=== PATIENT | female | born 1935 | race Caucasian/White ===

== ENCOUNTER 2017-01-14 18:00 | Inpatient (IN) | payer MEDICARE, OTHER ==
[2017-01-14] MEDS ORDERED: Ondansetron 4 MG/2 ML SDV IVPUSH ONE (18:26)
[2017-01-14] MEDS ORDERED: Sodium Chloride 0.9% 500 ML IV SCH (18:30)
--- NOTE | 2017-01-14 18:34 | EDM.PDOC ---
ED HPI GENERAL MEDICAL PROBLEM - General Chief Complaint: General Stated Complaint: SENT BY DR. BAUTISTA Time Seen by Provider: 01/14/17 18:05 Source of Information: Reports: Patient, Provider History Limitations: Reports: No Limitations - History of Present Illness INITIAL COMMENTS - FREE TEXT/NARRATIVE: The patient was sent by Dr Bautista for renal insufficiency and hyperkalemia. The patient said on January 02 she had a physical and she was doing fine. The next days she developed nausea and dizziness. She said it is like the room is spinning. She says it is not there all the time. She denies any headache. She has no chest pain or shortness of breath. She has no vision changes or hearing changes. She has no abdominal pain. She has decreased appetite. She went to Dr Bautista's office today and he checked an EKG and labs. Her EKG shows a sinus bradycardia and LBBB which is all old for her. Her creatinine was 2.09 and BUN was elevated to 50. She is in renal insufficiency. Her K was elevated to 6.1. Dr Bautista sent her over for possible admission. Onset: Gradual Duration: Day(s): (10) Severity: Moderate Improves with: Reports: None Worsens with: Reports: Movement Associated Symptoms: Reports: Nausea/Vomiting. Denies: Confusion, Chest Pain, Cough, Fever/Chills, Shortness of Breath - Related Data Allergies Allergy/AdvReac Type Severity Reaction Status Date / Time No Known Allergies Allergy Verified 10/17/15 09:10 Home Meds: Home Meds Calcium Carbonate [Calcium] 600 mg PO DAILY 01/14/17 [History] Cyanocobalamin (Vitamin B-12) [Vitamin B-12] 2,500 mg PO DAILY 01/14/17 [History ] Diltiazem [Cardizem CD] 180 mg PO DAILY 01/14/17 [History] Hydrochlorothiazide 25 mg PO DAILY 01/14/17 [History] Multivitamin [Multivitamins] 1 tab PO DAILY 01/14/17 [History] [place]-3/DHA/Epa/Fish Oil [[place]-3 Fish Oil 1,000 MG Sfgl] 1,000 mg PO DAILY [History] Pantoprazole Sodium [Protonix] 40 mg PO BID 01/14/17 [History] Simvastatin [Zocor] 10 mg PO BEDTIME 01/14/17 [History] Valsartan 320 mg PO DAILY 01/14/17 [History] traMADol [Ultram] 50 mg PO Q6H PRN 01/14/17 [History] ED ROS GENERAL - Review of Systems Review Of Systems: See Below Constitutional: Reports: No Symptoms HEENT: Reports: No Symptoms Respiratory: Reports: No Symptoms Cardiovascular: Reports: No Symptoms Endocrine: Reports: No Symptoms GI/Abdominal: Reports: Nausea. Denies: Abdominal Pain, Vomiting : Reports: No Symptoms Musculoskeletal: Reports: No Symptoms Skin: Reports: No Symptoms Neurological: Reports: Dizziness. Denies: Headache ED EXAM, GENERAL - Physical Exam Exam: See Below Exam Limited By: No Limitations General Appearance: Alert, No Apparent Distress Eye Exam: Right Eye: Nystagmus Ears: Normal External Exam Nose: Normal Inspection Throat/Mouth: Normal Inspection Head: Atraumatic, Normocephalic Neck: Normal Inspection Respiratory/Chest: No Respiratory Distress, Lungs Clear, Normal Breath Sounds Cardiovascular: Regular Rate, Rhythm, No Edema, No Murmur GI/Abdominal: Soft, Non-Tender, No Organomegaly, No Mass Back Exam: Normal Inspection Extremities: Normal Inspection Neurological: Alert, Oriented, No Motor/Sensory Deficits Course - Vital Signs Last Recorded V/S: Last Vital Signs Temp 97.0 F 01/14/17 18:09 Pulse 63 01/14/17 18:09 Resp 20 01/14/17 18:09 BP 151/61 H 01/14/17 18:09 Pulse Ox 97 01/14/17 18:09 - Orders/Labs/Meds Orders: Active Orders 24 hr Category Date Time Status Cardiac Monitoring [RC] . DIRECTED Care 01/14/17 18:24 Active Peripheral IV Care [RC] . DIRECTED Care 01/14/17 18:24 Active Head wo Cont [CT] Stat Exams 01/14/17 18:25 Taken UA W/MICROSCOPIC [URIN] Stat Lab 01/14/17 18:24 Uncollected Sodium Chloride 0.9% [Normal Saline] 500 ml Med 01/14/17 18:30 Active IV .BOLUS Sodium Chloride 0.9% [Saline Flush] Med 01/14/17 18:24 Active 10 ml FLUSH ASDIRECTED PRN Peripheral IV Insertion Adult [OM.PC] Stat Oth 01/14/17 18:24 Ordered Medication Orders Sodium Chloride (Normal Saline) 500 mls @ 1,000 mls/hr IV .BOLUS SUELLEN Last Admin: 01/14/17 18:37 Dose: 1,000 mls/hr Sodium Chloride (Saline Flush) 10 ml FLUSH ASDIRECTED PRN PRN Reason: Keep Vein Open Last Admin: 01/14/17 18:40 Dose: 10 ml Labs: Laboratory Tests 01/14/17 Range/Units 18:20 Sodium 137 (136-145) mEq/L Potassium 5.4 H (3.5-5.1) mEq/L Chloride 102 (98-107) mEq/L Carbon Dioxide 25 (21-32) mEq/L Anion Gap 15.4 H (5-15) BUN 50 H (7-18) mg/dL Creatinine 2.2 H (0.55-1.02) mg/dL Est Cr Clr Drug Dosing 14.40 mL/min Estimated GFR (MDRD) 21 (>60) mL/min BUN/Creatinine Ratio 22.7 H (14-18) Glucose 98 (83-115) mg/dL Calcium 9.5 (8.5-10.1) mg/dL Total Bilirubin 0.3 (0.2-1.0) mg/dL AST 20 (15-37) U/L ALT 30 (14-59) U/L Alkaline Phosphatase 74 (46-116) U/L Troponin I < 0.017 (0.00-0.056) ng/mL Total Protein 7.7 (6.4-8.2) g/dl Albumin 4.2 (3.4-5.0) g/dl Globulin 3.5 gm/dL Albumin/Globulin Ratio 1.2 (1-2) Meds: Medications Generic Name Dose Route Start Last Admin Trade Name Freq PRN Reason Stop Dose Admin Sodium Chloride 500 mls @ 1,000 mls/hr 01/14/17 18:30 01/14/17 18:37 Normal Saline IV 1,000 mls/hr .BOLUS SUELLEN Administration Sodium Chloride 10 ml 01/14/17 18:24 01/14/17 18:40 Saline Flush FLUSH 10 ml ASDIRECTED PRN Administration Keep Vein Open Discontinued Medications Generic Name Dose Route Start Last Admin Trade Name Freq PRN Reason Stop Dose Admin Meclizine HCl 25 mg 01/14/17 18:26 01/14/17 18:40 Antivert PO 01/14/17 18:27 25 mg ONETIME ONE Administration Ondansetron HCl 4 mg 01/14/17 18:26 01/14/17 18:38 Zofran IVPUSH 01/14/17 18:27 4 mg ONETIME ONE Administration - Re-Assessments/Exams Free Text/Narrative Re-Assessment/Exam: 01/14/17 18:[address] of her head, labs, IV NS 500mL bolus, zofran 4mg IV and antivert 25mg by mouth. 01/14/17 19:32 Her CBC looks good from the clinic. He creatinine is elevated at 2.2 and her K was 5.4. Her BUN was 50. Her troponin is negative. Her EKG shows a LBBB and bradycardia. I feels she needs to be admitted. I called Dr Meza and she agreed to the admission. 01/14/17 19:[address] of her head looks good. Departure - Departure Time of Disposition: 19:35 Disposition: Refer to Observation Condition: Good Clinical Impression: Renal insufficiency, Hyperkalemia, Vertigo - Discharge Information Forms: ED Department Discharge - My Orders Last 24 Hours: My Active Orders 01/14/17 18:24 Cardiac Monitoring [RC] . DIRECTED Peripheral IV Care [RC] . DIRECTED UA W/MICROSCOPIC [URIN] Stat Sodium Chloride 0.9% [Saline Flush] 10 ml FLUSH ASDIRECTED PRN Peripheral IV Insertion Adult [OM.PC] Stat 01/14/17 18:25 Head wo Cont [CT] Stat 01/14/17 18:30 Sodium Chloride 0.9% [Normal Saline] 500 ml IV .BOLUS - Assessment/Plan Last 24 Hours: My Active Orders 01/14/17 18:24 Cardiac Monitoring [RC] . DIRECTED Peripheral IV Care [RC] . DIRECTED UA W/MICROSCOPIC [URIN] Stat Sodium Chloride 0.9% [Saline Flush] 10 ml FLUSH ASDIRECTED PRN Peripheral IV Insertion Adult [OM.PC] Stat 01/14/17 18:25 Head wo Cont [CT] Stat 01/14/17 18:30 Sodium Chloride 0.9% [Normal Saline] 500 ml IV .BOLUS
[2017-01-14] MEDS: Sodium Chloride 0.9% 10 ML Syringe FLUSH PRN (18:40)
[2017-01-14] MEDS ORDERED: Sodium Chloride 0.9% 500 ML IV ONE (19:38)
--- NOTE | 2017-01-14 19:42 | CT ---
Head CT Technique: Multiple axial sections through the brain were obtained. Intravenous contrast was not utilized. Comparison: Previous MRI brain of 07/12/12, no other intracranial imaging is available. Findings: Ventricles along with basal cisterns and sulci over the convexities appear within normal limits for the patient's age. Minimal areas of diminished density are seen within the periventricular and subcortical white matter compatible with minimal small vessel ischemic demyelination change. 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 No other abnormal parenchymal densities are seen. No evidence of intracranial hemorrhage. No midline shift or mass effect is seen. Minimal mucosal thickening is seen within the ethmoid sinuses which is felt to be incidental. No acute calvarial abnormality is appreciated. Impression: 1. Mild senescent change. Incidental sinus findings. 2. No acute intracranial abnormality is identified on noncontrast head CT exam. Diagnostic code #2
[2017-01-14] MEDS ORDERED: Acetaminophen Soln 650 MG/20.3 ML UD Cup PO PRN (20:43)
[2017-01-14] MEDS ORDERED: Lactated Ringers 1,000 ML IV SCH (20:45)
[2017-01-14] MEDS: Simvastatin 10 MG Tab PO SCH (20:55)
[2017-01-14] MEDS: Pantoprazole 40 MG Tab.CR PO SCH (20:55)
--- NOTE | 2017-01-14 20:58 | PCM.HP ---
H&P History of Present Illness - General Date of Service: 01/14/17 Admit Problem/Dx: Admission Diagnosis/Problem Admission Diagnosis/Problem Vertigo Source of Information: Provider History Limitations: Reports: No Limitations - History of Present Illness Initial Comments - Free Text/Narative: 81 year old female who had been recently treated for UTI with Bactrim; also recently took Ultram for back pain. She presents in ARF with hyperkalemia. Describes dizziness, no recent fall. Unable to clarify vertigo as a symptom, it appears doubtful. There has been a loss of appetite and a complaint of chills. Denies CP, cough or change to SOB. She had been seen in her PCP's office on the day of her admission and had been sent to the ED for further evaluation. 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 Onset of Symptoms: Reports: Unknown/Unsure Duration of Symptoms: Reports: Week(s):, Getting Worse Location: Reports: Abdomen Quality: Reports: Same as Previous Episode Severity: Moderate Improves with: Reports: Medication Worsens with: Reports: None Associated Symptoms: Reports: Fever/Chills, Loss of Appetite, Malaise, Weakness - Related Data Allergies/Adverse Reactions: Allergies Allergy/AdvReac Type Severity Reaction Status Date / Time No Known Allergies Allergy Verified 01/14/17 20:32 Home Medications: Home Meds Calcium Carbonate [Calcium] 600 mg PO DAILY 01/14/17 [History] Cyanocobalamin (Vitamin B-12) [Vitamin B-12] 2,500 mg PO DAILY 01/14/17 [History ] Diltiazem [Cardizem CD] 180 mg PO DAILY 01/14/17 [History] Hydrochlorothiazide 25 mg PO DAILY 01/14/17 [History] Multivitamin [Multivitamins] 1 tab PO DAILY 01/14/17 [History] [place]-3/DHA/Epa/Fish Oil [[place]-3 Fish Oil 1,000 MG Sfgl] 1,000 mg PO DAILY [History] Pantoprazole Sodium [Protonix] 40 mg PO BID 01/14/17 [History] Simvastatin [Zocor] 10 mg PO BEDTIME 01/14/17 [History] Valsartan 320 mg PO DAILY 01/14/17 [History] traMADol [Ultram] 50 mg PO Q6H PRN 01/14/17 [History] Past Medical History Cardiovascular History: Reports: Hypertension, Other (See Below) Other Cardiovascular History: hperlipidema Respiratory History: Reports: Other (See Below) Other Respiratory History: 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 Gastrointestinal History: Reports: GERD Musculoskeletal History: Reports: Other (See Below) Other Musculoskeletal History: pins and rods in low back Psychiatric History: Reports: Anxiety, Depression Oncologic (Cancer) History: Reports: Lung - Past Surgical History GI Surgical History: Reports: Cholecystectomy Musculoskeletal Surgical History: Reports: Knee Replacement Social & Family History - Tobacco Use Smoking Status *Q: Never Smoker Second Hand Smoke Exposure: Yes - Caffeine Use Caffeine Use: Reports: Coffee, Soda, Tea - Recreational Drug Use Recreational Drug Use: No H&P Review of Systems - Review of Systems: Review Of Systems: See Below General: Reports: Chills, Malaise, Weakness, Decreased Appetite HEENT: Reports: No Symptoms Pulmonary: Reports: No Symptoms Cardiovascular: Reports: Lightheadedness Gastrointestinal: Reports: Abdominal Pain, Decreased Appetite Genitourinary: Reports: No Symptoms Musculoskeletal: Reports: No Symptoms Skin: Reports: No Symptoms Psychiatric: Reports: No Symptoms Neurological: Reports: No Symptoms Hematologic/Lymphatic: Reports: No Symptoms Immunologic: Reports: No Symptoms Exam - Exam Exam: See Below - Vital Signs Vital Signs: Last Vital Signs Temp 36.1 C 01/14/17 18:09 Pulse 56 L 01/14/17 20:41 Resp 16 01/14/17 20:41 BP 134/82 01/14/17 20:41 Pulse Ox 97 01/14/17 20:41 Weight: 71.668 kg - Exam Quality Assessment: Urinary Catheter, DVT Prophylaxis General: Alert, Oriented, Cooperative HEENT: EOMI, Nares Patent, Normal Nasal Septum, Posterior Pharynx Clear, Pupils Equal, Pupils Reactive Neck: Supple, Trachea Midline Lungs: Normal Respiratory Effort Cardiovascular: Regular Rate, Regular Rhythm Abdomen: Normal Bowel Sounds, Soft (Female) Exam: Deferred Rectal (Female) Exam: Deferred Back Exam: Normal Inspection Extremities: Normal Inspection Skin: Warm Neurological: Cranial Nerves Intact Neuro Extensive - Mental Status: Alert, Oriented x3, Normal Mood/Affect, Normal Cognition Neuro Extensive - Motor, Sensory, Reflexes: CN II-XII Intact Psychiatric: Alert, Normal Affect, Normal Mood - Patient Data Result Diagrams: 01/14/17 18:20 *Q Meaningful Use (ADM) - VTE *Q VTE Criteria *Q: - Stroke *Q Stroke Criteria *Q: - AMI *Q AMI Criteria *Q: - Problem List (1) Dizziness SNOMED Code(s): 553818670, 852680356 ICD Code: R42 - DIZZINESS AND GIDDINESS Status: Acute Current Visit: Yes (2) Hyperkalemia SNOMED Code(s): 37519992 ICD Code: E87.5 - HYPERKALEMIA Status: Acute Current Visit: Yes (3) Renal insufficiency SNOMED Code(s): 015565261, 837730141 ICD Code: N28.9 - DISORDER OF KIDNEY AND URETER, UNSPECIFIED Status: Acute Current Visit: Yes (4) UTI (urinary tract infection) SNOMED Code(s): 14856862 ICD Code: N39.0 - URINARY TRACT INFECTION, SITE NOT SPECIFIED Status: Acute Current Visit: Yes (5) Back pain SNOMED Code(s): 464992778 ICD Code: M54.9 - DORSALGIA, UNSPECIFIED Status: Acute Current Visit: Yes (6) Hypertension SNOMED Code(s): 60060149 ICD Code: I10 - ESSENTIAL (PRIMARY) HYPERTENSION Status: Acute Current Visit: Yes (7) Hyperlipidemia SNOMED Code(s): 47257307 ICD Code: E78.5 - HYPERLIPIDEMIA, UNSPECIFIED Status: Acute Current Visit : Yes Problem List Initiated/Reviewed/Updated: Yes Orders Last 24hrs: Active Orders 24 hr Category Date Time Status Admission Status [Patient Status] [ADT] Routine ADT 01/14/17 20:18 Active Antiembolic Devices [RC] PER UNIT ROUTINE Care 01/14/17 20:28 Active Insert Costello Catheter [Insert Urinary Catheter] [OM.PC] Care 01/14/17 20:30 Ordered Q24H Urinary Catheter Assessment [RC] ASDIRECTED Care 01/14/17 20:28 Active Vital Signs [RC] PER UNIT ROUTINE Care 01/14/17 20:27 Active Consult to Occupational Therapy [OT Evaluation and Cons 01/15/17 09:00 Active Treatment] [CONS] Routine Consult to Physical Therapy [PT Evaluation and Cons 01/15/17 09:00 Active Treatment] [CONS] Routine Consult to Enroller [CONS] Routine Cons 01/14/17 20:33 Active BASIC METABOLIC PANEL,BMP [CHEM] DAILY Lab 01/15/17 05:00 Ordered BASIC METABOLIC PANEL,BMP [CHEM] DAILY Lab 01/16/17 05:00 Ordered BASIC METABOLIC PANEL,BMP [CHEM] DAILY Lab 01/17/17 05:00 Ordered BASIC METABOLIC PANEL,BMP [CHEM] DAILY Lab 01/18/17 05:00 Ordered CBC WITH AUTO DIFF [HEME] DAILY Lab 01/15/17 05:00 Ordered CBC WITH AUTO DIFF [HEME] DAILY Lab 01/16/17 05:00 Ordered CBC WITH AUTO DIFF [HEME] DAILY Lab 01/17/17 05:00 Ordered CBC WITH AUTO DIFF [HEME] DAILY Lab 01/18/17 05:00 Ordered CRP [C-REACTIVE PROTEIN] [CHEM] DAILY Lab 01/15/17 05:00 Ordered CRP [C-REACTIVE PROTEIN] [CHEM] DAILY Lab 01/16/17 05:00 Ordered CRP [C-REACTIVE PROTEIN] [CHEM] DAILY Lab 01/17/17 05:00 Ordered CRP [C-REACTIVE PROTEIN] [CHEM] DAILY Lab 01/18/17 05:00 Ordered CULTURE URINE [RM] Routine Lab 01/14/17 20:46 Uncollected MAGNESIUM [CHEM] DAILY Lab 01/15/17 05:00 Ordered MAGNESIUM [CHEM] DAILY Lab 01/16/17 05:00 Ordered MAGNESIUM [CHEM] DAILY Lab 01/17/17 05:00 Ordered MAGNESIUM [CHEM] DAILY Lab 01/18/17 05:00 Ordered Acetaminophen [Tylenol] Med 01/14/17 20:43 Active 650 mg PO Q6H PRN Calcium Carbonate Med 01/15/17 09:00 Active 600 mg PO DAILY Diltiazem [Cardizem] Med 01/15/17 09:00 Pending 90 mg PO Q12HR Heparin Sodium Med 01/14/17 21:00 Ordered 5,000 units SUBCUT Q8H Lactated Ringers [Ringers, Lactated] 1,000 ml Med 01/14/17 20:45 Active IV ASDIRECTED Lactated Ringers [Ringers, Lactated] 1,000 ml Med 01/14/17 23:45 Active IV ASDIRECTED Multivitamins,Therapeutic [Thera] Med 01/15/17 09:00 Active 1 each PO DAILY Pantoprazole [ProTONIX] Med 01/14/17 21:00 Active 40 mg PO BID@0700,2100 Simvastatin [Zocor] Med 01/14/17 21:00 Active 10 mg PO BEDTIME MAYI Hose [Antiembolic Hose] [OM.PC] Routine Oth 01/14/17 20:28 Ordered Code Status [Resuscitation Status] Routine Resus Stat 01/14/17 20:51 Ordered Medication Orders Acetaminophen (Tylenol) 650 mg PO Q6H PRN PRN Reason: Pain (moderate 4-6) Calcium Carbonate/Glycine (Calcium Carbonate) 600 mg PO DAILY SUELLEN Diltiazem HCl (Cardizem) 90 mg PO Q12HR SUELLEN Heparin Sodium (Porcine) (Heparin Sodium) 5,000 units SUBCUT Q8H SUELLEN Sodium Chloride (Normal Saline) 500 mls @ 1,000 mls/hr IV .BOLUS SUELLEN Stop: 01/14/17 23:30 Last Admin: 01/14/17 18:37 Dose: 1,000 mls/hr Lactated Ringer's (Ringers, Lactated) 1,000 mls @ 100 mls/hr IV ASDIRECTED SUELLEN Stop: 01/14/17 23:45 Lactated Ringer's (Ringers, Lactated) 1,000 mls @ 70 mls/hr IV ASDIRECTED SUELLEN Stop: 01/15/17 11:45 Multivitamins (Thera) 1 each PO DAILY SUELLEN Pantoprazole Sodium (Protonix) 40 mg PO BID@0700,2100 SUELLEN Simvastatin (Zocor) 10 mg PO BEDTIME SUELLEN Sodium Chloride (Saline Flush) 10 ml FLUSH ASDIRECTED PRN PRN Reason: Keep Vein Open Last Admin: 01/14/17 18:40 Dose: 10 ml Assessment/Plan Comment:: Impression: Hyperkalemia in ARF; dehydration Baseline CKD, stage? Dizziness cf vertigo, new onset? Hypertension, orthostatics are pending UTI, recent treatment with Bactrim DS Back pain, recent use of ultram Chronic Hyperlipidemia GERD Plan: IVF 24 Costello Cath for I/Os with ARF/hyperkalemia Check infectious source Kayexelate Daily Labs Hold ARB and renal toxic meds UFH for DVT prophylaxis GI prophylaxis SW/PT/OT
[2017-01-14] MEDS ORDERED: Sodium Polystyrene Sulfonate 15 GM/60 ML Susp 60 ML Bot PO ONE (21:05)
[2017-01-14] MEDS ORDERED: hydrALAZINE 20 MG/ML SDV IVPUSH PRN (21:18)
[2017-01-14] MEDS: Heparin Sodium 5,000 Units/ML Vial SUBCUT SCH (22:49)
[2017-01-14] MEDS: Lactated Ringers 1,000 ML IV SCH (23:57)
[2017-01-15] MEDS ORDERED: traZODone 50 MG Tab PO PRN (00:39)
[2017-01-15] MEDS: Heparin Sodium 5,000 Units/ML Vial SUBCUT SCH ×3 (06:07→21:44)
[2017-01-15] MEDS: Pantoprazole 40 MG Tab.CR PO SCH ×2 (06:07→21:43)
[2017-01-15] MEDS ORDERED: Diphtheria,Pertussis(Acell),Tetanus Vaccine 0.5 ML SDV IM ONE (07:43)
[2017-01-15] MEDS: Calcium Carbonate 600 MG Tab PO SCH (08:23)
[2017-01-15] MEDS: Multivitamins,Therapeutic Tab PO SCH (08:23)
--- NOTE | 2017-01-15 09:03 | PCM.PN ---
- General Info Date of Service: 01/15/17 Admission Dx/Problem (Free Text): Admission Diagnosis/Problem Admission Diagnosis/Problem Vertigo Subjective Update: Follow Up Functional Status: Reports: pain controlled, tolerating diet, ambulating, urinating. Denies: new symptoms - Review of Systems General: Denies: Fever, Weakness, Fatigue, Malaise, Chills HEENT: Reports: no symptoms Pulmonary: Denies: shortness of breath Cardiovascular: Reports: No Symptoms Gastrointestinal: Reports: No symptoms Genitourinary: Reports: no symptoms Musculoskeletal: Reports: no symptoms Skin: Reports: cyanosis, jaundice Neurological: Reports: Difficulty Walking, Gait Disturbance. Denies: Confusion , Weakness Psychiatric: Denies: depression, anxiety, agitation, hallucinations Systems Review Comment:: No overnight or acute issues. She is doing pretty good. She denies having vertigo. She has no new complaints. - Patient Data Vitals - most recent: Last Vital Signs Temp 36.4 C 01/15/17 08:23 Pulse 63 01/15/17 08:23 Resp 18 01/15/17 07:31 BP 122/43 L 01/15/17 08:23 Pulse Ox 98 01/15/17 08:23 Weight - most recent: 72.62 kg I&O - last 24 hours: Intake & Output 01/14/17 01/15/17 01/15/17 22:59 06:59 14:59 Intake Total 951 Output Total 475 350 Balance 476 -350 Lab Results last 24 hrs: Laboratory Results - last 24 hr 01/15/17 01/15/17 Range/Units 05:55 05:55 WBC 2.94 L (3.98-10.04) K/mm3 RBC 3.74 L (3.98-5.22) M/mm3 Hgb 11.1 L (11.2-15.7) gm/L Hct 34.2 (34.1-44.9) % MCV 91.4 (79.4-94.8) fl MCH 29.7 (25.6-32.2) pg MCHC 32.5 (32.2-35.5) g/dl RDW Std Deviation 42.3 (36.4-46.3) fL Plt Count 205 (182-369) K/mm3 MPV 10.4 (9.4-12.3) fl Neut % (Auto) 46.9 (34.0-71.1) % Lymph % (Auto) 41.2 (19.3-51.7) % [place] % (Auto) 8.2 (4.7-12.5) % Eos % (Auto) 3.4 (0.7-5.8) Baso % (Auto) 0.3 (0.1-1.2) % Neut # (Auto) 1.38 L (1.56-6.13) K/mm3 Lymph # (Auto) 1.21 (1.18-3.74) K/mm3 [place] # (Auto) 0.24 (0.24-0.36) K/mm3 Eos # (Auto) 0.10 (0.04-0.36) K/mm3 Baso # (Auto) 0.01 (0.01-0.08) K/mm3 Manual Slide Review Normal smear Sodium 139 (136-145) mEq/L Potassium 5.2 H (3.5-5.1) mEq/L Chloride 106 (98-107) mEq/L Carbon Dioxide 25 (21-32) mEq/L Anion Gap 13.2 (5-15) BUN 41 H (7-18) mg/dL Creatinine 1.7 H (0.55-1.02) mg/dL Est Cr Clr Drug Dosing 18.64 mL/min Estimated GFR (MDRD) 29 (>60) mL/min BUN/Creatinine Ratio 24.1 H (14-18) Glucose 99 (83-115) mg/dL Calcium 8.4 L (8.5-10.1) mg/dL Magnesium 1.9 (1.8-2.4) mg/dl C-Reactive Protein < 0.2 (<1.0) mg/dL Med Orders - Current: Current Medications Acetaminophen (Tylenol) 650 mg PO Q6H PRN PRN Reason: Pain (moderate 4-6) Calcium Carbonate/Glycine (Calcium Carbonate) 600 mg PO DAILY [facility] Last Admin: 01/15/17 08:23 Dose: 600 mg Diltiazem HCl (Cardizem) 90 mg PO Q12HR [facility] Heparin Sodium (Porcine) (Heparin Sodium) 5,000 units SUBCUT Q8HR [facility] Last Admin: 01/15/17 06:07 Dose: 5,000 units Hydralazine HCl (Apresoline) 20 mg IVPUSH Q8H PRN PRN Reason: Hypertension Lactated Ringer's (Ringers, Lactated) 1,000 mls @ 70 mls/hr IV ASDIRECTED [facility] Stop: 01/15/17 11:45 Last Admin: 01/14/17 23:57 Dose: 70 mls/hr Multivitamins (Thera) 1 each PO DAILY [facility] Last Admin: 01/15/17 08:23 Dose: 1 each Pantoprazole Sodium (Protonix) 40 mg PO BID@0700,2100 [facility] Last Admin: 01/15/17 06:07 Dose: 40 mg Simvastatin (Zocor) 10 mg PO BEDTIME [facility] Last Admin: 01/14/17 20:55 Dose: 10 mg Sodium Chloride (Saline Flush) 10 ml FLUSH ASDIRECTED PRN PRN Reason: Keep Vein Open Last Admin: 01/14/17 18:40 Dose: 10 ml Trazodone HCl (Trazodone) 50 mg PO ONETIME PRN PRN Reason: Sleep Last Admin: 01/15/17 00:57 Dose: 50 mg Discontinued Medications Diphtheria/Tetanus/Acell Pertussis (Adacel) 0.5 ml IM .ONCE ONE Stop: 01/15/17 07:44 Sodium Chloride (Normal Saline) 500 mls @ 1,000 mls/hr IV .BOLUS [facility] Stop: 01/14/17 23:30 Last Admin: 01/14/17 18:37 Dose: 1,000 mls/hr Sodium Chloride (Normal Saline) 500 mls @ 1,000 mls/hr IV .BOLUS ONE Stop: 01/14/17 20:07 Last Admin: 01/14/17 19:50 Dose: 1,000 mls/hr Lactated Ringer's (Ringers, Lactated) 1,000 mls @ 100 mls/hr IV ASDIRECTED [facility] Stop: 01/14/17 23:45 Last Admin: 01/14/17 20:56 Dose: 100 mls/hr Meclizine HCl (Antivert) 25 mg PO ONETIME ONE Stop: 01/14/17 18:27 Last Admin: 01/14/17 18:40 Dose: 25 mg Ondansetron HCl (Zofran) 4 mg IVPUSH ONETIME ONE Stop: 01/14/17 18:27 Last Admin: 01/14/17 18:38 Dose: 4 mg Sodium Polystyrene Sulfonate (Kayexalate) 45 gm PO NOW ONE Stop: 01/14/17 21:06 Last Admin: 01/14/17 21:56 Dose: 45 gm - Exam General: alert, oriented, cooperative, no acute distress HEENT: Pupils equal, Pupils reactive, EOMI, Mucous membr. moist/pink Neck: supple, trachea midline, no JVD Lungs: Clear to auscultation, Normal respiratory effort Cardiovascular: Regular Rate, Regular Rhythm Abdomen: bowel sounds present, no tenderness, no distension (Female) Exam: Deferred Back Exam: Normal Inspection, Decreased Range of Motion Extremities: no edema, normal pulses, no tenderness/swelling, no clubbing, no cyanosis, no calf tenderness Peripheral Pulses: 2+: Posterior Tibial (L), Posterior Tibial (R), Dorsalis Pedis (L), Dorsalis Pedis (R) Skin: warm, dry, intact Neurological: no new focal deficit Psy/Mental Status: alert, normal affect, normal mood - Problem List Review Problem List Initiated/Reviewed/Updated: Yes - Plan Plan:: Impression: Acute Renal Failure - Baseline Stage 3, GFR 39 (10/16/160 - 2/2 Volume Depletion from poor oral intake and continued intake of BP meds (ARB and Thiazide) - She is currently hydrating - Cr is improving, from 2.2 to 1.7 - Continue hydration and hold ARB/Thiazide Hyperkalemia, Improving - 2/2 ARF - Received initial treatment in ED - K 5.4 now 5.2 - Continue to monitor Dizziness cf vertigo, new onset? - Patient denies having vertigo and any hearing related issues - She admits having dizziness and lightheadedness - Her dizziness/lightheadedness was due to poor intake Borderline Hypotension - Improving - Continue to monitor UTI, recent treatment with Bactrim DS - She received 5 day course treatment - We have no urine culture - Will obtain additional report form her PCP's office Back Pain - On ultram for medical management - Also sees chiropractor for manual manipulation Resolved: Dehydration Chronic Hyperlipidemia GERD Plan: Patient is clinically stable Continue current treatment Discontinue bustamante catheter Will obtain additional records from her PCP's office [facility] for DVT prophylaxis GI prophylaxis SW/PT/OT Code status: 1 Took over care from Dr. Meza. Spoke to patient and confirmed with patient, she did not have vertigo (no spinning or wavy room/objects). She denies any hearing related issues. She admits to having dizziness and lightheadedness. She has been ill for a while and for the past 2 weeks as her symptoms get worse her oral intake significantly diminished. I felt this was the reason why she developed acute renal failure. She was also taking Bactrim that could have worsen her creatinine level but not necessarily her GFR. However this morning she feels pretty good and clinically stable. I expect discharge in the next couple of days.
[2017-01-15] MEDS: Lactated Ringers 1,000 ML IV SCH (10:00)
[2017-01-15] MEDS: Diltiazem IR 30 MG Tab PO SCH ×2 (10:26→21:43)
--- NOTE | 2017-01-15 13:10 | CR ---
Chest: 2 views of the chest were obtained. Comparison: Previous chest x-ray of 04/20/10. Heart size at the upper limits of normal. Mild tortuosity of the thoracic aorta is. Slight scarring is noted within the left upper chest which is stable. No acute appearing infiltrates are seen. Surgical clips are noted within the right abdomen. Mild scoliosis is present within the spine with scattered degenerative change. Impression: 1. Nothing acute is appreciated on 2 view chest x-ray. Incidental findings as noted above. Diagnostic code #2
[2017-01-15] MEDS: Simvastatin 10 MG Tab PO SCH (21:43)
[2017-01-16] MEDS: Pantoprazole 40 MG Tab.CR PO SCH ×2 (06:17→20:45)
[2017-01-16] MEDS: Heparin Sodium 5,000 Units/ML Vial SUBCUT SCH ×4 (06:17→23:42)
[2017-01-16] MEDS: Multivitamins,Therapeutic Tab PO SCH (08:33)
[2017-01-16] MEDS: Calcium Carbonate 600 MG Tab PO SCH (08:33)
[2017-01-16] MEDS: Diltiazem IR 30 MG Tab PO SCH ×2 (08:34→20:44)
[2017-01-16] MEDS: Sodium Chloride 0.9% 10 ML Syringe FLUSH PRN (08:37)
[2017-01-16] MEDS: Levofloxacin 250 MG Tab PO SCH (12:26)
--- NOTE | 2017-01-16 15:52 | PCM.PN ---
- General Info Date of Service: 01/16/17 Admission Dx/Problem (Free Text): Admission Diagnosis/Problem Admission Diagnosis/Problem Vertigo Subjective Update: Follow Up Functional Status: Reports: pain controlled, tolerating diet, ambulating, urinating, new symptoms (feels weak and tired this morning) - Review of Systems General: Reports: Weakness, Fatigue. Denies: Fever, Malaise, Chills HEENT: Reports: no symptoms Pulmonary: Denies: shortness of breath Cardiovascular: Denies: Chest Pain Gastrointestinal: Denies: Abdominal pain, Difficulty swallowing, Nausea, Vomiting Genitourinary: Reports: no symptoms Musculoskeletal: Reports: no symptoms Skin: Reports: no symptoms Neurological: Reports: Weakness. Denies: Confusion, Dizziness, Headache, Seizure, Tremors, Trouble Speaking, Difficulty Walking, Gait Disturbance Psychiatric: Denies: depression, anxiety, agitation, hallucinations Systems Review Comment:: No overnight issues. She feels weak and tired this morning. She thinks she is getting better. Her labs are fairly unremarkable with improving Cr level but slightly low Mg level at 1.7. - Patient Data Vitals - most recent: Last Vital Signs Temp 37.0 C 01/16/17 15:10 Pulse 73 01/16/17 15:10 Resp 14 01/16/17 15:10 BP 115/77 01/16/17 15:10 Pulse Ox 97 01/16/17 15:10 Weight - most recent: 73.119 kg I&O - last 24 hours: Intake & Output 01/16/17 01/16/17 01/16/17 06:59 14:59 22:59 Intake Total 400 400 918 Output Total 900 1500 Balance -500 400 -582 Lab Results last 24 hrs: Laboratory Results - last 24 hr 01/15/17 01/15/17 01/15/17 Range/Units 05:55 21:50 21:50 WBC (3.98-10.04) K/mm3 RBC (3.98-5.22) M/mm3 Hgb (11.2-15.7) gm/L Hct (34.1-44.9) % MCV (79.4-94.8) fl MCH (25.6-32.2) pg MCHC (32.2-35.5) g/dl RDW Std Deviation (36.4-46.3) fL Plt Count (182-369) K/mm3 MPV (9.4-12.3) fl Neut % (Auto) (34.0-71.1) % Lymph % (Auto) (19.3-51.7) % [place] % (Auto) (4.7-12.5) % Eos % (Auto) (0.7-5.8) Baso % (Auto) (0.1-1.2) % Neut # (Auto) (1.56-6.13) K/mm3 Lymph # (Auto) (1.18-3.74) K/mm3 [place] # (Auto) (0.24-0.36) K/mm3 Eos # (Auto) (0.04-0.36) K/mm3 Baso # (Auto) (0.01-0.08) K/mm3 Sodium 139 (136-145) mEq/L Potassium 5.2 H (3.5-5.1) mEq/L Chloride 106 (98-107) mEq/L Carbon Dioxide 25 (21-32) mEq/L Anion Gap 13.2 (5-15) BUN 41 H (7-18) mg/dL Creatinine 1.7 H (0.55-1.02) mg/dL Est Cr Clr Drug Dosing 18.64 mL/min Estimated GFR (MDRD) 29 (>60) mL/min BUN/Creatinine Ratio 24.1 H (14-18) Glucose 99 (83-115) mg/dL Calcium 8.4 L (8.5-10.1) mg/dL Magnesium 1.9 (1.8-2.4) mg/dl C-Reactive Protein < 0.2 (<1.0) mg/dL Urine Osmolality 369 L (400-1100) mosm/kg Ur Random Creatinine (30.0-125.0) mg/dL Ur Random Microalbumin 3.4 (1.3-20.0) mg/L Mycoplasma pneumon IgM Negative (NEGATIVE) 01/15/17 01/16/17 01/16/17 Range/Units 21:50 06:32 06:32 WBC 3.06 L (3.98-10.04) K/mm3 RBC 4.02 (3.98-5.22) M/mm3 Hgb 11.9 (11.2-15.7) gm/L Hct 36.5 (34.1-44.9) % MCV 90.8 (79.4-94.8) fl MCH 29.6 (25.6-32.2) pg MCHC 32.6 (32.2-35.5) g/dl RDW Std Deviation 41.7 (36.4-46.3) fL Plt Count 227 (182-369) K/mm3 MPV 10.5 (9.4-12.3) fl Neut % (Auto) 44.2 (34.0-71.1) % Lymph % (Auto) 42.8 (19.3-51.7) % [place] % (Auto) 7.5 (4.7-12.5) % Eos % (Auto) 5.2 (0.7-5.8) Baso % (Auto) 0.3 (0.1-1.2) % Neut # (Auto) 1.35 L (1.56-6.13) K/mm3 Lymph # (Auto) 1.31 (1.18-3.74) K/mm3 [place] # (Auto) 0.23 L (0.24-0.36) K/mm3 Eos # (Auto) 0.16 (0.04-0.36) K/mm3 Baso # (Auto) 0.01 (0.01-0.08) K/mm3 Sodium 141 (136-145) mEq/L Potassium 4.7 (3.5-5.1) mEq/L Chloride 106 (98-107) mEq/L Carbon Dioxide 29 (21-32) mEq/L Anion Gap 10.7 (5-15) BUN 30 H (7-18) mg/dL Creatinine 1.3 H (0.55-1.02) mg/dL Est Cr Clr Drug Dosing 24.38 mL/min Estimated GFR (MDRD) 39 (>60) mL/min BUN/Creatinine Ratio 23.1 H (14-18) Glucose 100 (83-115) mg/dL Calcium 9.2 (8.5-10.1) mg/dL Magnesium 1.7 L (1.8-2.4) mg/dl C-Reactive Protein < 0.2 (<1.0) mg/dL Urine Osmolality (400-1100) mosm/kg Ur Random Creatinine 48.5 (30.0-125.0) mg/dL Ur Random Microalbumin (1.3-20.0) mg/L Mycoplasma pneumon IgM (NEGATIVE) Med Orders - Current: Current Medications Acetaminophen (Tylenol) 650 mg PO Q6H PRN PRN Reason: Pain (moderate 4-6) Calcium Carbonate/Glycine (Calcium Carbonate) 600 mg PO DAILY [facility] Last Admin: 01/16/17 08:33 Dose: 600 mg Diltiazem HCl (Cardizem) 90 mg PO Q12HR [facility] Last Admin: 01/16/17 08:34 Dose: Not Given Heparin Sodium (Porcine) (Heparin Sodium) 5,000 units SUBCUT Q8HR [facility] Last Admin: 01/16/17 14:48 Dose: 5,000 units Hydralazine HCl (Apresoline) 20 mg IVPUSH Q8H PRN PRN Reason: Hypertension Levofloxacin (Levaquin) 250 mg PO Q24H [facility] Last Admin: 01/16/17 12:26 Dose: 250 mg Multivitamins (Thera) 1 each PO DAILY [facility] Last Admin: 01/16/17 08:33 Dose: 1 each Pantoprazole Sodium (Protonix) 40 mg PO BID@0700,2100 [facility] Last Admin: 01/16/17 06:17 Dose: 40 mg Simvastatin (Zocor) 10 mg PO BEDTIME [facility] Last Admin: 01/15/17 21:43 Dose: 10 mg Sodium Chloride (Saline Flush) 10 ml FLUSH ASDIRECTED PRN PRN Reason: Keep Vein Open Last Admin: 01/16/17 08:37 Dose: 10 ml Trazodone HCl (Trazodone) 50 mg PO ONETIME PRN PRN Reason: Sleep Last Admin: 01/15/17 00:57 Dose: 50 mg Discontinued Medications Diphtheria/Tetanus/Acell Pertussis (Adacel) 0.5 ml IM .ONCE ONE Stop: 01/15/17 07:44 Sodium Chloride (Normal Saline) 500 mls @ 1,000 mls/hr IV .BOLUS [facility] Stop: 01/14/17 23:30 Last Admin: 01/14/17 18:37 Dose: 1,000 mls/hr Sodium Chloride (Normal Saline) 500 mls @ 1,000 mls/hr IV .BOLUS ONE Stop: 01/14/17 20:07 Last Admin: 01/14/17 19:50 Dose: 1,000 mls/hr Lactated Ringer's (Ringers, Lactated) 1,000 mls @ 100 mls/hr IV ASDIRECTED [facility] Stop: 01/14/17 23:45 Last Admin: 01/14/17 20:56 Dose: 100 mls/hr Lactated Ringer's (Ringers, Lactated) 1,000 mls @ 70 mls/hr IV ASDIRECTED [facility] Stop: 01/15/17 11:45 Last Admin: 01/15/17 10:00 Dose: 70 mls/hr Meclizine HCl (Antivert) 25 mg PO ONETIME ONE Stop: 01/14/17 18:27 Last Admin: 01/14/17 18:40 Dose: 25 mg Ondansetron HCl (Zofran) 4 mg IVPUSH ONETIME ONE Stop: 01/14/17 18:27 Last Admin: 01/14/17 18:38 Dose: 4 mg Sodium Polystyrene Sulfonate (Kayexalate) 45 gm PO NOW ONE Stop: 01/14/17 21:06 Last Admin: 01/14/17 21:56 Dose: 45 gm - Exam General: alert, oriented, cooperative, no acute distress HEENT: Pupils equal, Pupils reactive, EOMI, Mucous membr. moist/pink Neck: supple, trachea midline Lungs: Normal respiratory effort, Decreased breath sounds Cardiovascular: Regular Rate, Regular Rhythm Abdomen: bowel sounds present, soft, no tenderness, no distension (Female) Exam: Deferred Back Exam: Normal Inspection, Decreased Range of Motion Extremities: no edema, normal pulses, no tenderness/swelling, no clubbing, no cyanosis, no calf tenderness Peripheral Pulses: 2+: Dorsalis Pedis (L), Dorsalis Pedis (R) Skin: warm, dry, intact Neurological: no new focal deficit Psy/Mental Status: alert, normal affect, normal mood - Problem List Review Problem List Initiated/Reviewed/Updated: Yes - My Orders Last 24 Hours: My Active Orders 01/15/17 17:49 Retroperitoneal Comp [US] Routine 01/15/17 17:51 URIC ACID, URINE Routine 01/15/17 17:53 EOSINOPHILS, URINE Routine 01/16/17 11:00 Levofloxacin [Levaquin] 250 mg PO Q24H - Plan Plan:: Impression: Acute Renal Failure, Improving - Baseline Stage 3, GFR 39 (4/14/160 - 2/2 Volume Depletion from poor oral intake and continued intake of BP meds (ARB and Thiazide) - Cr continues to improve, level is now 1.3 from 1.7 - Continue hydration and hold ARB/Thiazide - Renal studies fairly unremarkable - Renal U/S: no acute findings UTI positive for E.coli (UA cx from PCP's office) - Treated with Bactrim DS for 7 days but completed only 5 days - Start Low dose Levaquin 250 mg po daily, first dose now Back Pain - On Ultram for medical management - Also sees chiropractor for manual manipulation Generalized Weakness - Likely from above - PT/OT consult Hypomagnesemia - Mg level is 1.7 - Pharmacy to replete and monitor Resolved: Dehydration S/p Hyperkalemia - 2/2 ARF - Received initial treatment in ED - K 5.4 now 5.2 - Continue to monitor S/p Dizziness cf vertigo, new onset? - Patient denies having vertigo and any hearing related issues - She admits having dizziness and lightheadedness - Her dizziness/lightheadedness was due to poor intake S/p Borderline Hypotension - Continue to monitor Chronic: Hyperlipidemia GERD Plan: Patient remains clinically stable Continue current treatment Change to inpatient status CXR was benign and Mycoplasma Ag was negative UFH for DVT prophylaxis GI prophylaxis Code status: 1 Ambulated TID as tolerated Possible d/c in 1-2 days
[2017-01-16] MEDS: Simvastatin 10 MG Tab PO SCH (20:45)
[2017-01-17] MEDS: Pantoprazole 40 MG Tab.CR PO SCH (06:36)
[2017-01-17] MEDS: Heparin Sodium 5,000 Units/ML Vial SUBCUT SCH ×2 (06:36→16:07)
[2017-01-17] MEDS ORDERED: Magnesium Sulfate/Water 2 GM in Premix Bag 1 BAG IV ONE (08:30)
[2017-01-17] MEDS: Multivitamins,Therapeutic Tab PO SCH (08:30)
[2017-01-17] MEDS: Calcium Carbonate 600 MG Tab PO SCH (08:30)
[2017-01-17] MEDS: Diltiazem IR 30 MG Tab PO SCH (08:30)
--- NOTE | 2017-01-17 10:05 | PCM.DCSUM1 ---
Discharge Summary - Hospital Course Brief History: This is an 81 year old elderly white female who had been recently treated for UTI with Bactrim and was found to have acute renal failure with hyperkalemia. She was admitted for medical management. - Discharge Data Discharge Date: 01/17/17 Discharge Disposition: Home, Self-Care 01 Condition: Good - Discharge Diagnosis/Problem(s) (1) Generalized weakness SNOMED Code(s): 61654419 ICD Code: R53.1 - WEAKNESS Status: Resolved (2) Back pain SNOMED Code(s): 669487007 ICD Code: M54.9 - DORSALGIA, UNSPECIFIED Status: Chronic Qualifiers: Back pain location: low back pain Chronicity: chronic Back pain laterality: bilateral Sciatica presence: unspecified whether sciatica present Qualified Code(s): M54.5 - Low back pain; G89.29 - Other chronic pain (3) Dizziness SNOMED Code(s): 368821839, 117734360 ICD Code: R42 - DIZZINESS AND GIDDINESS Status: Resolved (4) Hyperkalemia SNOMED Code(s): 79640970 ICD Code: E87.5 - HYPERKALEMIA Status: Resolved (5) Renal insufficiency SNOMED Code(s): 747587359, 904194094 ICD Code: N28.9 - DISORDER OF KIDNEY AND URETER, UNSPECIFIED Status: Chronic (6) UTI (urinary tract infection) SNOMED Code(s): 29116479 ICD Code: N39.0 - URINARY TRACT INFECTION, SITE NOT SPECIFIED Status: Resolved Qualifiers: Urinary tract infection type: site unspecified Hematuria presence: without hematuria Qualified Code(s): N39.0 - Urinary tract infection, site not specified - Patient Summary/Data Operative Procedure(s) Performed: None Complications: None Consults: None Labs Pending at D/C: None Hospital Course: Patient was primarily admitted for medical management of acute renal failure secondary to UTI. She initially had a urinary tract infection and was treated outpatient. Unfortunately, she did not complete her treatment as prescribed. Patient progressively decline and so was her oral intake. As a result, her renal perfusion diminished. However, her work up to include renal ultrasound were unremarkable. On this admission, the patient was provided supportive care along with adequate IV hydration. She responded well on this regimen. As for her UTI, she was given additional course of antibiotic to take based on sensitivity of her urine culture obtained from her PCP's office. Her hospital course was uncomplicated. Patient improved significantly and she is now ready for discharge. Patient was advised to drink plenty of fluids. She was further advised to follow-up with her primary care doctor as scheduled. Her PCP was called and updated on her discharge care plan on the day of discharge. - Patient Instructions Diet: Usual Diet as Tolerated Activity: As Tolerated Driving: Do Not Drive Showering/Bathing: May Shower Notify Provider of: Fever, Increased Pain, Nausea and/or Vomiting Other/Special Instructions: - Please resume all home medications as directed. - Call your doctor for any questions or concerns - Discharge Plan Home Medications: Home Meds Calcium Carbonate [Calcium] 600 mg PO DAILY 01/14/17 [History] Cyanocobalamin (Vitamin B-12) [Vitamin B-12] 2,500 mg PO DAILY 01/14/17 [History ] Diltiazem [Cardizem CD] 180 mg PO DAILY 01/14/17 [History] Hydrochlorothiazide 12.5 mg PO DAILY 01/14/17 [History] Multivitamin [Multivitamins] 1 tab PO DAILY 01/14/17 [History] Tamms-3/DHA/Epa/Fish Oil [Tamms-3 Fish Oil 1,000 MG Sfgl] 1,000 mg PO DAILY [History] Pantoprazole Sodium [Protonix] 40 mg PO DAILY 01/14/17 [History] Simvastatin [Zocor] 10 mg PO BEDTIME 01/14/17 [History] Valsartan 320 mg PO DAILY 01/14/17 [History] traMADol [Ultram] 50 mg PO Q6H PRN 01/14/17 [History] Patient Handouts: Urinary Tract Infection, Adult, [id number], Dizziness, Easy -to-Read Referrals: Miles Bautista MD [Primary Care Provider] - (Please make a follow-up appointment to see in 1 week.) - Discharge Summary/Plan Comment DC Time >30 min.: Yes (45 mins) Discharge Summary/Plan Comment: Discharge to Home - General Info Date of Service: 01/17/17 Admission Dx/Problem (Free Text: Admission Diagnosis/Problem Admission Diagnosis/Problem Vertigo Subjective Update: Follow Up Functional Status: Reports: Pain Controlled, Tolerating Diet, Ambulating, Urinating. Denies: New Symptoms - Review of Systems General: Denies: Fever, Weakness, Fatigue, Malaise, Chills HEENT: Reports: No Symptoms Pulmonary: Denies: Shortness of Breath Cardiovascular: Denies: Chest Pain Gastrointestinal: Denies: Difficulty Swallowing, Nausea, Vomiting Genitourinary: Reports: No Symptoms Musculoskeletal: Reports: Back Pain Skin: Denies: Cyanosis, Pruritis, Rash Neurological: Denies: Confusion, Dizziness, Difficulty Walking, Weakness, Gait Disturbance Psychiatric: Denies: Depression, Anxiety, Hallucinations Systems Review Comment: No overnight or acute issues. She is doing relatively well. She has no new complaints. She wants to go home. - Patient Data Vitals - Most Recent: Last Vital Signs Temp 36.7 C 01/17/17 03:33 Pulse 62 01/17/17 03:33 Resp 14 01/17/17 03:33 BP 115/94 H 01/17/17 03:33 Pulse Ox 95 01/17/17 03:33 Weight - Most Recent: 72.938 kg I&O - Last 24 hours: Intake & Output 01/16/17 01/17/17 01/17/17 22:59 06:59 14:59 Intake Total 480 800 Output Total 1350 Balance 480 -550 Lab Results - Last 24 hrs: Laboratory Results - last 24 hr 01/17/17 01/17/17 Range/Units 05:45 05:45 WBC 2.87 L (3.98-10.04) K/mm3 RBC 3.91 L (3.98-5.22) M/mm3 Hgb 11.7 (11.2-15.7) gm/L Hct 35.0 (34.1-44.9) % MCV 89.5 (79.4-94.8) fl MCH 29.9 (25.6-32.2) pg MCHC 33.4 (32.2-35.5) g/dl RDW Std Deviation 40.1 (36.4-46.3) fL Plt Count 211 (182-369) K/mm3 MPV 10.5 (9.4-12.3) fl Neut % (Auto) 44.9 (34.0-71.1) % Lymph % (Auto) 42.5 (19.3-51.7) % [place] % (Auto) 7.0 (4.7-12.5) % Eos % (Auto) 4.9 (0.7-5.8) Baso % (Auto) 0.7 (0.1-1.2) % Neut # (Auto) 1.29 L (1.56-6.13) K/mm3 Lymph # (Auto) 1.22 (1.18-3.74) K/mm3 [place] # (Auto) 0.20 L (0.24-0.36) K/mm3 Eos # (Auto) 0.14 (0.04-0.36) K/mm3 Baso # (Auto) 0.02 (0.01-0.08) K/mm3 Manual Slide Review Abnormal smear Sodium 139 (136-145) mEq/L Potassium 4.5 (3.5-5.1) mEq/L Chloride 105 (98-107) mEq/L Carbon Dioxide 30 (21-32) mEq/L Anion Gap 8.5 (5-15) BUN 24 H (7-18) mg/dL Creatinine 1.4 H (0.55-1.02) mg/dL Est Cr Clr Drug Dosing 22.64 mL/min Estimated GFR (MDRD) 36 (>60) mL/min BUN/Creatinine Ratio 17.1 (14-18) Glucose 93 (83-115) mg/dL Calcium 9.0 (8.5-10.1) mg/dL Magnesium 1.8 (1.8-2.4) mg/dl C-Reactive Protein < 0.2 (<1.0) mg/dL Med Orders - Current: Current Medications Acetaminophen (Tylenol) 650 mg PO Q6H PRN PRN Reason: Pain (moderate 4-6) Calcium Carbonate/Glycine (Calcium Carbonate) 600 mg PO DAILY [facility] Last Admin: 01/17/17 08:30 Dose: 600 mg Diltiazem HCl (Cardizem) 90 mg PO Q12HR [facility] Last Admin: 01/17/17 08:30 Dose: Not Given Heparin Sodium (Porcine) (Heparin Sodium) 5,000 units SUBCUT Q8HR [facility] Last Admin: 01/17/17 06:36 Dose: 5,000 units Hydralazine HCl (Apresoline) 20 mg IVPUSH Q8H PRN PRN Reason: Hypertension Levofloxacin (Levaquin) 250 mg PO Q24H [facility] Last Admin: 01/16/17 12:26 Dose: 250 mg Magnesium Sulfate (Pharmacy To Dose - Magnesium Replacement) 1 dose .XX ASDIRECTED [facility] Multivitamins (Thera) 1 each PO DAILY [facility] Last Admin: 01/17/17 08:30 Dose: 1 each Pantoprazole Sodium (Protonix) 40 mg PO BID@0700,2100 [facility] Last Admin: 01/17/17 06:36 Dose: 40 mg Potassium Chloride (Pharmacy To Dose - Potassium Replacement) 1 dose .XX ASDIRECTED [facility] Simvastatin (Zocor) 10 mg PO BEDTIME [facility] Last Admin: 01/16/17 20:45 Dose: 10 mg Sodium Chloride (Saline Flush) 10 ml FLUSH ASDIRECTED PRN PRN Reason: Keep Vein Open Last Admin: 01/16/17 08:37 Dose: 10 ml Trazodone HCl (Trazodone) 50 mg PO ONETIME PRN PRN Reason: Sleep Last Admin: 01/15/17 00:57 Dose: 50 mg Discontinued Medications Diphtheria/Tetanus/Acell Pertussis (Adacel) 0.5 ml IM .ONCE ONE Stop: 01/15/17 07:44 Sodium Chloride (Normal Saline) 500 mls @ 1,000 mls/hr IV .BOLUS [facility] Stop: 01/14/17 23:30 Last Admin: 01/14/17 18:37 Dose: 1,000 mls/hr Sodium Chloride (Normal Saline) 500 mls @ 1,000 mls/hr IV .BOLUS ONE Stop: 01/14/17 20:07 Last Admin: 01/14/17 19:50 Dose: 1,000 mls/hr Lactated Ringer's (Ringers, Lactated) 1,000 mls @ 100 mls/hr IV ASDIRECTED [facility] Stop: 01/14/17 23:45 Last Admin: 01/14/17 20:56 Dose: 100 mls/hr Lactated Ringer's (Ringers, Lactated) 1,000 mls @ 70 mls/hr IV ASDIRECTED [facility] Stop: 01/15/17 11:45 Last Admin: 01/15/17 10:00 Dose: 70 mls/hr Magnesium Sulfate/Dextrose 1 (gm/ Premix) 100 mls @ 100 mls/hr IV ONETIME ONE Stop: 01/16/17 17:29 Last Admin: 01/16/17 17:14 Dose: 100 mls/hr Magnesium Sulfate 2 gm/ Premix 50 mls @ 50 mls/hr IV ONETIME ONE Stop: 01/17/17 09:29 Last Admin: 01/17/17 08:37 Dose: 50 mls/hr Meclizine HCl (Antivert) 25 mg PO ONETIME ONE Stop: 01/14/17 18:27 Last Admin: 01/14/17 18:40 Dose: 25 mg Ondansetron HCl (Zofran) 4 mg IVPUSH ONETIME ONE Stop: 01/14/17 18:27 Last Admin: 01/14/17 18:38 Dose: 4 mg Sodium Polystyrene Sulfonate (Kayexalate) 45 gm PO NOW ONE Stop: 01/14/17 21:06 Last Admin: 01/14/17 21:56 Dose: 45 gm - Exam General: Reports: alert, oriented, cooperative, no acute distress HEENT: Reports: Pupils equal, Pupils reactive, EOMI, Mucous membr. moist/pink Neck: Reports: supple, trachea midline, no JVD, no thyromegaly Lungs: Reports: Clear to Auscultation, Normal Respiratory Effort Cardiovascular: Reports: Regular Rate, Regular Rhythm Abdomen: Reports: bowel sounds present, soft, no tenderness (Female) Exam: Deferred Rectal (Female) Exam: Deferred Back Exam: Reports: Normal Inspection, Decreased Range of Motion, Vertebral Tenderness Extremities: Reports: no edema, normal pulses, no tenderness/swelling, no clubbing, no cyanosis, no calf tenderness Skin: Reports: warm, dry, intact Neurological: Reports: no new focal deficit Psy/Mental Status: Reports: alert, normal affect, normal mood *Q Meaningful Use (DIS) - VTE *Q VTE Criteria *Q: - Stroke *Q Stroke Criteria *Q: - AMI *Q AMI Criteria *Q:
[2017-01-17 10:29] VITALS: BP 120/71
[2017-01-17] MEDS: Levofloxacin 250 MG Tab PO SCH (10:29)
--- NOTE | 2017-01-17 11:39 | US ---
Renal ultrasound: Multiple real-time images of the kidneys were obtained. Comparison: Previous CT abdomen exam of 03/08/13. Technologist's note: Suboptimal exam due to bowel gas and patient difficulty following breathing instructions. Right and left kidneys show no discrete hydronephrosis or mass. Small cyst is believed to be present within the upper right kidney measuring about 1 cm. Small cyst is seen in this location on prior CT exam. Right kidney measures 10.6 cm in length. Left kidney measures 9.6 cm in length. No abnormality is appreciated within the bladder. Impression: 1. Small upper pole right renal cyst. 2. No additional abnormality is appreciated on renal ultrasound exam. Diagnostic code #2 I agree with preliminary report issued by [facility] ([facility] report finalized on 01/15/17, 10:36 PM Central Time)
== END 2017-01-17 14:37 | disposition home or self-care (01) | DRG 683 ==
LOC: JD.ED 18:00 → JD.MS 20:06 → OBSVTOIN 01-16 15:22
PROVIDERS: ADMIT Internal Medicine Cardiovascular Disease; ATTEND Internal Medicine Cardiovascular Disease
PROC: 0T9B70Z Drainage of Bladder with Drainage Device, Via Natural or Artificial Opening (ICD-10-PCS; principal; 2017-01-14)
DX: N17.9 Acute kidney failure, unspecified (principal); N28.9 Disorder of kidney and ureter, unspecified; N39.0 Urinary tract infection, site not specified; E87.5 Hyperkalemia; E86.0 Dehydration; R42 Dizziness and giddiness; R53.1 Weakness; E78.5 Hyperlipidemia, unspecified; M54.9 Dorsalgia, unspecified; F32.9 Major depressive disorder, single episode, unspecified; K21.9 Gastro-esophageal reflux disease without esophagitis; F41.9 Anxiety disorder, unspecified; Z79.899 Other long term (current) drug therapy; Z85.118 Personal history of other malignant neoplasm of bronchus and lung; Z96.659 Presence of unspecified artificial knee joint
CPT/HCPCS: 36415 ×3; 51702; 70450; 71020; 76770; 80048 ×2; 80053; 81001; 82570; 83735 ×2; 83935; 84484; 85025 ×2; 85049; 86140 ×2; 86738; 87086; 94760; 96361 ×2; 96372 ×3; 96374; 97116 ×4; 97162; 97165; 99285; A9270 ×15; G0378; J1644 ×6; J2405; J7040 ×2; J7050 ×2; J7120 ×3; 82044; 87088; 87184; 87186; 90715; 99284; J3475

== ENCOUNTER 2018-10-01 10:29 | Emergency (ER) | payer MEDICARE, OTHER ==
[2018-10-01] MEDS ORDERED: Sodium Chloride 0.9% 10 ML Syringe FLUSH PRN (10:55)
--- NOTE | 2018-10-01 11:48 | EDM.PDOC ---
ED HPI GENERAL MEDICAL PROBLEM - General Chief Complaint: Cardiovascular Problem Stated Complaint: R EYE VISION PROBLEMS Time Seen by Provider: 10/01/18 10:36 Source of Information: Reports: Patient, RN Notes Reviewed - History of Present Illness INITIAL COMMENTS - FREE TEXT/NARRATIVE: 83-year-old comes in complaint of generalized weakness, dizziness this morning and seeing "black spots in her field of vision for the past month". She states she has been too busy to see her regular medical provider or eye doctor for that. there has been no eye discomfort. She has not been having difficulty with headache, nausea or vomiting. No chest pain or difficulty breathing. The dizziness that she did have this morning has resolved. Did cause enough concern to come into the ED. She is concerned that it may be related to "the dark spots that she has been seeing". Her vision has been okay, able to read and carry-on with other activities of life without difficulty. She also does have a small bruises morning inferior and medial aspect of left thigh. That also is of some concern to them. She did not have that yesterday. She does not recall any particular fall or injury. She is not on blood thinner medication at this time. - Related Data Allergies Allergy/AdvReac Type Severity Reaction Status Date / Time No Known Allergies Allergy Verified 10/01/18 10:37 Home Meds: Home Meds Cyanocobalamin (Vitamin B-12) [Vitamin B-12] 1,000 mcg PO DAILY 01/14/17 [ History] Diltiazem [Cardizem CD] 180 mg PO DAILY 01/14/17 [History] Simvastatin [Zocor] 10 mg PO BEDTIME 01/14/17 [History] Cholecalciferol (Vitamin D3) [Vitamin D3] 5,000 units PO DAILY 10/01/18 [History ] Losartan [Cozaar] 100 mg PO DAILY 10/01/18 [History] Past Medical History HEENT History: Reports: Impaired Vision, Other (See Below) Other HEENT History: wears glasses Cardiovascular History: Reports: Hypertension, Other (See Below) Other Cardiovascular History: hperlipidema Respiratory History: Reports: Other (See Below) Other Respiratory History: 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 Gastrointestinal History: Reports: GERD [employer] History: Reports: Musculoskeletal History: Reports: Other (See Below) Other Musculoskeletal History: pins and rods in low back Psychiatric History: Reports: Anxiety, Depression Endocrine/Metabolic History: Reports: Obesity/BMI 30+ Oncologic (Cancer) History: Reports: Lung - Infectious Disease History Infectious Disease History: Reports: Influenza - Past Surgical History HEENT Surgical History: Reports: None GI Surgical History: Reports: Cholecystectomy Endocrine Surgical History: Reports: None Musculoskeletal Surgical History: Reports: Knee Replacement Social & Family History - Family History Family Medical History: Noncontributory - Tobacco Use Smoking Status *Q: Never Smoker - Caffeine Use Caffeine Use: Reports: Coffee Other Caffeine Use: "not every day" - Recreational Drug Use Recreational Drug Use: No ED ROS GENERAL - Review of Systems Review Of Systems: See Below Constitutional: Denies: Fever, Chills, Diaphoresis HEENT: Denies: Ear Pain, Rhinitis, Sinus Problem, Throat Pain Respiratory: Denies: Shortness of Breath, Pleuritic Chest Pain, Cough Cardiovascular: Denies: Chest Pain GI/Abdominal: Reports: Nausea. Denies: Abdominal Pain, Diarrhea, Vomiting (Gone ) Musculoskeletal: Denies: Shoulder Pain, Arm Pain Skin: Reports: No Symptoms Neurological: Reports: Dizziness (Now better). Denies: Trouble Speaking, Difficulty Walking ED EXAM, GENERAL - Physical Exam Exam: See Below General Appearance: Alert, No Apparent Distress Throat/Mouth: Normal Inspection, Normal Oropharynx Head: Atraumatic. No: Facial Swelling Neck: Supple, Full Range of Motion Respiratory/Chest: No Respiratory Distress, Lungs Clear, Normal Breath Sounds Cardiovascular: Regular Rate, Rhythm GI/Abdominal: Soft, Non-Tender Extremities: Normal Inspection, Normal Range of Motion. No: Pedal Edema, Leg Pain, Increased Warmth, Redness Neurological: Alert, Oriented, No Motor/Sensory Deficits Skin Exam: Warm, Dry, Normal Color EKG INTERPRETATION EKG Date: 10/01/18 Rhythm: NSR [place]: Normal P-Wave: Present QRS: LBBB Course - Vital Signs Last Recorded V/S: Last Vital Signs Temp 97.1 F 10/01/18 10:34 Pulse 64 10/01/18 10:34 Resp 16 10/01/18 10:34 BP 195/66 H 10/01/18 10:34 Pulse Ox 95 10/01/18 10:34 - Orders/Labs/Meds Orders: Active Orders 24 hr Category Date Time Status EKG 12 Lead [EKG Documentation Completion] [RC] STAT Care 10/01/18 10:56 Active Peripheral IV Care [RC] . DIRECTED Care 10/01/18 10:56 Active Sodium Chloride 0.9% [Saline Flush] Med 10/01/18 10:55 Active 10 ml FLUSH ASDIRECTED PRN Peripheral IV Insertion Adult [OM.PC] Stat Oth 10/01/18 10:56 Ordered Medication Orders Sodium Chloride (Saline Flush) 10 ml FLUSH ASDIRECTED PRN PRN Reason: Keep Vein Open Last Admin: 10/01/18 11:33 Dose: 10 ml Labs: Laboratory Tests 10/01/18 10/01/18 Range/Units 11:36 11:36 WBC 3.65 L (3.98-10.04) K/mm3 RBC 4.14 (3.98-5.22) M/mm3 Hgb 12.1 (11.2-15.7) gm/L Hct 37.4 (34.1-44.9) % MCV 90.3 (79.4-94.8) fl MCH 29.2 (25.6-32.2) pg MCHC 32.4 (32.2-35.5) g/dl RDW Std Deviation 43.5 (36.4-46.3) fL Plt Count 258 (182-369) K/mm3 MPV 9.8 (9.4-12.3) fl Neut % (Auto) 57.5 (34.0-71.1) % Lymph % (Auto) 32.6 (19.3-51.7) % [place] % (Auto) 8.5 (4.7-12.5) % Eos % (Auto) 1.1 (0.7-5.8) Baso % (Auto) 0.3 (0.1-1.2) % Neut # (Auto) 2.10 (1.56-6.13) K/mm3 Lymph # (Auto) 1.19 (1.18-3.74) K/mm3 [place] # (Auto) 0.31 (0.24-0.36) K/mm3 Eos # (Auto) 0.04 (0.04-0.36) K/mm3 Baso # (Auto) 0.01 (0.01-0.08) K/mm3 Sodium 141 (136-145) mEq/L Potassium 4.3 (3.5-5.1) mEq/L Chloride 106 (98-107) mEq/L Carbon Dioxide 28 (21-32) mEq/L Anion Gap 11.3 (5-15) BUN 18 (7-18) mg/dL Creatinine 1.0 (0.55-1.02) mg/dL Est Cr Clr Drug Dosing 33.71 mL/min Estimated GFR (MDRD) 53 (>60) mL/min BUN/Creatinine Ratio 18.0 (14-18) Glucose 96 (83-115) mg/dL Calcium 9.4 (8.5-10.1) mg/dL Total Bilirubin 0.7 (0.2-1.0) mg/dL AST 18 (15-37) U/L ALT 20 (14-59) U/L Alkaline Phosphatase 72 (46-116) U/L Troponin I < 0.017 (0.00-0.056) ng/mL Total Protein 6.3 L (6.4-8.2) g/dl Albumin 3.5 (3.4-5.0) g/dl Globulin 2.8 gm/dL Albumin/Globulin Ratio 1.3 (1-2) Meds: Medications Generic Name Dose Route Start Last Admin Trade Name Freq PRN Reason Stop Dose Admin Sodium Chloride 10 ml 10/01/18 10:55 10/01/18 11:33 Saline Flush FLUSH 10 ml ASDIRECTED PRN Administration Keep Vein Open Departure - Departure Time of Disposition: 12:48 Disposition: Home, Self-Care 01 Condition: Fair Clinical Impression: Dizziness Bruise of face Qualifiers: Encounter type: initial encounter Qualified Code(s): S00.83XA - Contusion of other part of head, initial encounter Referrals: Jhoana Verdin MD [Primary Care Provider] - Forms: ED Department Discharge Additional Instructions: Rest, drink plenty of water to maintain hydration, check your blood pressure once or twice daily and keep a log of that for Dr. Verdin, continue current medications as prescribed. See your regular eye doctor as soon as possible, call for appointment. Follow up with Dr. Verdin in about 5-7 days for recheck, call [phone] for appointment. - My Orders Last 24 Hours: My Active Orders 10/01/18 10:55 Sodium Chloride 0.9% [Saline Flush] 10 ml FLUSH ASDIRECTED PRN 10/01/18 10:56 EKG 12 Lead [EKG Documentation Completion] [RC] STAT Peripheral IV Care [RC] . DIRECTED Peripheral IV Insertion Adult [OM.PC] Stat - Assessment/Plan Last 24 Hours: My Active Orders 10/01/18 10:55 Sodium Chloride 0.9% [Saline Flush] 10 ml FLUSH ASDIRECTED PRN 10/01/18 10:56 EKG 12 Lead [EKG Documentation Completion] [RC] STAT Peripheral IV Care [RC] . DIRECTED Peripheral IV Insertion Adult [OM.PC] Stat
[2018-10-01 13:20] VITALS: BP 170/62
== END 2018-10-01 13:20 | disposition home or self-care (01) ==
LOC: JD.ED 10:29
DX: S00.83XA Contusion of other part of head, initial encounter (principal); R42 Dizziness and giddiness; E66.9 Obesity, unspecified; I10 Essential (primary) hypertension; Z79.899 Other long term (current) drug therapy; X58.XXXA Exposure to other specified factors, initial encounter
CPT/HCPCS: 36415; 80053; 84484; 85025; 93005; 93010; 99283; 99284-25

== ENCOUNTER 2018-12-17 18:52 | Emergency (ER) | payer MEDICARE, OTHER ==
[2018-12-17 19:03] VITALS: BP 180/50
--- NOTE | 2018-12-17 20:08 | EDM.PDOC ---
ED HPI GENERAL MEDICAL PROBLEM - General Chief Complaint: Back Pain or Injury Stated Complaint: numbness Time Seen by Provider: 12/17/18 19:19 Source of Information: Reports: Patient, Family (Daughter), RN Notes Reviewed History Limitations: Reports: No Limitations - History of Present Illness INITIAL COMMENTS - FREE TEXT/NARRATIVE: The patient states that she accidentally struck a doorway about 2 weeks ago. She did not fall, but she developed decreased sensation to her left back and lower extremity. There was no weakness. It lasted for a few hours. She states that she was fine up until 16:30 today, when she developed sudden onset of the same lower left back and extremity decreased sensation. Her lower left back hurts if she is getting up from a seated position, although she is able to walk when she is on her feet. No incontinence of bowel or bladder. The patient states that she has a history of a lumbar fusion 20 or 30 years ago. The patient's PCP is Dr. Jhoana Verdin. The patient has an appointment to see Dr. Verdin on 01/09/2019. Lower Back Pain Score (Numeric/FACES): 10 - Related Data Allergies Allergy/AdvReac Type Severity Reaction Status Date / Time No Known Allergies Allergy Verified 12/17/18 19:03 Home Meds: Home Meds Cyanocobalamin (Vitamin B-12) [Vitamin B-12] 1,000 mcg PO DAILY 01/14/17 [ History] Diltiazem [Cardizem CD] 240 mg PO DAILY 01/14/17 [History] Simvastatin [Zocor] 10 mg PO BEDTIME 01/14/17 [History] Cholecalciferol (Vitamin D3) [Vitamin D3] 5,000 units PO DAILY 10/01/18 [History ] Losartan [Cozaar] 100 mg PO DAILY 10/01/18 [History] Multivitamin [Multivitamins] 1 each PO DAILY 12/17/18 [History] Orphenadrine [Norflex] 1 tab PO Q12H PRN #20 tab.er 12/17/18 [Rx] Pantoprazole Sodium [Protonix] 40 mg PO DAILY 12/17/18 [History] Past Medical History HEENT History: Reports: Impaired Vision Other HEENT History: wears glasses Cardiovascular History: Reports: High Cholesterol, Hypertension Gastrointestinal History: Reports: GERD Genitourinary History: Reports: Urinary Incontinence (stress incontinence) [employer] History: Reports: Musculoskeletal History: Reports: Osteoarthritis Psychiatric History: Reports: Anxiety (untreated), Depression (untreated) Endocrine/Metabolic History: Reports: Obesity/BMI 30+ - Infectious Disease History Infectious Disease History: Reports: Influenza - Past Surgical History Respiratory Surgical History: Reports: Lung Resection (Left. The chart indicates it was due to lung cancer, but the patient denies that she had lung cancer. She is not sure why she had lung resection surgery.) GI Surgical History: Reports: Cholecystectomy Neurological Surgical History: Reports: Lumbar Spine (fusion ) Musculoskeletal Surgical History: Reports: Knee Replacement (left), Shoulder Surgery (left, open) Social & Family History - Family History Family Medical History: Noncontributory - Tobacco Use Smoking Status *Q: Never Smoker - Caffeine Use Caffeine Use: Reports: None Other Caffeine Use: "not every day" - Alcohol Use Alcohol Use History: Yes Alcohol Use Frequency: Rarely - Recreational Drug Use Recreational Drug Use: No - Living Situation & Occupation Living situation: Reports: , Alone Occupation: Retired ED ROS GENERAL - Review of Systems Review Of Systems: ROS reveals no pertinent complaints other than HPI. ED EXAM,LOWER BACK PAIN/INJURY - Physical Exam Exam: See Below Exam Limited By: No Limitations General Appearance: Alert, WD/WN, No Apparent Distress Eye Exam: Bilateral Eye: EOMI, Normal Inspection Ears: Normal External Exam, Hearing Grossly Normal Nose: Normal Inspection Throat/Mouth: Normal Lips, Normal Gums, Normal Voice, No Airway Compromise, Other (Upper dentures. Stomatitis right floor of the mouth.) Head: Atraumatic, Normocephalic Neck: Normal Inspection, Full Range of Motion Respiratory/Chest: No Respiratory Distress, Lungs Clear, Normal Breath Sounds, No Accessory Muscle Use Cardiovascular: Normal Peripheral Pulses, Regular Rate, Rhythm, No Edema, No Gallop, No JVD, No Murmur, No Rub GI/Abdominal: Normal Bowel Sounds, Soft, Non-Tender, No Organomegaly, No Distention, No Abnormal Bruit, No Mass (Female) Exam: Deferred Rectal (Female) Exam: Deferred Back Exam: Other (No visible abnormality to the patient's back, such as swelling , erythema, ecchymosis, or abrasion. Pain is reproduced with palpation to the left SI joint and left buttock. No tenderness to the left lower extremity. Straight leg raise on the right is negative to about 80, limited only by anterior left leg discomfort. No radicular pain. Straight leg raise on the left is limited to about 45 by lower left back pain. No lower extremity radicular pain. The patient is able to flex her spine to about 70, limited by lower back and left buttock pain, without radicular symptoms. The patient is able to extend her spine to about 45 without difficulty. Patient is able to tilt her spine to about 45 bilaterally, inducing low back pain only with looking to the left. The patient is able to twist her spine to about 45 bilaterally, without pain. Unilateral knee bend is normal bilaterally, but lower left back pain is induced with left knee bend more than right knee bend.) Extremities: Normal Inspection, Normal Range of Motion, Non-Tender, No Pedal Edema, Normal Capillary Refill Neurological: Alert, Normal Dorsiflexion, Normal Plantar Flexion, No Motor/ Sensory Deficits, Oriented x 3 Psychiatric: Normal Affect Skin Exam: Warm, Dry, Intact, Normal Color, No Rash Course - Vital Signs Last Recorded V/S: Last Vital Signs Temp 36.8 C 12/17/18 19:00 Pulse 66 12/17/18 19:00 Resp 16 12/17/18 19:00 BP 180/50 H 12/17/18 19:00 Pulse Ox 96 12/17/18 19:00 - Re-Assessments/Exams Free Text/Narrative Re-Assessment/Exam: 12/17/18 20:01 Based on my physical examination, I suspect that the patient's lower left back and buttock pain, with occasional radicular symptoms, is due to a muscle spasm, not a herniated intervertebral disc. I am recommending that she take a muscle relaxant, such as Norflex, and an NSAID, such as ibuprofen. I will prescribe Norflex, that the patient can start taking tonight. I explained that it is important that the patient stay active - swimming is best, but walking is good, as well. If her symptoms have not begun to improve by the beginning of this coming week, I would like her to follow-up with her PCP for reevaluation. The patient's daughter also asked me to look in the patient's mouth, because she has been having 2 days of gingival pain, following dental extractions for dentures. The patient appears to have an aphthous ulcer on the right floor of her mouth. Ibuprofen may help, but there is no good treatment for aphthous ulcers. Departure - Departure Time of Disposition: 20:04 Disposition: Home, Self-Care 01 Condition: Good Clinical Impression: Spasm of muscle of lower back, Aphthous ulcer of mouth - Discharge Information *PRESCRIPTION DRUG MONITORING PROGRAM REVIEWED*: Not Applicable *COPY OF PRESCRIPTION DRUG MONITORING REPORT IN PATIENT GE: Not Applicable Prescriptions: Orphenadrine [Norflex] 1 tab PO Q12H PRN #20 tab.er PRN Reason: Muscle Spasm Instructions: Muscle Cramps and Spasms, [id number], Oral Ulcers Referrals: Jhoana Verdin MD [Primary Care Provider] - Forms: ED Department Discharge Additional Instructions: You were seen in the emergency room for lower left back pain with occasional numbness to your left lower extremity. Based on your history and physical examination, your lower back pain is most likely due to a muscle spasm, not a herniated intervertebral disc. A prescription for the muscle relaxant Norflex has been sent to the [facility] , located in the [employer] store. Take one tablet of Norflex every 12 hours, starting this evening, Wednesday, 12/17, as prescribed. In addition to Norflex, we recommend that you take [id number] ibuprofen, 2 tablets (400 mg) every 8 hours, with food. It is very important that you stay active. Swimming is best, but walking is good , as well. Do not just lie in bed. If your back symptoms have not started to improve by the beginning of this coming week, please follow-up with your PCP, Dr. Jhoana Verdin, later this week. If any other problems, please do not hesitate to return to the ER.
== END 2018-12-17 20:17 | disposition home or self-care (01) ==
LOC: JD.ED 18:52
DX: M62.830 Muscle spasm of back (principal); K12.0 Recurrent oral aphthae; E78.00 Pure hypercholesterolemia, unspecified; I10 Essential (primary) hypertension; K21.9 Gastro-esophageal reflux disease without esophagitis; Z79.899 Other long term (current) drug therapy; F41.9 Anxiety disorder, unspecified; Z98.890 Other specified postprocedural states
CPT/HCPCS: 99283

== ENCOUNTER 2020-03-11 17:39 | Emergency (ER) | payer MEDICARE, OTHER ==
[2020-03-11 17:55] VITALS: BP 181/70; PULSE 69
[2020-03-11] MEDS ORDERED: Acetaminophen 325 MG Tab PO ONE (17:58)
--- NOTE | 2020-03-11 18:05 | EDM.PDOC ---
ED HPI GENERAL MEDICAL PROBLEM - General Chief Complaint: Head Injury Stated Complaint: HEAD INJURY Time Seen by Provider: 03/11/20 17:49 Source of Information: Reports: Patient, RN Notes Reviewed - History of Present Illness INITIAL COMMENTS - FREE TEXT/NARRATIVE: 84 yr old female tripped outdoors a short time ago, fell face foreward onto patio type surface. Suffered abrasion injuries to forehead and nose. No known LOC. Mild frontal [place]. No nausea or vomiting. Neck, back or chest discomfort. This was called a trauma alert due to mechanism of injury, possibly on coumadin but that has not been verified. Frontal Headache Pain Score (Numeric/FACES): 9 - Related Data Allergies Allergy/AdvReac Type Severity Reaction Status Date / Time No Known Allergies Allergy Verified 03/11/20 17:55 Home Meds: Home Meds Cyanocobalamin (Vitamin B-12) [Vitamin B-12] 1,000 mcg PO DAILY 01/14/17 [Hist ory] Diltiazem [Cardizem CD] 240 mg PO DAILY 01/14/17 [History] Simvastatin [Zocor] 10 mg PO BEDTIME 01/14/17 [History] Cholecalciferol (Vitamin D3) [Vitamin D3] 5,000 units PO DAILY 10/01/18 [History ] Losartan [Cozaar] 100 mg PO DAILY 10/01/18 [History] Multivitamin [Multivitamins] 1 each PO DAILY 12/17/18 [History] Orphenadrine [Norflex] 1 tab PO Q12H PRN #20 tab.er 12/17/18 [Rx] Pantoprazole Sodium [Protonix] 40 mg PO DAILY 12/17/18 [History] Past Medical History HEENT History: Reports: Impaired Vision Other HEENT History: wears glasses Cardiovascular History: Reports: High Cholesterol, Hypertension Other Cardiovascular History: hperlipidema Respiratory History: Reports: Other (See Below) Other Respiratory History: 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 The chart indicates it was due to lung cancer, but the patient denies that she had lung cancer. She is not sure why she had lung resection surgery.) GI Surgical History: Reports: Cholecystectomy Neurological Surgical History: Reports: Lumbar Spine (fusion ) Musculoskeletal Surgical History: Reports: Knee Replacement (left), Shoulder Surgery (left, open) Social & Family History - Family History Family Medical History: Noncontributory - Caffeine Use Caffeine Use: Reports: None Other Caffeine Use: "not every day" - Living Situation & Occupation Living situation: Reports: , Alone Occupation: Retired ED ROS GENERAL - Review of Systems Review Of Systems: See Below Constitutional: Reports: No Symptoms HEENT: Reports: Other (forehead abrasion) Respiratory: Denies: Shortness of Breath Cardiovascular: Denies: Chest Pain GI/Abdominal: Denies: Abdominal Pain, Nausea, Vomiting Musculoskeletal: Denies: Neck Pain, Back Pain, Joint Pain Skin: Reports: Other (forehead abrasion) Neurological: Reports: Headache (mild, frontal). Denies: Trouble Speaking, Difficulty Walking, Weakness ED EXAM, HEAD INJURY - Physical Exam Exam: See Below General Appearance: Alert, No Apparent Distress Head: Facial Tenderness (small abrasion and mild tenderness of the nose, no deformity, no prior or current bleeding), Other (small abrasion upper mid f orehead, very mild localized swelling). No: Scalp Ecchymosis, Facial Ecchymosis Eyes: Bilateral Eye: PERRL Ears: Normal External Exam Nose: Other (small abrasion, very mild tenderness only) Throat/Mouth: Normal Inspection Neck: Non-Tender Respiratory: No Respiratory Distress, Lungs Clear Cardiovascular: Regular Rate, Rhythm Extremities: Normal Inspection, Other (upper and lower extrem nontender) Neurologic: No Motor/Sensory Deficits Skin: Warm/Dry Course - Vital Signs Last Recorded V/S: Last Vital Signs Temp 97.1 F 03/11/20 17:46 Pulse 69 03/11/20 17:46 Resp 22 H 03/11/20 17:46 BP 181/70 H 03/11/20 17:46 Pulse Ox 94 L 03/11/20 17:46 - Orders/Labs/Meds Meds: Medications Discontinued Medications Generic Name Dose Route Start Last Admin Trade Name Freq PRN Reason Stop Dose Admin Acetaminophen 650 mg 03/11/20 17:58 03/11/20 18:09 Tylenol PO 03/11/20 17:59 650 mg NOW ONE Administration Diphtheria/Tetanus/Acell Pertussis 0.5 ml 03/11/20 18:40 03/11/20 18:55 Adacel IM 03/11/20 18:41 0.5 ml .ONCE ONE Administration - Re-Assessments/Exams Free Text/Narrative Re-Assessment/Exam: 03/11/20 18:[address] looks good, still awaiting Radiology report. Departure - Departure Time of Disposition: 19:20 Disposition: Home, Self-Care 01 Condition: Fair Clinical Impression: Fall Qualifiers: Encounter type: initial encounter Qualified Code(s): W19.XXXA - Unspecified fall, initial encounter Forehead contusion Qualifiers: Encounter type: initial encounter Qualified Code(s): S00.83XA - Contusion of other part of head, initial encounter Forehead abrasion Qualifiers: Encounter type: initial encounter Qualified Code(s): S00.81XA - Abrasion of other part of head, initial encounter Contusion, nose Qualifiers: Encounter type: initial encounter Qualified Code(s): S00.33XA - Contusion of nose, initial encounter - Discharge Information Instructions: Contusion, [id number], Abrasion, [id number] Referrals: Jhoana Verdin MD [Primary Care Provider] - Forms: ED Department Discharge Additional Instructions: rest, try keep head elevated more than usual for the next 2 days. Ice packs a time or 2 tonight and again tomorrow to help keep the swelling down. Tylenol 500 mg 2 or 3 times daily if needed for pain. Protect forehead abrasion and nose abrasion with bandaids as needed. Return to ED as needed if symptoms worsening in any way. Sepsis Event Note (ED) - Evaluation Sepsis Screening Result: No Definite Risk
[2020-03-11] MEDS ORDERED: Diphtheria,Pertussis(Acell),Tetanus Vaccine 0.5 ML Syringe IM ONE (18:40)
--- NOTE | 2020-03-11 18:55 | CT ---
Head CT Technique: Multiple axial sections through the brain were obtained. Intravenous contrast was not utilized. Comparison: Prior head CT study of 01/14/17 is available. Findings: Ventricles along with basal cisterns and sulci over the convexities appear within normal limits for the patient's age. Minimal areas of diminished density are scattered within the periventricular white matter which is felt compatible with small vessel ischemic demyelination change. Similar finding is seen within the inferior left cerebellar hemisphere. No other abnormal parenchymal densities are seen. No evidence of intracranial hemorrhage. No midline shift or mass-effect is seen. Mild soft tissue swelling is seen within the frontal scalp. Bone window settings were reviewed. Visualized mastoid sinuses and paranasal sinuses show nothing acute. No acute calvarial finding is appreciated. Impression: 1. Mild senescent change as noted above. 2. Nothing acute is seen on noncontrast head CT exam. Diagnostic code #2 This report was dictated in MDT
== END 2020-03-11 19:02 | disposition home or self-care (01) ==
LOC: JD.ED 17:39
DX: S00.83XA Contusion of other part of head, initial encounter (principal); S00.33XA Contusion of nose, initial encounter; E78.5 Hyperlipidemia, unspecified; I10 Essential (primary) hypertension; K21.9 Gastro-esophageal reflux disease without esophagitis; M19.90 Unspecified osteoarthritis, unspecified site; E66.9 Obesity, unspecified; Z79.82 Long term (current) use of aspirin; Z79.899 Other long term (current) drug therapy; Z23 Encounter for immunization; W01.0XXA Fall on same level from slipping, tripping and stumbling without subsequent striking against object, initial encounter
CPT/HCPCS: 70450; 90471; 90715; 99283; A9270; 99282

== ENCOUNTER 2020-03-25 10:12 | Emergency (ER) | payer MEDICARE, OTHER ==
[2020-03-25 10:22] VITALS: BP 130/68; PULSE 65
--- NOTE | 2020-03-25 10:45 | EDM.PDOC ---
ED HPI GENERAL MEDICAL PROBLEM - General Chief Complaint: Syncope Stated Complaint: [facility] Time Seen by Provider: 03/25/20 10:28 Source of Information: Reports: Patient History Limitations: Reports: No Limitations - History of Present Illness INITIAL COMMENTS - FREE TEXT/NARRATIVE: 84-year-old female presents to the ED per [facility] after she reportedly suffered a syncopal episode in her own home this morning. She recollects everything that happened. Reports she went out to pick out some garbage that was blowing outside her home and came back into the house and then started to feel lightheaded dizzy and went down to the floor. She does not think she was out for very long or possibly not out completely at all. She was able to crawl to nearby furniture and call the neighbors for help. However they were unable to assist her up and called the ambulance for her. She states is the first time this is ever happened to her. She is unclear why she fell. She does not believe she tripped on anything. She did feel hot flushed and dizzy before she went down to the floor. Her only pain is in both groins. She has no other pain and she does not believe she hit her head but she is not sure. At present she has no nausea there is been no vomiting. She did take her medications this morning. She was in the process of eating some breakfast and had her cereal already and had only 1 bite of banana when she suffered her syncopal event. She is not known to be diabetic. Does not believe there is been any recent changes to her medications. Onset: Today, Sudden Onset Date: 03/25/20 Onset Time: 09:30 Duration: Minutes:, Other (Feels pretty well back to normal at this time.) Location: Reports: Other (Is of some discomfort in both groins.) Quality: Reports: Other (Currently having some discomfort in her groin mostly on the right side. She has not tried to weight-bear since she fell.) Severity: Mild Improves with: Reports: None Worsens with: Reports: None Context: Reports: Other (Syncopal event occurred after walking outside and coming back into her home this morning.). Denies: Activity, Exercise, Lifting, Sick Contact, Trauma Associated Symptoms: Reports: Malaise. 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 below) (None.) - Related Data Allergies Allergy/AdvReac Type Severity Reaction Status Date / Time No Known Allergies Allergy Verified 03/25/20 10:22 Home Meds: Home Meds Cyanocobalamin (Vitamin B-12) [Vitamin B-12] 1,000 mcg PO DAILY 01/14/17 [History] Diltiazem [Cardizem CD] 240 mg PO DAILY 01/14/17 [History] Simvastatin [Zocor] 10 mg PO BEDTIME 01/14/17 [History] Cholecalciferol (Vitamin D3) [Vitamin D3] 5,000 units PO DAILY 10/01/18 [History] Losartan [Cozaar] 100 mg PO DAILY 10/01/18 [History] Multivitamin [Multivitamins] 1 each PO DAILY 12/17/18 [History] Orphenadrine [Norflex] 1 tab PO Q12H PRN #20 tab.er 12/17/18 [Rx] Pantoprazole Sodium [Protonix] 40 mg PO DAILY 12/17/18 [History] Melatonin 10 mg PO BEDTIME 03/25/20 [History] [place]-3/DHA/Epa/Fish Oil [[place] 3 500 Softgel] 1 cap PO DAILY 03/25/20 [History] Past Medical History HEENT History: Reports: Impaired Vision Other HEENT History: wears glasses Cardiovascular History: Reports: High Cholesterol, Hypertension Other Cardiovascular History: hyperlipidema Respiratory History: Reports: Other (See Below) Other Respiratory History: 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 The chart indicates it was due to lung cancer, but the patient denies that she had lung cancer. She is not sure why she had lung resection surgery.) GI Surgical History: Reports: Cholecystectomy Neurological Surgical History: Reports: Lumbar Spine (fusion ) Musculoskeletal Surgical History: Reports: Knee Replacement (left), Shoulder Surgery (left, open) Social & Family History - Family History Family Medical History: Noncontributory - Caffeine Use Caffeine Use: Reports: None Other Caffeine Use: "not every day" - Living Situation & Occupation Living situation: Reports: , Alone Occupation: Retired ED ROS GENERAL - Review of Systems Review Of Systems: See Below Constitutional: Denies: Fever, Chills, Malaise, Weakness, Fatigue, Decreased Appetite, Weight Loss HEENT: Reports: Glasses Respiratory: Reports: Shortness of Breath, Cough. Denies: Wheezing, Pleuritic Chest Pain, Sputum, Hemoptysis Cardiovascular: Reports: Blood Pressure Problem, Dyspnea on Exertion, Lightheadedness (Occasionally.). Denies: Chest Pain (Occasional dry cough.), Claudication (Is on medication for hypertension.), Edema, Orthopnea, Palpitations Endocrine: Reports: Fatigue GI/Abdominal: Reports: Constipation (No problems with constipation). Denies: Decreased Appetite, Nausea, Vomiting : Reports: Frequency, Incontinence (Sho stress induced.) Musculoskeletal: Reports: Back Pain, Joint Pain (Knees hips low back neck and shoulders at times.) Skin: Reports: No Symptoms Neurological: Reports: Dizziness (Dizzy lightheaded hot and flushed this morning), Syncope (Syncopal event putting her down to the floor this morning.), Difficulty Walking (Walks usually on room volition), Weakness. Denies: Confusion Psychiatric: Reports: No Symptoms Hematologic/Lymphatic: Reports: No Symptoms Immunologic: Reports: No Symptoms - Physical Exam Exam: See Below Exam Limited By: No Limitations General Appearance: Alert, WD/WN, Anxious, Mild Distress, Other (Temperature is 36.9 heart rate was 65 and sinus respiratory was 19 sats were 92% on room air BP 130/68.) Eye Exam: Bilateral Eye: Normal Inspection (No scleral icterus or blepharal pallor.), PERRL Throat/Mouth: Normal Inspection, Normal Lips, Normal Oropharynx, Other (Tongue is mildly dry this morning) Head Exam: Other (She has a area of abrasion mid forehead at the hairline. Cannot tell if this is old or new. She is not sure if she hit her head when she fell. No other palpable scalp deformities or hematomas.) Neck: Normal Inspection, Supple, Tender Lateral. No: Carotid Bruit, Lymphadenopathy (L) (Tender bilateral aspect of the neck due to arthritic changes. Range of motion is near full.), Lymphadenopathy (R) Respiratory/Chest: No Respiratory Distress, Lungs Clear, Normal Breath Sounds, No Accessory Muscle Use, Other (Thoracotomy scar well-healed). No: Crackles, Rales, Rhonchi, Wheezing Cardiovascular: Regular Rate, Rhythm, No Edema, No Gallop, No Murmur, No Rub. No: Normal Peripheral Pulses GI/Abdominal: Normal Bowel Sounds, Soft, Non-Tender, No Organomegaly, No Mass, Pelvis Stable, Other (Is a surgical scar lower abdomen which she cannot member what it was for.). No: Guarding, Rigid, Rebound, Tender Neuro Exam (Abbreviated): Alert, Oriented, CN II-XII Intact, Normal Cognition, No Motor/Sensory Deficits, Other (To lift both legs up off the gurney and did not seem to having any increased pain in either groin with internal and external rotation of her hips.) DTR: 0: Achilles (R), Achilles (L), 1+: Bicep (R), Bicep (L), Patella (R), Patella (L) Back Exam: Other (Mild kyphosis thoracic spine. No abrasions or contusions appreciated on her upper or lower back. She has had previous low back surgery with well-healed scars in this area. Apparently she has had some form of fusion..) Extremities: No Pedal Edema, Other (He has evidence of osteoarthritic arthritic change in both knees with limited range of motion both hips suggestive of arthritic change.) Psychiatric: Normal Mood, Anxious Skin Exam: Warm, Dry, Intact, Normal Color, No Rash, Other (No abrasions contusions noted other than to her mid forehead.) EKG INTERPRETATION EKG Date: 03/25/20 Time: 10:18 Rhythm: NSR Rate (Beats/Min): 60 [place]: LAD-Left [place] Deviation (-26 degrees) P-Wave: Present (With borderline first-degree AV block) QRS: Other (Q waves leads III and aVF consider old inferior wall myocardial infarction.) ST-T: Other (T wave inversion V5 and V6 suggesting left ventricular appear to be pattern with strain.) EKG Interpretation Comments: Abnormal ECG Course - Vital Signs Last Recorded V/S: Last Vital Signs Temp 36.9 C 03/25/20 10:19 Pulse 65 03/25/20 10:19 Resp 19 03/25/20 10:19 BP 130/68 03/25/20 10:19 Pulse Ox 92 L 03/25/20 10:19 Orthostatic Blood Pressure [ 125/74 Standing] Orthostatic Blood Pressure [ 131/54 Supine] - Orders/Labs/Meds Orders: Active Orders 24 hr Category Date Time Status Blood Glucose Check, Bedside [RC] ONETIME Care 03/25/20 10:41 Active Orthostatic Vital Signs [RC] ASDIRECTED Care 03/25/20 10:40 Active Dextrose 5%-0.9% NaCl [Dextrose 5%-Normal Saline] 1,000 Med 03/25/20 11:00 Active ml IV ASDIRECTED Sodium Chloride 0.9% [Normal Saline] 500 ml Med 03/25/20 13:22 Active IV .BOLUS Sodium Chloride 0.9% [Saline Flush] Med 03/25/20 12:59 Active 10 ml FLUSH ONETIME PRN Medication Orders Dextrose/Sodium Chloride (Dextrose 5%-Normal Saline) 1,000 mls @ 150 mls/hr IV ASDIRECTED SUELLEN Last Admin: 03/25/20 11:25 Dose: 150 mls/hr Documented by: CATARINO Sodium Chloride (Normal Saline) 500 mls @ 250 mls/hr IV .BOLUS ONE Stop: 03/25/20 15:21 Last Admin: 03/25/20 13:39 Dose: 250 mls/hr Documented by: GUSTAVO Sodium Chloride (Saline Flush) 10 ml FLUSH ONETIME PRN PRN Reason: IV FLUSH Last Admin: 03/25/20 13:25 Dose: 10 ml Documented by: JESSIE Labs: Laboratory Tests 03/25/20 03/25/20 03/25/20 Range/Units 11:50 11:50 11:50 WBC 3.88 L (3.98-10.04) K/mm3 RBC 3.85 L (3.98-5.22) M/mm3 Hgb 11.1 L (11.2-15.7) gm/dl Hct 35.1 (34.1-44.9) % MCV 91.2 (79.4-94.8) fl MCH 28.8 (25.6-32.2) pg MCHC 31.6 L (32.2-35.5) g/dl RDW Std Deviation 45.1 (36.4-46.3) fL Plt Count 238 D (182-369) K/mm3 MPV 10.1 (9.4-12.3) fl Neut % (Auto) 71.6 H (34.0-71.1) % Lymph % (Auto) 16.5 L (19.3-51.7) % [place] % (Auto) 11.3 (4.7-12.5) % Eos % (Auto) 0.3 L (0.7-5.8) Baso % (Auto) 0.3 (0.1-1.2) % Neut # (Auto) 2.78 (1.56-6.13) K/mm3 Lymph # (Auto) 0.64 L (1.18-3.74) K/mm3 [place] # (Auto) 0.44 H (0.24-0.36) K/mm3 Eos # (Auto) 0.01 L (0.04-0.36) K/mm3 Baso # (Auto) 0.01 (0.01-0.08) K/mm3 PT 10.8 (9.7-11.7) SECONDS INR 1.01 APTT 27 (22-31) SECONDS D-Dimer, Quantitative (0.19-0.50) mg/L Sodium 139 (136-145) mEq/L Potassium 4.4 (3.5-5.1) mEq/L Chloride 102 (98-107) mEq/L Carbon Dioxide 28 (21-32) mEq/L Anion Gap 13.4 (5-15) BUN 22 H (7-18) mg/dL Creatinine 1.4 H (0.55-1.02) mg/dL Est Cr Clr Drug Dosing TNP Estimated GFR (MDRD) 36 (>60) mL/min BUN/Creatinine Ratio 15.7 (14-18) Glucose 120 H (83-115) mg/dL POC Glucose (83-110) mg/dL Calcium 8.8 (8.5-10.1) mg/dL Magnesium 1.9 (1.8-2.4) mg/dl Total Bilirubin 0.4 (0.2-1.0) mg/dL AST 21 (15-37) U/L ALT 19 (14-59) U/L Alkaline Phosphatase 67 (46-116) U/L CK-MB (CK-2) < 0.5 (0-3.6) ng/ml Troponin I < 0.017 (0.00-0.056) ng/mL C-Reactive Protein 2.0 H* (<1.0) mg/dL NT-Pro-B Natriuret Pep (0-450) pg/mL Total Protein 6.3 L (6.4-8.2) g/dl Albumin 3.4 (3.4-5.0) g/dl Globulin 2.9 gm/dL Albumin/Globulin Ratio 1.2 (1-2) Urine Color (Yellow) Urine Appearance (Clear) Urine pH (5.0-8.0) Ur Specific [place] (1.005-1.030) Urine Protein (Negative) Urine Glucose (UA) (Negative) Urine Ketones (Negative) Urine Occult Blood (Negative) Urine Nitrite (Negative) Urine Bilirubin (Negative) Urine Urobilinogen (0.2-1.0) Ur Leukocyte Esterase (Negative) Urine RBC (0-5) /hpf Urine WBC (0-5) /hpf Ur Epithelial Cells (0-5) /hpf Urine Bacteria (FEW) /hpf Urine Mucus (FEW) /hpf 03/25/20 03/25/20 03/25/20 Range/Units 11:50 11:50 11:51 WBC (3.98-10.04) K/mm3 RBC (3.98-5.22) M/mm3 Hgb (11.2-15.7) gm/dl Hct (34.1-44.9) % MCV (79.4-94.8) fl MCH (25.6-32.2) pg MCHC (32.2-35.5) g/dl RDW Std Deviation (36.4-46.3) fL Plt Count (182-369) K/mm3 MPV (9.4-12.3) fl Neut % (Auto) (34.0-71.1) % Lymph % (Auto) (19.3-51.7) % [place] % (Auto) (4.7-12.5) % Eos % (Auto) (0.7-5.8) Baso % (Auto) (0.1-1.2) % Neut # (Auto) (1.56-6.13) K/mm3 Lymph # (Auto) (1.18-3.74) K/mm3 [place] # (Auto) (0.24-0.36) K/mm3 Eos # (Auto) (0.04-0.36) K/mm3 Baso # (Auto) (0.01-0.08) K/mm3 PT (9.7-11.7) SECONDS INR APTT (22-31) SECONDS D-Dimer, Quantitative 1.52 H (0.19-0.50) mg/L Sodium (136-145) mEq/L Potassium (3.5-5.1) mEq/L Chloride (98-107) mEq/L Carbon Dioxide (21-32) mEq/L Anion Gap (5-15) BUN (7-18) mg/dL Creatinine (0.55-1.02) mg/dL Est Cr Clr Drug Dosing Estimated GFR (MDRD) (>60) mL/min BUN/Creatinine Ratio (14-18) Glucose (83-115) mg/dL POC Glucose 109 (83-110) mg/dL Calcium (8.5-10.1) mg/dL Magnesium (1.8-2.4) mg/dl Total Bilirubin (0.2-1.0) mg/dL AST (15-37) U/L ALT (14-59) U/L Alkaline Phosphatase (46-116) U/L CK-MB (CK-2) (0-3.6) ng/ml Troponin I (0.00-0.056) ng/mL C-Reactive Protein (<1.0) mg/dL NT-Pro-B Natriuret Pep 551 H (0-450) pg/mL Total Protein (6.4-8.2) g/dl Albumin (3.4-5.0) g/dl Globulin gm/dL Albumin/Globulin Ratio (1-2) Urine Color (Yellow) Urine Appearance (Clear) Urine pH (5.0-8.0) Ur Specific [place] (1.005-1.030) Urine Protein (Negative) Urine Glucose (UA) (Negative) Urine Ketones (Negative) Urine Occult Blood (Negative) Urine Nitrite (Negative) Urine Bilirubin (Negative) Urine Urobilinogen (0.2-1.0) Ur Leukocyte Esterase (Negative) Urine RBC (0-5) /hpf Urine WBC (0-5) /hpf Ur Epithelial Cells (0-5) /hpf Urine Bacteria (FEW) /hpf Urine Mucus (FEW) /hpf 03/25/20 Range/Units 13:10 WBC (3.98-10.04) K/mm3 RBC (3.98-5.22) M/mm3 Hgb (11.2-15.7) gm/dl Hct (34.1-44.9) % MCV (79.4-94.8) fl MCH (25.6-32.2) pg MCHC (32.2-35.5) g/dl RDW Std Deviation (36.4-46.3) fL Plt Count (182-369) K/mm3 MPV (9.4-12.3) fl Neut % (Auto) (34.0-71.1) % Lymph % (Auto) (19.3-51.7) % [place] % (Auto) (4.7-12.5) % Eos % (Auto) (0.7-5.8) Baso % (Auto) (0.1-1.2) % Neut # (Auto) (1.56-6.13) K/mm3 Lymph # (Auto) (1.18-3.74) K/mm3 [place] # (Auto) (0.24-0.36) K/mm3 Eos # (Auto) (0.04-0.36) K/mm3 Baso # (Auto) (0.01-0.08) K/mm3 PT (9.7-11.7) SECONDS INR APTT (22-31) SECONDS D-Dimer, Quantitative (0.19-0.50) mg/L Sodium (136-145) mEq/L Potassium (3.5-5.1) mEq/L Chloride (98-107) mEq/L Carbon Dioxide (21-32) mEq/L Anion Gap (5-15) BUN (7-18) mg/dL Creatinine (0.55-1.02) mg/dL Est Cr Clr Drug Dosing Estimated GFR (MDRD) (>60) mL/min BUN/Creatinine Ratio (14-18) Glucose (83-115) mg/dL POC Glucose (83-110) mg/dL Calcium (8.5-10.1) mg/dL Magnesium (1.8-2.4) mg/dl Total Bilirubin (0.2-1.0) mg/dL AST (15-37) U/L ALT (14-59) U/L Alkaline Phosphatase (46-116) U/L CK-MB (CK-2) (0-3.6) ng/ml Troponin I (0.00-0.056) ng/mL C-Reactive Protein (<1.0) mg/dL NT-Pro-B Natriuret Pep (0-450) pg/mL Total Protein (6.4-8.2) g/dl Albumin (3.4-5.0) g/dl Globulin gm/dL Albumin/Globulin Ratio (1-2) Urine Color Yellow (Yellow) Urine Appearance Clear (Clear) Urine pH 7.0 (5.0-8.0) Ur Specific [place] 1.020 (1.005-1.030) Urine Protein Negative (Negative) Urine Glucose (UA) Negative (Negative) Urine Ketones Negative (Negative) Urine Occult Blood Negative (Negative) Urine Nitrite Negative (Negative) Urine Bilirubin Negative (Negative) Urine Urobilinogen 0.2 (0.2-1.0) Ur Leukocyte Esterase Negative (Negative) Urine RBC 0-5 (0-5) /hpf Urine WBC 0-5 (0-5) /hpf Ur Epithelial Cells 0-5 (0-5) /hpf Urine Bacteria Few (FEW) /hpf Urine Mucus Not seen (FEW) /hpf Meds: Medications Generic Name Dose Route Start Last Admin Trade Name Freq PRN Reason Stop Dose Admin Dextrose/Sodium Chloride 1,000 mls @ 150 mls/hr 03/25/20 11:00 03/25/20 11:25 Dextrose 5%-Normal Saline IV 150 mls/hr ASDIRECTED SUELLEN Administration Sodium Chloride 500 mls @ 250 mls/hr 03/25/20 13:22 03/25/20 13:39 Normal Saline IV 03/25/20 15:21 250 mls/hr .BOLUS ONE Administration Sodium Chloride 10 ml 03/25/20 12:59 03/25/20 13:25 Saline Flush FLUSH 10 ml ONETIME PRN Administration IV FLUSH Discontinued Medications Generic Name Dose Route Start Last Admin Trade Name Jack PRN Reason Stop Dose Admin Furosemide 40 mg 03/25/20 13:23 03/25/20 13:40 Lasix IVPUSH 03/25/20 13:24 40 mg NOW ONE Administration Sodium Chloride 100 mls @ 75 mls/hr 03/25/20 13:15 03/25/20 13:25 Normal Saline IV 75 mls/hr ASDIRECTED SUELLEN Administration Iopamidol 100 ml 03/25/20 12:59 03/25/20 13:25 [id number] (76%) IVPUSH 03/25/20 13:00 100 ml ONETIME ONE Administration - Radiology Interpretation Free Text/Narrative:: 84-year-old female presents to the ED after suffering a syncopal event at home this morning. She has full recollection of everything that happened and I therefore I do not think she lost consciousness completely more near syncope event. She reports going outside to diamond picker some garbage at the wind was blowing around and then came back into her home. She started to feel lightheaded dizzy and flushed and then went down to the floor suddenly. She had to crawl to the nearby furniture to call the neighbors for help. She has not yet eaten her breakfast this morning. She had taken her medication about an hour and a half prior to her syncopal event. 1 of the medications is cardiazem which could lower her blood pressure precipitously. She is complaining of some pain in the groin but clinically does not appear to have any fractured hip. An x-ray will be obtained of the pelvis to make sure there is no pelvic fractures. She has a abrasion to the mid upper forehead that appears to be somewhat chronic but I cannot she is not sure if she hit her head when she fell. No apparent injuries to the hands wrists or elbows. No injuries to the chest wall ribs or back. Plan IV will be D5 normal saline at [address] head will be obtained chest x-ray to be obtained that she is missing 1 lung from cancer of the lung in the past. Noncontinuous ECG monitoring while in the department. - Re-Assessments/Exams Free Text/Narrative Re-Assessment/Exam: 03/25/20 11:27 CT of the head has been completed. It reveals age-appropriate degenerative changes with prominence of the sulci throughout. There is diffuse small vessel ischemic change in both basal ganglia. No infarcts are identified. No skull fractures are identified and no intracranial bleeding is identified. X-ray of the pelvis 1 view i.e. AP review shows hips and pelvis to be intact. She has some mer in the left lower pelvis suggestive of previous gynecological surgery. She has bolts fusing lumbar 1 and S1 vertebra in her lower back. No fractures in the pelvis or hips are identified. 03/25/20 12:12 White count is low at 3.88. Differential is 71.6% neutrophils on the auto differential. Hemoglobin is low at 11.1 with hematocrit of 35.1. MCV is 91.2. Platelet count is 238,000. Bedside blood glucose was 119. 03/25/20 12:51 D-dimer is elevated at 1.52. Chemistry shows a sodium of 139 a potassium of 4.4 chloride 102 with a bicarb of 28. Anion gap is 13.4. BUN is 22 with a creatinine of 1.4G . GFR is 36 ie. stage III renal insufficiency glucose 120 calcium 8.8 magnesium 1.9 total bilirubin and liver function is normal. Troponin I is less than 0.017. C-reactive protein is 2.0 BNP is elevated at 551. Total protein is 6.3 with an albumin fraction of 3.4. She will have CT pulmonary angiogram in spite of her poor renal function to rule out PE. 03/25/20 13:24 Patient will be given a 250 mil normal saline fluid bolus and Lasix 40 mg IV when she returns from CT pulmonary angiogram. 03/25/20 14:44 Urinalysis returned and is negative for infection. CT pulmonary angiogram reveals an equivocal small pulmonary embolism within a right subsegmental lower lobe branch. It is the suggestion of the radiologist to consider bilateral lower extremity venous Doppler exam and if no acute clot is seen on studies my personal opinion would be that pulmonary most of is too small to warrant and quit anticoagulation. I am in agreement with this approach as the reason that the CT was done because she has an elevated d-dimer and she suffered a syncopal episode this morning. There is no way this clot was large enough to cause a syncopal event. Will be discharged home at this point time with no positive findings. Possibility of her medications kicking in at the right time to cause orthostatic hypotension with a syncopal event. However she has been monitored for 4 hours on the auto body painter and has not shown any forms of arrhythmia. She will be discharged to home with no changes made to her medications at this point time. I think that she developed orthostatic hypotension Departure - Departure Time of Disposition: 15:09 Disposition: Home, Self-Care 01 Condition: Fair Clinical Impression: Syncope and collapse - Discharge Information *PRESCRIPTION DRUG MONITORING PROGRAM REVIEWED*: Not Applicable *COPY OF PRESCRIPTION DRUG MONITORING REPORT IN PATIENT GE: Not Applicable Referrals: Jhoana Verdin MD [Primary Care Provider] - Forms: ED Department Discharge Additional Instructions: Evaluation in the emergency room today in regards to a syncopal event which is a fainting spell that occurred in your home this morning. As you indicated you remember getting hot flushed and dizzy and lightheaded and then going down to the floor. No specific injuries were identified but you could not remember if you did hit your head and you were complaining of some pain in the right groin on exam. No other injuries were identified on exam. CT of the brain was done and reveals age-appropriate degenerative changes with no signs of any intracranial bleeding or stroke to cause her to loss consciousness. X-rays of the pelvis were done and they do not reveal any broken bones or problems with her hips they do reveal large bolts due to spinal fusion of lumbar 5 and S1 vertebra in your back. Lab tests revealed no problems related to your heart. You were monitored on the auto body painter for over 4 hours while in the ED and no arrhythmias occurred. I suspect the cause of the syncopal event was due to a sudden drop in your blood pressure as you have not been able to eat yet this morning but had taken your blood pressure pills an hour before this event occurred which would have given him time to kick in. Particularly the Cardizem or diltiazem tablet you take does work quickly to lower blood pressure. Therefore at this time no changes are to be made with your medications although I would make sure you take your blood pressure medications closer to a meal to prevent any similar occurrences. If any similar symptoms is like this occur again return to the ED. Sepsis Event Note (ED) - Evaluation Sepsis Screening Result: No Definite Risk - Focused Exam Vital Signs: Vital Signs Temp Pulse Resp BP Pulse Ox 03/25/20 10:19 36.9 C 65 19 130/68 92 L - My Orders Last 24 Hours: My Active Orders 03/25/20 10:40 Orthostatic Vital Signs [RC] ASDIRECTED 03/25/20 10:41 Blood Glucose Check, Bedside [RC] ONETIME 03/25/20 11:00 Dextrose 5%-0.9% NaCl [Dextrose 5%-Normal Saline] 1,000 ml IV ASDIRECTED 03/25/20 12:59 Sodium Chloride 0.9% [Saline Flush] 10 ml FLUSH ONETIME PRN 03/25/20 13:22 Sodium Chloride 0.9% [Normal Saline] 500 ml IV .BOLUS - Assessment/Plan Last 24 Hours: My Active Orders 03/25/20 10:40 Orthostatic Vital Signs [RC] ASDIRECTED 03/25/20 10:41 Blood Glucose Check, Bedside [RC] ONETIME 03/25/20 11:00 Dextrose 5%-0.9% NaCl [Dextrose 5%-Normal Saline] 1,000 ml IV ASDIRECTED 03/25/20 12:59 Sodium Chloride 0.9% [Saline Flush] 10 ml FLUSH ONETIME PRN 03/25/20 13:22 Sodium Chloride 0.9% [Normal Saline] 500 ml IV .BOLUS
[2020-03-25] MEDS ORDERED: Dextrose 5%-0.9% NaCl 1,000 ML IV SCH (11:00)
--- NOTE | 2020-03-25 11:51 | CT ---
Head CT Technique: Multiple axial sections through the brain were obtained. Intravenous contrast not utilized. Comparison: Prior head CT study of 03/11/20. Findings: Ventricles along with basal cisterns and sulci over the convexities appear within normal limits for the patient's age. Mild areas of diminished density are noted within the periventricular and subcortical white matter which is compatible with small vessel ischemic demyelination change. No evidence of intracranial hemorrhage. No midline shift or mass effect is appreciated. Mild atherosclerotic calcification is seen within the carotid siphon. Bone window settings were reviewed which show the visualized mastoid sinuses to appear clear. Mild areas of mucosal thickening which are most likely chronic seen within the ethmoid sinuses. No acute calvarial finding is seen. Impression: 1. Probable mild chronic sinusitis within the ethmoid sinuses. 2. Senescent change as noted above. 3. No acute intracranial abnormality is appreciated. Diagnostic code #2 This report was dictated in MDT
[2020-03-25] MEDS ORDERED: Iopamidol 755 Mg/ML 100 ML Bottle IVPUSH ONE (12:59)
[2020-03-25] MEDS ORDERED: Iohexol 350 MG/ML 75 ML Bottle IVPUSH ONE (12:59)
[2020-03-25] MEDS ORDERED: Sodium Chloride 0.9% 10 ML Syringe FLUSH PRN (12:59)
[2020-03-25] MEDS ORDERED: Sodium Chloride 0.9% 100 ML IV SCH (13:15)
[2020-03-25] MEDS ORDERED: Sodium Chloride 0.9% 500 ML IV ONE (13:22)
[2020-03-25] MEDS ORDERED: Furosemide 40 MG/4 ML VIAL IVPUSH ONE (13:23)
--- NOTE | 2020-03-25 14:32 | CR ---
Pelvis: AP view of the pelvis was obtained. Pelvis: AP view of the pelvis was obtained. Comparison: Prior pelvis and left hip study of 12/30/18. Orthopedic hardware is noted within the sacrum. Surgical clips are seen within the left groin and overlying the sacrum. Bony structures are osteopenic. Vascular calcification is noted. Joint spaces are fairly well-preserved within both hips. Mild degenerative change within the pubic symphysis is noted. No acute finding is appreciated. Impression: 1. Findings as noted above. 2. Nothing acute is appreciated. Diagnostic code #2 Study was dictated in MDT
--- NOTE | 2020-03-25 14:36 | CT ---
CT chest Technique: Multiple axial sections through the chest were obtained. Intravenous contrast was utilized. Equivocal filling defect within a subsegmental right lower lobe pulmonary artery is noted. Very minimal pulmonary embolism is possible. No additional pulmonary emboli are appreciated. Aorta shows no aneurysm. Mild coronary artery calcification is seen. Heart size is slightly enlarged. Visualized upper abdominal structures shows nothing acute. Previous cholecystectomy is noted. Visualized lungs are clear. No acute parenchymal change is appreciated. Impression: 1. Equivocal small pulmonary embolism within a right subsegmental lower lobe branch. Consider bilateral lower extremity venous exam and if no acute clot is seen on this study, my personal opinion is that this pulmonary embolism is too small to warrant anticoagulation. 2. No other acute abnormality is appreciated on CT study of the chest. Diagnostic code #3 Study was dictated in MDT
== END 2020-03-25 15:47 | disposition home or self-care (01) ==
LOC: JD.ED 10:12
DX: R55 Syncope and collapse (principal); E78.5 Hyperlipidemia, unspecified; I10 Essential (primary) hypertension; K21.9 Gastro-esophageal reflux disease without esophagitis; E66.9 Obesity, unspecified; Z79.899 Other long term (current) drug therapy
CPT/HCPCS: 36415; 70450; 71275; 72170; 80053; 81001; 82553; 82962; 83735; 83880; 84484; 85025; 85379; 85610; 85730; 86140; 96361; 96374; 99285; J1940; J7030; J7042; J7050; Q9967; 93010; 99284

== ENCOUNTER 2020-10-02 10:18 | Emergency (ER) | payer MEDICARE, OTHER ==
[2020-10-02 10:34] VITALS: PULSE 62
--- NOTE | 2020-10-02 12:07 | EDM.PDOC ---
ED HPI GENERAL MEDICAL PROBLEM - General Chief Complaint: Upper Extremity Injury/Pain Stated Complaint: LEFT ARM INJURY Time Seen by Provider: 10/02/20 10:38 Source of Information: Reports: Patient History Limitations: Reports: No Limitations - History of Present Illness INITIAL COMMENTS - FREE TEXT/NARRATIVE: The patient presents with left shoulder pain. She fell a couple days ago. She did not hit her head and has no neck pain. She does have pain to the front of her left shoulder. Initially the pain was not that bad but it has gotten worse. She has limited range of motion due to pain. She has no headache, neck pain, chest pain or abdominal pain. She has no pain in her hips or legs. Onset: Sudden Duration: Day(s): (2) Quality: Reports: Sharp Severity: Moderate Improves with: Reports: Immobilization Worsens with: Reports: Movement Context: Reports: Trauma (fall) Associated Symptoms: Reports: No Other Symptoms Left Shoulder Pain Score (Numeric/FACES): 8 - Related Data Allergies Allergy/AdvReac Type Severity Reaction Status Date / Time No Known Allergies Allergy Verified 10/02/20 10:34 Home Meds: Home Meds Cyanocobalamin (Vitamin B-12) [Vitamin B-12] 1,000 mcg PO DAILY 01/14/17 [History] Diltiazem [Cardizem CD] 240 mg PO DAILY 01/14/17 [History] Simvastatin [Zocor] 10 mg PO BEDTIME 01/14/17 [History] Cholecalciferol (Vitamin D3) [Vitamin D3] 5,000 units PO DAILY 10/01/18 [History] Losartan [Cozaar] 100 mg PO DAILY 10/01/18 [History] Multivitamin [Multivitamins] 1 each PO DAILY 12/17/18 [History] Orphenadrine [Norflex] 1 tab PO Q12H PRN #20 tab.er 12/17/18 [Rx] Pantoprazole Sodium [Protonix] 40 mg PO DAILY 12/17/18 [History] Melatonin 10 mg PO BEDTIME 03/25/20 [History] Rodman-3/DHA/Epa/Fish Oil [Rodman 3 500 Softgel] 1 cap PO DAILY 03/25/20 [History] Past Medical History HEENT History: Reports: Impaired Vision Other HEENT History: wears glasses Cardiovascular History: Reports: High Cholesterol, Hypertension Other Cardiovascular History: hyperlipidema Respiratory History: Reports: Other (See Below) Other Respiratory History: 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: Musculoskeletal History: Reports: Back Pain, Chronic, Osteoarthritis, Osteoporosis Other Musculoskeletal History: pins and rods in low back Psychiatric History: Reports: Anxiety, Depression Endocrine/Metabolic History: Reports: Obesity/BMI 30+, Other (See Below) (Vitamin B12 deficiency.) Oncologic (Cancer) History: Reports: Lung - Infectious Disease History Infectious Disease History: Reports: Influenza - Past Surgical History Respiratory Surgical History: Reports: Lung Resection GI Surgical History: Reports: Cholecystectomy Neurological Surgical History: Reports: Lumbar Spine Musculoskeletal Surgical History: Reports: Knee Replacement Social & Family History - Family History Family Medical History: No Pertinent Family History - Tobacco Use Tobacco Use Status *Q: Never Tobacco User Second Hand Smoke Exposure: No - Caffeine Use Caffeine Use: Reports: Coffee Other Caffeine Use: "not every day" - Recreational Drug Use Recreational Drug Use: No - Living Situation & Occupation Living situation: Reports: , Alone Occupation: Retired Review of Systems - Review of Systems Review Of Systems: See Below Constitutional: Reports: No Symptoms Eyes: Reports: No Symptoms Ears: Reports: No Symptoms Nose: Reports: No Symptoms Mouth/Throat: Reports: No Symptoms Respiratory: Reports: No Symptoms Cardiovascular: Reports: No Symptoms GI/Abdominal: Reports: No Symptoms Musculoskeletal: Reports: Other (Left shoulde pain) ED EXAM, GENERAL - Physical Exam Exam: See Below Exam Limited By: No Limitations General Appearance: Alert, No Apparent Distress Ears: Normal External Exam Nose: Normal Inspection Head: Atraumatic, Normocephalic Neck: Normal Inspection Respiratory/Chest: No Respiratory Distress, Lungs Clear, Normal Breath Sounds Cardiovascular: Regular Rate, Rhythm, No Edema, No Murmur GI/Abdominal: Soft, Non-Tender, No Organomegaly, No Mass Extremities: Other (Pain upon palpation to the left anterior shoulder. Good sensation and pulses distally.) Course - Vital Signs Last Recorded V/S: Last Vital Signs Temp 97.7 F 10/02/20 10:31 Pulse 62 10/02/20 10:31 Resp 12 10/02/20 10:31 BP 157/57 H 10/02/20 10:31 Pulse Ox 96 10/02/20 10:31 - Orders/Labs/Meds Orders: Active Orders 24 hr Category Date Time Status Humerus Lt [CR] Stat Exams 10/02/20 10:52 Taken - Re-Assessments/Exams Free Text/Narrative Re-Assessment/Exam: 10/02/20 12:03 I ordered an x-ray of her left shoulder and there is some mild degenerative changes but nothing acute. I will get her in a sling and refer her to Dr Doan and PT. Departure - Departure Time of Disposition: 12:05 Disposition: Home, Self-Care 01 Condition: Good Clinical Impression: Fall Qualifiers: Encounter type: initial encounter Qualified Code(s): W19.XXXA - Unspecified fall, initial encounter Sprain of left shoulder Qualifiers: Encounter type: initial encounter Shoulder sprain type: unspecified sprain Qualified Code(s): S43.402A - Unspecified sprain of left shoulder joint, initial encounter - Discharge Information *PRESCRIPTION DRUG MONITORING PROGRAM REVIEWED*: Not Applicable *COPY OF PRESCRIPTION DRUG MONITORING REPORT IN PATIENT GE: Not Applicable Referrals: Jhoana Verdin MD [Primary Care Provider] - Maged Doan MD [Physician] - 1 Week Additional Instructions: Ice your shoulder for 15 minutes 3 times per day for 2 days. Take tylenol or motrin as needed for pain. Where the sling to restrict motion and reduce further injury. Take it off 3 times per day and try to move your shoulder to avoid frozen shoulder. Follow up with physical therapy and Dr Doan. Please return if you are worse. Sepsis Event Note (ED) - Evaluation Sepsis Screening Result: No Definite Risk - Focused Exam Vital Signs: Vital Signs Temp Pulse Resp BP Pulse Ox 10/02/20 10:31 97.7 F 62 12 157/57 H 96 - My Orders Last 24 Hours: My Active Orders 10/02/20 10:52 Humerus Lt [CR] Stat - Assessment/Plan Last 24 Hours: My Active Orders 10/02/20 10:52 Humerus Lt [CR] Stat
[2020-10-02 12:18] VITALS: BP 126/84
--- NOTE | 2020-10-02 12:27 | CR ---
Left humerus: 2 views of the left humerus were obtained. Comparison: No prior humerus study is available. Cystic change is seen within the anatomic neck of the humerus which is benign. Degenerative change is noted within the acromioclavicular joint with superior spurring. Calcification is seen above the humeral head compatible with rotator cuff calcification. Osteopenia is noted. No acute fracture or other abnormality is appreciated. Impression: 1. Shoulder findings as noted above. 2. Nothing acute is seen on left humerus exam. Diagnostic code #2
== END 2020-10-02 12:28 | disposition home or self-care (01) ==
LOC: JD.ED 10:18
DX: S43.402A Unspecified sprain of left shoulder joint, initial encounter (principal); E78.5 Hyperlipidemia, unspecified; I10 Essential (primary) hypertension; K21.9 Gastro-esophageal reflux disease without esophagitis; E66.9 Obesity, unspecified; Z68.29 Body mass index [BMI] 29.0-29.9, adult; Z79.899 Other long term (current) drug therapy; W19.XXXA Unspecified fall, initial encounter
CPT/HCPCS: 73060-26-LT; 73060-LT; 99283; 99283-25

== ENCOUNTER 2020-10-08 21:04 | Emergency (ER) | payer MEDICARE, OTHER ==
--- NOTE | 2020-10-08 21:18 | EDM.PDOC ---
ED HPI GENERAL MEDICAL PROBLEM - General Chief Complaint: Head Injury Stated Complaint: HEAD INJURY Time Seen by Provider: 10/08/20 21:17 - History of Present Illness INITIAL COMMENTS - FREE TEXT/NARRATIVE: 85-year-old female presents the emergency room after tripping and falling in the garage. Patient tripped over a step fell into the garage landing on her left side she did hit her head has a large goose egg over her left lateral forehead with a small laceration. There was no loss of consciousness no nausea no vomiting. Patient denies any other obvious injury with this most unfortunate event. However she does have some back pain some of this is chronic. She has not noticed any numbness or weakness or other complaints. Her tetanus is up-to-date per our records. - Related Data Allergies Allergy/AdvReac Type Severity Reaction Status Date / Time No Known Allergies Allergy Verified 10/08/20 21:14 Home Meds: Home Meds Cyanocobalamin (Vitamin B-12) [Vitamin B-12] 1,000 mcg PO DAILY 01/14/17 [History] Simvastatin [Zocor] 10 mg PO BEDTIME 01/14/17 [History] Cholecalciferol (Vitamin D3) [Vitamin D3] 2,000 units PO DAILY 10/01/18 [History ] Losartan [Cozaar] 100 mg PO DAILY 10/01/18 [History] Pantoprazole Sodium [Protonix] 40 mg PO DAILY 12/17/18 [History] Melatonin 5 mg PO BEDTIME 03/25/20 [History] Crump-3/DHA/Epa/Fish Oil [Crump 3 500 Softgel] 1 cap PO DAILY 03/25/20 [History] Acetaminophen [Tylenol Arthritis] 650 mg PO BID PRN 10/08/20 [History] dilTIAZem HCL [Cartia Xt] 240 mg PO BEDTIME 10/08/20 [History] traMADol HCl [Tramadol HCl] 50 mg PO BEDTIME PRN 10/08/20 [History] Past Medical History HEENT History: Reports: Impaired Vision Other HEENT History: wears glasses Cardiovascular History: Reports: High Cholesterol, Hypertension Other Cardiovascular History: hyperlipidema Respiratory History: Reports: Other (See Below) Other Respiratory History: 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: Musculoskeletal History: Reports: Back Pain, Chronic, Osteoarthritis, Osteoporosis Other Musculoskeletal History: pins and rods in low back Psychiatric History: Reports: Anxiety, Depression Endocrine/Metabolic History: Reports: Obesity/BMI 30+, Other (See Below) Oncologic (Cancer) History: Reports: Lung - Infectious Disease History Infectious Disease History: Reports: Influenza - Past Surgical History Respiratory Surgical History: Reports: Lung Resection GI Surgical History: Reports: Cholecystectomy Neurological Surgical History: Reports: Lumbar Spine Musculoskeletal Surgical History: Reports: Knee Replacement Social & Family History - Family History Family Medical History: No Pertinent Family History - Tobacco Use Tobacco Use Status *Q: Never Tobacco User - Caffeine Use Caffeine Use: Reports: Coffee Other Caffeine Use: "not every day" - Recreational Drug Use Recreational Drug Use: No - Living Situation & Occupation Living situation: Reports: , Alone Occupation: Retired ED ROS GENERAL - Review of Systems Review Of Systems: See Below Constitutional: Reports: No Symptoms. Denies: Fever, Chills HEENT: Reports: No Symptoms Respiratory: Reports: No Symptoms Cardiovascular: Reports: No Symptoms Endocrine: Reports: No Symptoms GI/Abdominal: Reports: No Symptoms : Reports: No Symptoms Musculoskeletal: Reports: Back Pain Skin: Reports: No Symptoms Neurological: Reports: Confusion (She has some baseline dementia), Headache. Denies: Dizziness Psychiatric: Reports: No Symptoms Hematologic/Lymphatic: Reports: No Symptoms Immunologic: Reports: No Symptoms ED EXAM, HEAD INJURY - Physical Exam Exam: See Below Exam Limited By: No Limitations General Appearance: Alert, No Apparent Distress Head: Other (He has some swelling and ecchymosis developing on the left lateral forehead she is got a small laceration approximately 1.3 cm) Eyes: Bilateral Eye: EOMI, Normal Inspection, PERRL Ears: Normal External Exam, Normal Canal, Hearing Grossly Normal, Normal TMs Nose: Normal Inspection, Normal Mucousa, No Blood Throat/Mouth: Normal Inspection, Normal Lips, Normal Gums, Normal Oropharynx, Normal Voice, No Airway Compromise. No: Normal Teeth (Her upper dentures are not in lowers are in place) Neck: Non-Tender, Normal Alignment Respiratory: No Respiratory Distress, Lungs Clear, Normal Breath Sounds Cardiovascular: Regular Rate, Rhythm, No Edema, No Murmur GI/Abdominal Exam: Normal Bowel Sounds, Soft, Non-Tender Back Exam: Other (It is hard to sort out what is going on with her back pain she has upper thoracic discomfort with palpation along the bony prominences as well as the lumbar spine.) Extremities: Normal Inspection, Normal Range of Motion, Non-Tender Neurologic: Other (According to the patient's daughter she is at baseline) Skin: Other (Ecchymosis and swelling over left lateral forehead) - [place] Coma Score Best Eye Response ([place]): (4) Open Spontaneously Best Verbal Response ([place]): (5) Oriented (She is oriented to baseline answers questions appropriately) Best Motor Response ([place]): (6) Obeys Commands ED LACERATION/WOUND & VIVIEN PROC - Laceration/Wound Repair Face Lac/wound length in cm: 1.3 Appearance: Subcutaneous, Irregular, Clean Anesthetic Type: Local Local Anesthesia - Lidocaine (Xylocaine): 1% Plain Local Anesthetic Volume: 1cc Skin Prep: Saline Exploration/Debridement/Repair: Wound Explored, In a Bloodless Field, Explored to Base Closed with: Sutures Suture Size: 4-0 # of Sutures: 3 Suture Type: Nylon Drain Placement: No Sterile Dressing Applied: None Tetanus Status Addressed: Other (This is up-to-date) Complications: No Course - Vital Signs Last Recorded V/S: Last Vital Signs Temp 36.1 C 10/08/20 21:11 Pulse 77 10/08/20 21:15 Resp 20 10/08/20 21:15 BP 185/80 H 10/08/20 21:15 Pulse Ox 92 L 10/08/20 21:15 - Orders/Labs/Meds Orders: Active Orders 24 hr Category Date Time Status C Collar Applied [Spinal Immobilization] [RC] Care 10/08/20 21:27 Active ASDIRECTED Cervical Spine wo Cont [CT] Stat Exams 10/08/20 21:25 Taken Head wo Cont [CT] Stat Exams 10/08/20 21:25 Taken Lumbar Spine wo Cont [CT] Stat Exams 10/08/20 21:25 Taken Thoracic Spine wo Cont [CT] Stat Exams 10/08/20 21:25 Taken Meds: Medications Discontinued Medications Generic Name Dose Route Start Last Admin Trade Name Freq PRN Reason Stop Dose Admin Lidocaine HCl 10 ml 10/08/20 22:28 Lidocaine 1% 10 Ml Mdv INJECT 10/08/20 22:29 ONETIME ONE - Re-Assessments/Exams Free Text/Narrative Re-Assessment/Exam: 10/08/20 23:08 CT evaluation of the head C-spine T-spine and L-spine are negative for acute fracture dislocation she is got fixation device between L1 and L5 this causes extensive artifact. She is got diffuse degenerative changes throughout. Incidentally diverticulosis is noted. Patient tolerated primary repair pair of the 1.3 cm laceration on her left forehead. Departure - Departure Time of Disposition: 23:11 Disposition: Home, Self-Care 01 Clinical Impression: Head injury due to trauma - Discharge Information Referrals: Jhoana Verdin MD [Primary Care Provider] - Forms: ED Department Discharge Additional Instructions: Return to the emergency room with any questions problems or worsening symptoms. Follow-up with your regular physician on Wednesday for recheck if needed. Otherwise follow-up in 7 or 8 days for suture removal. Tylenol as needed for discomfort. Sepsis Event Note (ED) - Evaluation Sepsis Screening Result: No Definite Risk - Focused Exam Vital Signs: Vital Signs Temp Pulse Resp BP Pulse Ox 10/08/20 21:15 77 20 185/80 H 92 L 10/08/20 21:11 36.1 C 76 16 194/179 H 97 - My Orders Last 24 Hours: My Active Orders 10/08/20 21:25 Cervical Spine wo Cont [CT] Stat Head wo Cont [CT] Stat Lumbar Spine wo Cont [CT] Stat Thoracic Spine wo Cont [CT] Stat 10/08/20 21:27 C Collar Applied [Spinal Immobilization] [RC] ASDIRECTED - Assessment/Plan Last 24 Hours: My Active Orders 10/08/20 21:25 Cervical Spine wo Cont [CT] Stat Head wo Cont [CT] Stat Lumbar Spine wo Cont [CT] Stat Thoracic Spine wo Cont [CT] Stat 10/08/20 21:27 C Collar Applied [Spinal Immobilization] [RC] ASDIRECTED
[2020-10-08] MEDS ORDERED: Lidocaine 1% 10 ML MDV INJECT ONE (22:28)
[2020-10-08 23:29] VITALS: BP 187/97; PULSE 76
--- NOTE | 2020-10-09 08:26 | CT ---
CT cervical spine Technique: Multiple axial sections were obtained from above C1 inferiorly through the C2-3 disc. Reconstructed coronal and sagittal images were obtained. Comparison: No prior cervical spine imaging is available. Findings: Diffuse disc space narrowing is seen throughout the cervical spine. Disc space narrowing is most severe at C5-6 and C6-7. Scattered anterior osteophytes are seen as well as mild diffuse posterior osteophytes. Mild degenerative change is scattered within the apophyseal joints. Cysts are noted within the dens of C2 which are felt to be degenerative. Joint space narrowing is noted between the dens and anterior arch of C1. Moderate narrowing is noted within the C3-4 neural foramen on the left side. Moderate narrowing is noted at C4-5 on the left side. Right neural foramen shows mild narrowing. C5-6 level shows mild bilateral neural foraminal narrowing. C6-7 level is fairly well patent. C7-T1 level is patent. Visualized upper thoracic spine appears to be patent. No fracture is appreciated. No abnormal subluxation is appreciated. Scattered degenerative change is seen throughout the apophyseal joints. Ligamentum nuchal calcification is noted. Impression: 1. Diffuse degenerative change as noted above. 2. No acute fracture or abnormal subluxation is seen. Diagnostic code #2 I agree with preliminary report from [facility], finalized on 10/08/20, 11:35 PM CDT
--- NOTE | 2020-10-09 08:28 | CT ---
Head CT Technique: Multiple axial sections through the brain were obtained. Intravenous contrast was not utilized. Reconstructed coronal and sagittal images were obtained. Comparison: Prior head CT study of 03/25/20. Findings: Soft tissue swelling and hematoma are seen within the left frontal scalp. Ventricles along with basal cisterns and sulci over the convexities appear within normal limits for the patient's age. Diffuse diminished density is seen within the periventricular and subcortical white matter which is believed to represent small vessel ischemic demyelination change. No other abnormal parenchymal densities are seen. No evidence of intracranial hemorrhage. No midline shift or mass-effect is seen. Bone window settings were reviewed which show nothing acute within the visualized paranasal sinuses or mastoid sinuses. No acute calvarial abnormality is appreciated. Impression: 1. Soft tissue swelling and hematoma within the left side of the scalp. 2. Scattered senescent change as noted above. 3. No acute intracranial abnormality is seen. Diagnostic code #3 I agree with preliminary report from [facility], finalized on 10/08/20, 11:28 PM CDT
--- NOTE | 2020-10-09 08:32 | CT ---
CT lumbar spine Technique: Multiple axial sections were obtained through the lumbar spine. Reconstructed sagittal and coronal images were obtained. Comparison: Prior MRI lumbar spine study of 01/20/19. Findings: Mild diffuse posterior disc space narrowing is seen throughout the lumbar spine. Scattered anterior endplate osteophytes are seen. Previous fusion is seen at L5-S1 with artifact from trans-pedicle screws. Osteopenia is seen. Scattered degenerative apophyseal change is noted. No central canal stenosis or discrete neural foraminal stenosis is seen. Previous cholecystectomy is noted. Diffuse vascular calcification is seen within the thoracic aorta and iliac vessels. Scattered diverticuli are seen within the sigmoid colon. Mild degenerative vacuum phenomena is seen within the sacroiliac joints. No acute fracture or acute subluxation is appreciated. Impression: 1. Degenerative change as noted above. 2. Prior surgery at L5-S1. 3. Other findings believed to be incidental. No acute fracture or acute subluxation is seen. Diagnostic code #2 I agree with preliminary report from [facility], finalized on 10/08/20, 11:33 PM CDT
--- NOTE | 2020-10-09 08:54 | CT ---
CT thoracic spine Technique: Multiple axial sections were obtained through the thoracic spine. Reconstructed coronal and sagittal images were obtained. Comparison: Prior MRI thoracic spine study of 01/17/19. Findings: Scattered disc space narrowing is noted with endplate osteophytes. No discrete fracture or subluxation is seen. No central canal stenosis or discrete neural foraminal stenosis is seen. No fracture or subluxation is appreciated. Visualized lungs show slight scarring within the left upper chest. No acute parenchymal change is seen within the visualized lungs. Impression: 1. Degenerative change. 2. No acute abnormality is appreciated on CT study of the thoracic spine. Diagnostic code #2 I agree with preliminary report from [facility], finalized on 10/08/20, 11:33 PM CDT
== END 2020-10-08 23:20 | disposition home or self-care (01) ==
LOC: JD.ED 21:04
DX: S01.81XA Laceration without foreign body of other part of head, initial encounter (principal); S09.90XA Unspecified injury of head, initial encounter; E78.5 Hyperlipidemia, unspecified; I10 Essential (primary) hypertension; K21.9 Gastro-esophageal reflux disease without esophagitis; M19.90 Unspecified osteoarthritis, unspecified site; E66.9 Obesity, unspecified; Z68.25 Body mass index [BMI] 25.0-25.9, adult; Z79.899 Other long term (current) drug therapy; W01.10XA Fall on same level from slipping, tripping and stumbling with subsequent striking against unspecified object, initial encounter; N28.9 Disorder of kidney and ureter, unspecified
CPT/HCPCS: 12011; 36415; 70450; 70450-26; 72125; 72125-26; 72128; 72128-26; 72131; 72131-26; 80048; 99283; 99283-25

== ENCOUNTER 2020-12-09 10:01 | Observation (INO) | payer MEDICARE, OTHER ==
[~2020-12-09 10:01] MED LIST: EPINEPHrine 1 MG/ML SDV ONE; Lactated Ringers 1,000 ML IV SCH; Lidocaine 1%/Sod Bicarbonate in NS 8.4% 1 ML Syringe IDERM PRN; Ropivacaine 0.5% 5 MG/ML 30 ML SDV ONE; Sodium Chloride 0.9% 10 ML Syringe FLUSH PRN
--- NOTE | 2020-12-09 10:05 | PCM.SN.2 ---
- Free Text/Narrative Note: Right selective femoral nerve block at the adductor canal for post-procedure pain control under US guidance requested by Dr. Doan. Time Out: Start: End: Chart reviewed. Consent signed. Questions answered. Appropriate monitors applied. Time out performed. Right mid-shaft femur identified with ultrasound, scanning medially of femur, the femoral artery in the adductor canal visualized, and the femoral nerve located laterally to the artery. The skin was prepped lateral to the ultrasound probe with chlorahexadine times two. The 21ga 4 insulated block needle was inserted under direct ultrasound guidance into the adductor canal. 20mL of 0.5% ropivacaine with 1:200,000 epinephrine was injected circumferentially around the nerve with intermittent negative aspiration noted. Patient tolerated the procedure well. Sterile technique noted along with sterile gloves, mask, and sterile probe cover. See picture on progress note and vital signs on nurses notes. Block completed in PACU. Thank you, Huyen Irizarry CRNA
--- NOTE | 2020-12-09 10:47 | PCM.PREANE ---
Preanesthetic Assessment - Anesthesia/Transfusion/Family Hx Anesthesia History: Prior Anesthesia Without Reaction Family History of Anesthesia Reaction: No Transfusion History: No Prior Transfusion(s) Intubation History: Unknown - Review of Systems General: No Symptoms Pulmonary: Shortness of Breath, Cough Cardiovascular: No Symptoms Gastrointestinal: No Symptoms Neurological: Confusion Other: Reports: Easy Bruising - Physical Assessment NPO Status Date: 12/08/20 NPO Status Time: 21:30 ASA Class: 3 Mental Status: Alert & Oriented x3 Airway Class: Mallampati = 2 Dentition: Reports: Dentures (upper), Partial (lower) Thyro-Mental Finger Breadths: 3 Mouth Opening Finger Breadths: 3 ROM/Head Extension: Full Lungs: Clear to Auscultation, Normal Respiratory Effort Cardiovascular: Regular Rate, Regular Rhythm - Allergies Allergies/Adverse Reactions: Allergies Allergy/AdvReac Type Severity Reaction Status Date / Time acetaminophen [From [place]] Allergy Confusion Verified 12/06/20 14:15 hydrocodone [From [place]] Allergy Confusion Verified 12/06/20 14:15 orphenadrine Allergy Confusion Verified 12/06/20 14:15 - Acknowledgements Anesthesia Type Planned: Spinal, Regional Block Pt an Appropriate Candidate for the Planned Anesthesia: Yes Alternatives and Risks of Anesthesia Discussed w Pt/Guardian: Yes Pt/Guardian Understands and Agrees with Anesthesia Plan: Yes PreAnesthesia Questionnaire HEENT History: Reports: Impaired Vision Other HEENT History: wears glasses Cardiovascular History: Reports: Blood Clots/VTE/DVT, CAD, High Cholesterol, Hypertension, Other (See Below) (LBBB on EKG) Other Cardiovascular History: hyperlipidema Respiratory History: Reports: SOB, Other (See Below) Other Respiratory History: 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 Gastrointestinal History: Reports: GERD Genitourinary History: Reports: Chronic Renal Insuffiency, Urinary Incontinence RING PACKER History: Reports: Musculoskeletal History: Reports: Back Pain, Chronic, Osteoarthritis, Osteoporosis Other Musculoskeletal History: pins and rods in low back Psychiatric History: Reports: Anxiety, Depression Endocrine/Metabolic History: Reports: Obesity/BMI 30+, Other (See Below) Oncologic (Cancer) History: Reports: Lung - Infectious Disease History Infectious Disease History: Reports: Influenza - Past Surgical History Respiratory Surgical History: Reports: Lung Resection GI Surgical History: Reports: Cholecystectomy Neurological Surgical History: Reports: Lumbar Spine Musculoskeletal Surgical History: Reports: Knee Replacement - SUBSTANCE USE Tobacco Use Status *Q: Never Tobacco User - HOME MEDS Home Medications: Home Meds Cyanocobalamin (Vitamin B-12) [Vitamin B-12] 1,000 mcg PO DAILY 01/14/17 [History] Cholecalciferol (Vitamin D3) [Vitamin D3] 2,000 units PO DAILY 10/01/18 [History] Losartan [Cozaar] 100 mg PO DAILY 10/01/18 [History] Pantoprazole Sodium [Protonix] 40 mg PO DAILY 12/17/18 [History] Melatonin 10 mg PO BEDTIME PRN 03/25/20 [History] [place]-3/DHA/Epa/Fish Oil [[place] 3 500 Softgel] 1 cap PO DAILY 03/25/20 [History] Acetaminophen [Tylenol Arthritis] 650 mg PO BID PRN 10/08/20 [History] dilTIAZem HCL [Cartia Xt] 240 mg PO BEDTIME 10/08/20 [History] Apixaban [Eliquis] 2.5 mg PO BID #84 tablet 12/06/20 [Rx] traMADol [Ultram] 50 - 100 mg PO Q6H PRN #40 tab 12/06/20 [Rx] - CURRENT (IN HOUSE) MEDS Current Meds: Current Medications Morphine Sulfate 8 mg/Epinephrine HCl 0.3 mg/Cefuroxime Sodium 750 mg/Ketorolac Tromethamine 30 mg/Sodium Chloride 7.9 ml 0 mg .XX ASDIRECTED PRN PRN Reason: Pain Stop: 12/09/20 18:00 Lactated Ringer's (Ringers, Lactated) 1,000 mls @ 125 mls/hr IV ASDIRECTED SUELLEN Stop: 12/09/20 23:00 Lidocaine/Sodium Bicarbonate (Lidocaine 1%/Sod Bicarbonate In Ns 8.4% 1 Ml Syringe) 0.25 ml IDERM ONETIME PRN PRN Reason: Prior to IV Start Stop: 12/09/20 23:00 Sodium Chloride (Sodium Chloride 0.9% 10 Ml Syringe) 10 ml FLUSH ASDIRECTED PRN PRN Reason: Keep Vein Open Stop: 12/09/20 23:00 Discontinued Medications Epinephrine HCl (Epinephrine 1 Mg/Ml Sdv) Confirm Administered Dose 1 mg .ROUTE .STK-MED ONE Stop: 12/09/20 08:21 Ropivacaine (Ropivacaine 0.5% 5 Mg/Ml 30 Ml Sdv) Confirm Administered Dose 30 ml .ROUTE .[facility] ONE Stop: 12/09/20 08:21
[2020-12-09] MEDS ORDERED: Propofol 200 MG/20 ML SDV ONE ×4 (11:32→14:59)
[2020-12-09] MEDS ORDERED: Lidocaine 1% 4 ML ONE (11:32)
[2020-12-09] MEDS ORDERED: ceFAZolin 1 GM Vial ONE (11:32)
[2020-12-09] MEDS ORDERED: ePHEDrine 50 MG/ML SDV ONE (13:45)
[2020-12-09] MEDS ORDERED: Lactated Ringers 1,000 ML ONE (14:04)
[2020-12-09] MEDS: Vancomycin 1 GM SDV ONE ×2 (14:25→14:45)
[2020-12-09] MEDS: Morphine 8 MG, EPINEPHrine 0.3 MG, Cefuroxime 750 MG, Ketorolac 30 MG, Sodium Chloride ... PRN ×10 (14:26→14:45)
[2020-12-09] MEDS: fentaNYL 100 MCG/2 ML SDV IVPUSH PRN ×2 (15:30→15:41)
--- NOTE | 2020-12-09 15:39 | PCM.POSTAN ---
POST ANESTHESIA ASSESSMENT - MENTAL STATUS Mental Status: Confused Free Text/Narrative:: Baseline confusion. Patient recognizes daughter. - VITAL SIGNS Vital Signs: Last Vital Signs Temp 97.7 F 12/09/20 10:20 Pulse 56 L 12/09/20 10:20 Resp 20 12/09/20 10:20 BP 158/59 H 12/09/20 10:20 Pulse Ox 93 L 12/09/20 10:20 PACU Vital signs 1505 95/53 HR 69 Sats 96 RA RR 20 - RESPIRATORY Respiratory Status: Respiratory Rate WNL, Airway Patent, O2 Saturation Stable - CARDIOVASCULAR CV Status: Pulse Rate WNL, Blood Pressure Stable - GASTROINTESTINAL GI Status: No Symptoms - POST OP HYDRATION Hydration Status: Adequate & Stable
--- NOTE | 2020-12-09 15:42 | PCM.SN.2 ---
- Free Text/Narrative Note: Right selective femoral nerve block at the adductor canal for post-procedure pain control under US guidance requested by Dr. Doan. Date: 12/09/20 Time Out: 1513 Start: 1515 End: 152 Chart reviewed. Consent signed. Questions answered. Appropriate monitors applied. Time out performed. Right mid-shaft femur identified with ultrasound, scanning medially of femur, the femoral artery in the adductor canal visualized, and the femoral nerve located laterally to the artery. The skin was prepped lateral to the ultrasound probe with chlorahexadine times two. The 21ga 4 insulated block needle was inserted under direct ultrasound guidance into the adductor canal. 25mL of 0.5% ropivacaine with 1:200,000 epinephrine was injected circumferentially around the nerve with intermittent negative aspiration noted. Patient tolerated the procedure well. Sterile technique noted along with sterile gloves, mask, and sterile probe cover. See picture on progress note and vital signs on nurses notes. Block completed in PACU. Jacquelyn Saeed, [employer] SERVICE SUPERVISOR
--- NOTE | 2020-12-09 16:09 | CR ---
Right knee: AP and cross-table lateral views of the right knee were obtained. Comparison: Prior right knee CT study of 11/26/20. Knee prosthesis is seen as well as patellar prosthesis. Alignment of the prosthetic components appears within normal limits. Soft tissue air is noted. Minimal vascular calcification is seen. No underlying bony abnormality is seen. Impression: 1. Satisfactory post-op radiographic appearance of recently placed right knee prosthesis. Diagnostic code #2
[2020-12-09] MEDS ORDERED: Naloxone 0.4 MG/ML SDV IVPUSH PRN (16:12)
[2020-12-09] MEDS ORDERED: Ondansetron 4 MG/2 ML SDV IVPUSH PRN (16:12)
[2020-12-09] MEDS ORDERED: Acetaminophen 325 MG Tab PO PRN (16:16)
[2020-12-09] MEDS: traMADol 50 MG Tab PO PRN (17:02)
--- NOTE | 2020-12-09 19:43 | PCM.OPNOTE ---
- General Post-Op/Procedure Note Date of Surgery/Procedure: 12/09/20 Operative Procedure(s): right total knee arthroplasty with [employer] Pre Op Diagnosis: right knee osteoarthrosis Post-Op Diagnosis: Same Anesthesia Technique: Local, MAC, Spinal Primary Surgeon: Maged Doan Anesthesia Provider: Jacquelyn Saeed Freight Broker Agent: Emma Vernon Freight Broker Agent: Veronica Martínez EBL in mLs: 5 Complications: None Condition: Good Free Text/Narrative:: Intake & Output 12/09/20 12/09/20 12/09/20 06:59 14:59 22:59 Intake Total 310 Balance 310 1 CR femur cemented 1 tibia 10mm 29x9
[2020-12-09] MEDS ORDERED: hydrALAZINE 20 MG/ML SDV IVPUSH PRN (20:00)
[2020-12-09] MEDS: ceFAZolin 2 GM in Premix Bag 1 BAG IV SCH (20:32)
[2020-12-09] MEDS ORDERED: Diltiazem 240 MG Cap.ER PO SCH (21:00)
[2020-12-10] MEDS: ceFAZolin 2 GM in Premix Bag 1 BAG IV SCH ×2 (04:59→12:32)
--- NOTE | 2020-12-10 07:12 | PCM.CONS ---
<ParisGuero blank - Last Filed: 12/10/20 11:36> H&P History of Present Illness - General Date of Service: 12/10/20 Admit Problem/Dx: Admission Diagnosis/Problem Admission Diagnosis/Problem Knee pain Source of Information: Patient, Old Records, Provider, RN, RN Notes Reviewed History Limitations: Reports: No Limitations - History of Present Illness Initial Comments - Free Text/Narative: Swapna Aponte is an 85 yo female patient of Dr. Doan who is post-operative day 1 of right TKA. Hospital medicine was consulted for post-operative hypertension. At this time she is resting comfortably in bed. Pain is controlled. She denies any chest pain, shortness of breath, palpitations, nausea, or vomiting. 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 She is a full code. Her primary care provider is Dr. Verdin. - Related Data Allergies/Adverse Reactions: Allergies Allergy/AdvReac Type Severity Reaction Status Date / Time acetaminophen [From [place]] AdvReac Confusion Verified 12/10/20 00:33 hydrocodone [From [place]] AdvReac Confusion Verified 12/10/20 00:33 orphenadrine AdvReac Confusion Verified 12/10/20 00:33 Home Medications: Home Meds Cyanocobalamin (Vitamin B-12) [Vitamin B-12] 1,000 mcg PO DAILY 01/14/17 [History] Cholecalciferol (Vitamin D3) [Vitamin D3] 5,000 units PO DAILY 10/01/18 [History] Losartan [Cozaar] 100 mg PO DAILY 10/01/18 [History] Pantoprazole Sodium [Protonix] 40 mg PO DAILY 12/17/18 [History] Melatonin 10 mg PO BEDTIME PRN 03/25/20 [History] Easton-3/DHA/Epa/Fish Oil [[place] 3 500 Softgel] 1 cap PO DAILY 03/25/20 [History] Acetaminophen [Tylenol Arthritis] 650 mg PO BID PRN 10/08/20 [History] dilTIAZem HCL [Cartia Xt] 240 mg PO BEDTIME 10/08/20 [History] Apixaban [Eliquis] 2.5 mg PO BID #84 tablet 12/06/20 [Rx] traMADol [Ultram] 50 - 100 mg PO Q6H PRN #40 tab 12/06/20 [Rx] Acetaminophen [Tylenol] 650 mg PO DAILY 12/10/20 [History] Past Medical History HEENT History: Reports: Impaired Vision Other HEENT History: wears glasses Cardiovascular History: Reports: Blood Clots/VTE/DVT, CAD, High Cholesterol, Hypertension, Other (See Below) Other Cardiovascular History: left bundle branch block, vericose veins Respiratory History: Reports: SOB Other Respiratory History: 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: Musculoskeletal History: Reports: Back Pain, Chronic, Osteoarthritis, Other (See Below) Other Musculoskeletal History: pins and rods in low back; falls; left shoulder pain; vertebral compression fracture Neurological History: Reports: Other (See Below) Other Neuro History: age-related cognitive decline, confusion, burning sensation of foot Psychiatric History: Reports: Other (See Below) Other Psychiatric History: age-related cognitive decline, confusion Endocrine/Metabolic History: Reports: Vitamin D Deficiency Oncologic (Cancer) History: Reports: Lung Dermatologic History: Reports: Cellulitis - Infectious Disease History Infectious Disease History: Reports: Influenza, Other (See Below) Other Infectious Disease History: herpes zoster - Past Surgical History HEENT Surgical History: Reports: None Cardiovascular Surgical History: Reports: Coronary Artery Bypass GI Surgical History: Reports: Cholecystectomy, Colonoscopy, Hernia, Inguinal Endocrine Surgical History: Reports: None Neurological Surgical History: Reports: Lumbar Spine Musculoskeletal Surgical History: Reports: Knee Replacement, Other (See Below) Other Musculoskeletal Surgeries/Procedures:: foot surgery; lower back surgery Oncologic Surgical History: Reports: None Dermatological Surgical History: Reports: None Social & Family History - Family History Family Medical History: No Pertinent Family History - Tobacco Use Tobacco Use Status *Q: Never Tobacco User - Caffeine Use Caffeine Use: Reports: None Other Caffeine Use: "not every day" - Recreational Drug Use Recreational Drug Use: No - Living Situation & Occupation Living situation: Reports: , Alone Occupation: Retired H&P Review of Systems - Review of Systems: Review Of Systems: See Below General: Reports: No Symptoms. Denies: Fever, Chills HEENT: Reports: No Symptoms. Denies: Headaches, Sore Throat Pulmonary: Reports: No Symptoms. Denies: Wheezing, Pleuritic Chest Pain, Cough, Sputum Cardiovascular: Reports: No Symptoms. Denies: Chest Pain, Palpitations Gastrointestinal: Reports: No Symptoms. Denies: Abdominal Pain, Constipation, Diarrhea, Nausea, Vomiting Genitourinary: Reports: No Symptoms. Denies: Pain Musculoskeletal: Reports: No Symptoms, Leg Pain Skin: Reports: No Symptoms. Denies: Cyanosis Psychiatric: Reports: No Symptoms. Denies: Confusion Neurological: Reports: Difficulty Walking, Weakness, Gait Disturbance. Denies: Numbness, Tingling Hematologic/Lymphatic: Reports: No Symptoms Immunologic: Reports: No Symptoms Exam - Exam Exam: See Below - Vital Signs Vital Signs: Last Vital Signs Temp 98.2 F 12/10/20 05:03 Pulse 66 12/10/20 05:03 Resp 14 12/10/20 05:03 BP 147/76 H 12/10/20 05:03 Pulse Ox 92 L 12/10/20 06:25 Weight: 151 lb 6.4 oz - Exam Quality Assessment: DVT Prophylaxis. No: Supplemental Oxygen, Urinary Catheter General: Alert, Oriented, Cooperative. No: Mild Distress HEENT: Conjunctiva Clear, EACs Clear, Mucosa Moist & [place], Posterior Pharynx Clear Neck: Supple, Trachea Midline Lungs: Clear to Auscultation Cardiovascular: Regular Rate, Regular Rhythm GI/Abdominal Exam: Normal Bowel Sounds, Soft, Non-Tender, No Distention (Female) Exam: Deferred Rectal (Female) Exam: Deferred Back Exam: Normal Inspection, Decreased Range of Motion Extremities: Normal Capillary Refill, Leg Pain, Limited Range of Motion, Other (Bandage in place on right leg. Bandage is dry and intact. Cooling pack in place. ) Peripheral Pulses: 2+: Radial (L), Radial (R), Dorsalis Pedis (L), Dorsalis Pedis (R) Skin: Warm, Dry, Intact Neurological: Cranial Nerves Intact (Grossly ) Neuro Extensive - Mental Status: Alert, Oriented x3, Normal Mood/Affect Sepsis Event Note - Evaluation Sepsis Screening Result: No Definite Risk - Focused Exam Vital Signs: Vital Signs Temp Pulse Resp BP Pulse Ox Pulse Ox Pulse Ox 12/10/20 06:25 92 L 12/10/20 05:03 98.2 F 66 14 147/76 H 93 L 12/09/20 23:26 97.5 F 69 16 139/77 93 L 12/09/20 22:05 97.5 F 12/09/20 22:02 101 H 124/53 L 91 L 12/09/20 21:08 179/141 H 12/09/20 21:05 93 L 12/09/20 20:50 98 12/09/20 20:33 70 181/116 H 96 12/09/20 20:00 164/63 H 96 12/09/20 19:48 73 191/67 H 95 12/09/20 19:31 230/160 H 12/09/20 19:28 63 154/134 H 92 L 12/09/20 19:27 65 154/134 H 90 L Consult PN Assessment/Plan POD#: 1 Procedures: Procedures AIRWAY INHALATION TREATMENT (01/20/19) ASSAY OF BLOOD/URIC ACID (12/22/18) ASSAY OF CREATININE (10/17/15) ASSAY OF FREE THYROXINE (03/06/20) ASSAY OF MAGNESIUM (08/27/20) ASSAY OF NATRIURETIC PEPTIDE (03/25/20) ASSAY OF TROPONIN QUANT (03/25/20) ASSAY OF URINE CREATININE (01/16/17) ASSAY OF URINE OSMOLALITY (01/16/17) ASSAY THYROID STIM HORMONE (03/06/20) AUTOMATED PLATELET COUNT (01/16/17) C-REACTIVE PROTEIN (03/25/20) CARDIOVASCULAR STRESS TEST (11/26/20) CHEST X-RAY 2VW FRONTAL&LATL (01/16/17) COMPLETE CBC W/AUTO DIFF WBC (11/19/20) COMPREHEN METABOLIC PANEL (11/19/20) CREATINE MB FRACTION (03/25/20) CT ANGIOGRAPHY CHEST (03/25/20) CT CHEST SPINE W/O DYE (10/08/20) CT HEAD/BRAIN W/O DYE (10/08/20) CT LOWER EXTREMITY W/O DYE (11/26/20) CT LUMBAR SPINE W/O DYE (10/08/20) CT NECK SPINE W/O DYE (10/08/20) CT SFT TSUE NCK W/O & W/DYE (10/17/15) DXA BONE DENSITY AXIAL (11/20/20) ECHO EXAM OF ABDOMEN (06/21/18) ELECTROCARDIOGRAM TRACING (10/01/18) EMERGENCY DEPT VISIT (10/08/20) EMERGENCY DEPT VISIT (03/25/20) EMERGENCY DEPT VISIT (03/11/20) EMERGENCY DEPT VISIT (10/01/18) EMERGENCY DEPT VISIT (01/16/17) EXTREMITY STUDY (01/10/20) FIBRIN DEGRADATION QUANT (03/25/20) GAIT TRAINING THERAPY (01/16/17) GLUCOSE BLOOD TEST (03/25/20) HT MUSCLE IMAGE SPECT MULT (11/26/20) HYDRATE IV INFUSION ADD-ON (03/25/20) IIV4 VACC NO PRSV 0.5 ML IM (04/09/20) IMMUNIZATION ADMIN (03/11/20) INSERT TEMP BLADDER CATH (01/16/17) LIPID PANEL (03/06/20) MEASURE BLOOD OXYGEN LEVEL (01/16/17) METABOLIC PANEL TOTAL CA (10/08/20) MICROBE SUSCEPTIBLE DISK (01/16/17) MICROBE SUSCEPTIBLE MARVEL (06/09/18) MR-STAPH DNA AMP PROBE (11/26/20) MRI CHEST SPINE W/O DYE (01/20/19) MRI LUMBAR SPINE W/O DYE (01/20/19) MYCOPLASMA ANTIBODY (01/16/17) OFFICE O/P EST HI 40-54 MIN (08/27/20) OFFICE O/P EST LOW 20-29 MIN (05/28/20) OFFICE O/P EST MOD 30-39 MIN (08/29/19) OFFICE O/P EST SF 10-19 MIN (06/16/18) OFFICE O/P NEW LOW 30-44 MIN (06/09/18) OT EVAL LOW COMPLEX 30 MIN (01/16/17) PROTHROMBIN TIME (11/19/20) PT EVAL MOD COMPLEX 30 MIN (01/16/17) PUNCH BX SKIN SINGLE LESION (01/03/19) ROUTINE VENIPUNCTURE (11/19/20) RPR F/E/E/N/L/M 2.5 CM/< (10/08/20) SYPHILIS TEST NON-TREP QUAL (03/06/20) TDAP VACCINE 7 YRS/> IM (03/11/20) THER/PROPH/DIAG INJ IV PUSH (03/25/20) THER/PROPH/DIAG INJ SC/IM (01/16/17) THROMBOPLASTIN TIME PARTIAL (11/19/20) TISSUE EXAM BY PATHOLOGIST (01/03/19) UPR/LXTR ART STDY 3+ LVLS (12/02/18) UR ALBUMIN SEMIQUANTITATIVE (01/16/17) URINALYSIS AUTO W/SCOPE (03/25/20) URINE BACTERIA CULTURE (06/09/18) URINE CULTURE/COLONY COUNT (12/22/18) US EXAM ABDO BACK WALL COMP (01/16/17) VITAMIN B-12 (08/27/20) VITAMIN D 25 HYDROXY (08/27/20) X-RAY EXAM CHEST 2 VIEWS (11/19/20) X-RAY EXAM HIP UNI 2-3 VIEWS (12/30/18) X-RAY EXAM L-S SPINE 2/3 VWS (05/28/20) X-RAY EXAM OF HAND (04/09/20) X-RAY EXAM OF HUMERUS (10/02/20) X-RAY EXAM OF PELVIS (03/25/20) X-RAY EXAM OF SHOULDER (04/09/20) X-RAY EXAM THORAC SPINE 2VWS (05/28/20) (1) S/P total knee arthroplasty SNOMED Code(s): 1780700341362, 400235642, 6255899675497 Code(s): Z96.659 - PRESENCE OF UNSPECIFIED ARTIFICIAL KNEE JOINT Priority: High Qualifiers: Laterality: right Qualified Code(s): Z96.651 - Presence of right artificial knee joint (2) Osteoarthritis SNOMED Code(s): 811238432 Code(s): M19.90 - UNSPECIFIED OSTEOARTHRITIS, UNSPECIFIED SITE Priority: High Qualifiers: Osteoarthritis location: knee Osteoarthritis type: primary Laterality: right Qualified Code(s): M17.11 - Unilateral primary osteoarthritis, right knee (3) Postoperative hypertension SNOMED Code(s): 1245036138413 Code(s): I97.3 - POSTPROCEDURAL HYPERTENSION Priority: High (4) History of venous thromboembolism SNOMED Code(s): 690264329 Code(s): Z86.718 - PERSONAL HISTORY OF OTHER VENOUS THROMBOSIS AND EMBOLISM Priority: Medium (5) CAD (coronary artery disease) SNOMED Code(s): 27729255 Code(s): I25.10 - ATHSCL HEART DISEASE OF [place] CORONARY ARTERY W/O ANG P WEB SITE ADMINISTRATOR Priority: Medium Qualifiers: Coronary Disease-Associated Artery/Lesion type: unspecified vessel or lesion type [place] vs. transplanted heart: [place] heart Associated angina: unspecified whether angina present Qualified Code(s): I25.10 - Atherosclerotic heart disease of [place] coronary artery without angina pectoris (6) LBBB (left bundle branch block) SNOMED Code(s): 19212914 Code(s): I44.7 - LEFT BUNDLE-BRANCH BLOCK, UNSPECIFIED Priority: Low (7) GERD (gastroesophageal reflux disease) SNOMED Code(s): 154537098 Code(s): K21.9 - GASTRO-ESOPHAGEAL REFLUX DISEASE WITHOUT ESOPHAGITIS Priority: Low Qualifiers: Esophagitis presence: esophagitis presence not specified Qualified Code(s): K21.9 - Gastro-esophageal reflux disease without esophagitis (8) History of primary malignant neoplasm of left lung SNOMED Code(s): 41886799041726693 Code(s): Z85.118 - PERSONAL HISTORY OF MALIGNANT NEOPLASM OF BRONCHUS AND LUNG Priority: Low (9) CKD (chronic kidney disease) SNOMED Code(s): 983660744 Code(s): N18.9 - CHRONIC KIDNEY DISEASE, UNSPECIFIED Priority: Medium Qualifiers: Chronic kidney disease stage: stage 3 (moderate) Chronic kidney disease stage 3 subtype: stage 3b (GFR 30-44) Qualified Code(s): N18.32 - Chronic kidney disease, stage 3b (10) Urinary incontinence SNOMED Code(s): 566483632 Code(s): R32 - UNSPECIFIED URINARY INCONTINENCE Priority: Low Qualifiers: Urinary Incontinence type: unspecified incontinence Qualified Code(s): R32 - Unspecified urinary incontinence (11) Chronic back pain SNOMED Code(s): 372276922 Code(s): M54.9 - DORSALGIA, UNSPECIFIED; G89.29 - OTHER CHRONIC PAIN Priority: Low Qualifiers: Back pain location: back pain in unspecified location Back pain laterality: unspecified Qualified Code(s): M54.9 - Dorsalgia, unspecified; G89.29 - Other chronic pain (12) Anxiety SNOMED Code(s): 54528397 Code(s): F41.9 - ANXIETY DISORDER, UNSPECIFIED Priority: Low (13) Depression SNOMED Code(s): 33205401 Code(s): F32.9 - MAJOR DEPRESSIVE DISORDER, SINGLE EPISODE, UNSPECIFIED Priority: Low Qualifiers: Depression Type: other depression Qualified Code(s): F32.89 - Other specified depressive episodes (14) Obesity SNOMED Code(s): 119644159, 623418858 Code(s): E66.9 - OBESITY, UNSPECIFIED Priority: Low Qualifiers: Obesity type: unspecified obesity type Obesity classification: unspecified obesity classification Serious obesity comorbidity presence: unspecified whether serious comorbidity present Qualified Code(s): E66.9 - Obesity, unspecified (15) Hyperlipidemia SNOMED Code(s): 80372700 Code(s): E78.5 - HYPERLIPIDEMIA, UNSPECIFIED Priority: Low Qualifiers: Hyperlipidemia type: unspecified Qualified Code(s): E78.5 - Hyperlipidemia, unspecified (16) Hypertension SNOMED Code(s): 90235318 Code(s): I10 - ESSENTIAL (PRIMARY) HYPERTENSION Priority: Medium Qualifiers: Hypertension type: unspecified Qualified Code(s): I10 - Essential (primary) hypertension Problem List Initiated/Reviewed/Updated: Yes Plan: I/P: Acute: S/P right total knee arthroplasty - post-operative day 1 -DVT prophylaxis and pain management per primary care team -PT/OT -IS/RT -Monitor oxygen saturation -Titrate oxygen as needed -Home medications reviewed -Vital signs stable -Monitor labs -Pre-operative Hgb was 11.2 -Pre-operative GFR was 43 -Pre-operative creatinine was 1.2 Osteoarthritis of right knee -Pain management per primary care team Post-operative hypertension -Patient given home medications which improved BP -PRN hydralazine -Pain control Chronic: VTE CAD HLD HTN LBBB GERD 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 Her PCP is Dr. Verdin From hospital standpoint Swapna is doing quite well. She has been up working with therapies. She is off of oxygen. She has been utilizing her incentive s pirometer. Her pain is controlled. Hospital medicine was consulted as the patient was hypotensive postoperatively. Her home medications were given and she was given 1 dose of as needed hydralazine with good BP control. She remains clinically stable and her blood pressure remains controlled. She is cleared for discharge pending primary team and PT/OT agreement. Recommend continuing home BP meds at discharge. Patient is reportedly discharging to [facility] for a rehab stay which was arranged preoperatively. Thank you for allowing us to participate in the care of this patient!! Requesting Provider: Dr Bermudez Date Consult Requested: 12/09/20 Reason for Consult: Post-operative HTN Patient History Reviewed: Yes Admission H&P Reviewed: Yes Notified Requestor: Yes <Max Ho Jr - Last Filed: 12/10/20 16:56> H&P History of Present Illness - General Admit Problem/Dx: Admission Diagnosis/Problem Admission Diagnosis/Problem Knee pain Exam - Vital Signs Vital Signs: Last Vital Signs Temp 97.9 F 12/10/20 12:00 Pulse 66 12/10/20 12:00 Resp 18 12/10/20 12:00 BP 125/62 12/10/20 12:00 Pulse Ox 95 12/10/20 12:00 - Patient Data Lab Results Last 24 hrs: Laboratory Results - last 24 hr 12/10/20 Range/Units 08:35 SARS-CoV-2 RNA (GISSEL) Negative (NEGATIVE) Sepsis Event Note - Focused Exam Vital Signs: Vital Signs Temp Temp Pulse Pulse Resp BP BP 12/10/20 12:00 97.9 F 66 18 125/62 12/10/20 08:16 72 12/10/20 08:13 98.1 F 71 20 124/97 H 12/10/20 08:12 124/97 H 12/10/20 07:27 97.0 F 68 20 155/90 H 12/10/20 06:25 12/10/20 05:03 98.2 F 66 14 147/76 H Pulse Ox Pulse Ox 12/10/20 12:00 95 12/10/20 08:16 91 L 12/10/20 08:13 12/10/20 08:12 12/10/20 07:27 96 12/10/20 06:25 92 L 12/10/20 05:03 93 L Consult PN Assessment/Plan Procedures: Procedures AIRWAY INHALATION TREATMENT (01/20/19) ASSAY OF BLOOD/URIC ACID (12/22/18) ASSAY OF CREATININE (10/17/15) ASSAY OF FREE THYROXINE (03/06/20) ASSAY OF MAGNESIUM (08/27/20) ASSAY OF NATRIURETIC PEPTIDE (03/25/20) ASSAY OF TROPONIN QUANT (03/25/20) ASSAY OF URINE CREATININE (01/16/17) ASSAY OF URINE OSMOLALITY (01/16/17) ASSAY THYROID STIM HORMONE (03/06/20) AUTOMATED PLATELET COUNT (01/16/17) C-REACTIVE PROTEIN (03/25/20) CARDIOVASCULAR STRESS TEST (11/26/20) CHEST X-RAY 2VW FRONTAL&LATL (01/16/17) COMPLETE CBC W/AUTO DIFF WBC (11/19/20) COMPREHEN METABOLIC PANEL (11/19/20) CREATINE MB FRACTION (03/25/20) CT ANGIOGRAPHY CHEST (03/25/20) CT CHEST SPINE W/O DYE (10/08/20) CT HEAD/BRAIN W/O DYE (10/08/20) CT LOWER EXTREMITY W/O DYE (11/26/20) CT LUMBAR SPINE W/O DYE (10/08/20) CT NECK SPINE W/O DYE (10/08/20) CT SFT TSUE NCK W/O & W/DYE (10/17/15) DXA BONE DENSITY AXIAL (11/20/20) ECHO EXAM OF ABDOMEN (06/21/18) ELECTROCARDIOGRAM TRACING (10/01/18) EMERGENCY DEPT VISIT (10/08/20) EMERGENCY DEPT VISIT (03/25/20) EMERGENCY DEPT VISIT (03/11/20) EMERGENCY DEPT VISIT (10/01/18) EMERGENCY DEPT VISIT (01/16/17) EXTREMITY STUDY (01/10/20) FIBRIN DEGRADATION QUANT (03/25/20) GAIT TRAINING THERAPY (01/16/17) GLUCOSE BLOOD TEST (03/25/20) HT MUSCLE IMAGE SPECT MULT (11/26/20) HYDRATE IV INFUSION ADD-ON (03/25/20) IIV4 VACC NO PRSV 0.5 ML IM (04/09/20) IMMUNIZATION ADMIN (03/11/20) INSERT TEMP BLADDER CATH (01/16/17) LIPID PANEL (03/06/20) MEASURE BLOOD OXYGEN LEVEL (01/16/17) METABOLIC PANEL TOTAL CA (10/08/20) MICROBE SUSCEPTIBLE DISK (01/16/17) MICROBE SUSCEPTIBLE MARVEL (06/09/18) MR-STAPH DNA AMP PROBE (11/26/20) MRI CHEST SPINE W/O DYE (01/20/19) MRI LUMBAR SPINE W/O DYE (01/20/19) MYCOPLASMA ANTIBODY (01/16/17) OFFICE O/P EST HI 40-54 MIN (08/27/20) OFFICE O/P EST LOW 20-29 MIN (05/28/20) OFFICE O/P EST MOD 30-39 MIN (08/29/19) OFFICE O/P EST SF 10-19 MIN (06/16/18) OFFICE O/P NEW LOW 30-44 MIN (06/09/18) OT EVAL LOW COMPLEX 30 MIN (01/16/17) PROTHROMBIN TIME (11/19/20) PT EVAL MOD COMPLEX 30 MIN (01/16/17) PUNCH BX SKIN SINGLE LESION (01/03/19) ROUTINE VENIPUNCTURE (11/19/20) RPR F/E/E/N/L/M 2.5 CM/< (10/08/20) SYPHILIS TEST NON-TREP QUAL (03/06/20) TDAP VACCINE 7 YRS/> IM (03/11/20) THER/PROPH/DIAG INJ IV PUSH (03/25/20) THER/PROPH/DIAG INJ SC/IM (01/16/17) THROMBOPLASTIN TIME PARTIAL (11/19/20) TISSUE EXAM BY PATHOLOGIST (01/03/19) UPR/LXTR ART STDY 3+ LVLS (12/02/18) UR ALBUMIN SEMIQUANTITATIVE (01/16/17) URINALYSIS AUTO W/SCOPE (03/25/20) URINE BACTERIA CULTURE (06/09/18) URINE CULTURE/COLONY COUNT (12/22/18) US EXAM ABDO BACK WALL COMP (01/16/17) VITAMIN B-12 (08/27/20) VITAMIN D 25 HYDROXY (08/27/20) X-RAY EXAM CHEST 2 VIEWS (11/19/20) X-RAY EXAM HIP UNI 2-3 VIEWS (12/30/18) X-RAY EXAM L-S SPINE 2/3 VWS (05/28/20) X-RAY EXAM OF HAND (04/09/20) X-RAY EXAM OF HUMERUS (10/02/20) X-RAY EXAM OF PELVIS (03/25/20) X-RAY EXAM OF SHOULDER (04/09/20) X-RAY EXAM THORAC SPINE 2VWS (05/28/20) Plan: Case discussed in full. Agree with evaluation, assessment and plan. -Wilfrid Curran Jr., DO
--- NOTE | 2020-12-10 07:44 | PCM48HPAN ---
Post Anesthesia Note - EVALUATION WITHIN 48HRS OF ANESTHETIC Vital Signs in Normal Range: Yes Patient Participated in Evaluation: Yes Respiratory Function Stable: Yes Airway Patent: Yes Cardiovascular Function Stable: Yes Hydration Status Stable: Yes Pain Control Satisfactory: Yes Nausea and Vomiting Control Satisfactory: Yes Mental Status Recovered: Yes Vital Signs: Last Vital Signs Temp 36.8 C 12/10/20 05:03 Pulse 66 12/10/20 05:03 Resp 14 12/10/20 05:03 BP 147/76 H 12/10/20 05:03 Pulse Ox 92 L 12/10/20 06:25 - COMMENTS/OBSERVATIONS Free Text/Narrative:: Resting in bed this morning. No concerns or questions regarding anesthesia care.
[2020-12-10] MEDS ORDERED: Fish Oil/Omega-3 Fatty Acids 1 Gm Cap PO SCH (09:00)
[2020-12-10] MEDS ORDERED: Cyanocobalamin (Vitamin B12) 1,000 MCG Tab PO SCH (09:00)
[2020-12-10] MEDS ORDERED: Pantoprazole 40 MG Tab.CR PO SCH (09:00)
[2020-12-10] MEDS ORDERED: Cholecalciferol (Vitamin D3) 25 MCG Tab PO SCH (09:00)
[2020-12-10] MEDS ORDERED: Losartan 100 MG Tab PO SCH (09:00)
[2020-12-10] MEDS ORDERED: Apixaban 2.5 MG Tab PO SCH (09:00)
[2020-12-10] MEDS: traMADol 50 MG Tab PO PRN (09:04)
[2020-12-10 13:32] VITALS: BP 125/62; PULSE 66
--- NOTE | 2020-12-10 18:11 | PCM.SURGPN ---
- General Info Date of Service: 12/10/20 POD#: 1 Functional Status: Reports: Pain Controlled, Tolerating Diet, Ambulating, Urinating, Incentive Spirometry - Patient Data Vitals - Most Recent: Last Vital Signs Temp 97.9 F 12/10/20 12:00 Pulse 66 12/10/20 12:00 Resp 18 12/10/20 12:00 BP 125/62 12/10/20 12:00 Pulse Ox 95 12/10/20 12:00 Weight - Most Recent: 151 lb 6.4 oz I&O - Last 24 Hours: Intake & Output 12/10/20 12/10/20 12/10/20 06:59 14:59 22:59 Intake Total 900 770 0 Output Total 700 650 Balance 200 120 0 Lab Results Last 24 Hrs: Laboratory Results - last 24 hr 12/10/20 Range/Units 08:35 SARS-CoV-2 RNA (GISSEL) Negative (NEGATIVE) Med Orders - Current: Current Medications Discontinued Medications Acetaminophen (Acetaminophen 325 Mg Tab) 325 mg PO QID PRN PRN Reason: Pain Last Admin: 12/10/20 11:01 Dose: 325 mg Documented by: Apixaban (Apixaban 2.5 Mg Tab) 2.5 mg PO BID [facility] Last Admin: 12/10/20 08:21 Dose: 2.5 mg Documented by: Cefazolin Sodium (Cefazolin 1 Gm Vial) Confirm Administered Dose 2 gm .ROUTE .STK-MED ONE Stop: 12/09/20 11:33 Cholecalciferol (Cholecalciferol (Vitamin D3) 25 Mcg Tab) 50 mcg PO DAILY [facility] Last Admin: 12/10/20 08:11 Dose: 50 mcg Documented by: Morphine Sulfate 8 mg/Epinephrine HCl 0.3 mg/Cefuroxime Sodium 750 mg/Ketorolac Tromethamine 30 mg/Sodium Chloride 7.9 ml 0 mg .XX ASDIRECTED PRN PRN Reason: Pain Stop: 12/09/20 18:00 Last Admin: 12/09/20 14:45 Dose: 788.3 mg Documented by: Cyanocobalamin (Cyanocobalamin (Vitamin B12) 1,000 Mcg Tab) 1,000 mcg PO DAILY [facility] Last Admin: 12/10/20 08:11 Dose: 1,000 mcg Documented by: Diltiazem HCl (Diltiazem 240 Mg Cap.Er) 240 mg PO BEDTIME [facility] Last Admin: 12/09/20 20:23 Dose: 240 mg Documented by: Ephedrine Sulfate (Ephedrine 50 Mg/Ml Sdv) Confirm Administered Dose 50 mg .ROUTE .STK-MED ONE Stop: 12/09/20 13:46 Epinephrine HCl (Epinephrine 1 Mg/Ml Sdv) Confirm Administered Dose 1 mg .ROUTE .STK-MED ONE Stop: 12/09/20 08:21 Fentanyl (Fentanyl 100 Mcg/2 Ml Sdv) 50 mcg IVPUSH Q5M PRN PRN Reason: Pain Stop: 12/09/20 23:00 Last Admin: 12/09/20 15:41 Dose: 50 mcg Documented by: Fish Oil (Fish Oil/Sebastian-3 Fatty Acids 1 Gm Cap) 1 gm PO DAILY [facility] Last Admin: 12/10/20 08:10 Dose: 1 gm Documented by: Hydralazine HCl (Hydralazine 20 Mg/Ml Sdv) 10 mg IVPUSH Q4H PRN PRN Reason: Hypertension Last Admin: 12/09/20 21:09 Dose: 10 mg Documented by: Lactated Ringer's (Ringers, Lactated) 1,000 mls @ 125 mls/hr IV ASDIRECTED [facility] Stop: 12/09/20 23:00 Last Admin: 12/09/20 10:55 Dose: 125 mls/hr Documented by: Lidocaine HCl (Xylocaine-Mpf 1%) Confirm Administered Dose 4 mls @ as directed .ROUTE .STK-MED ONE Stop: 12/09/20 11:33 Lactated Ringer's (Ringers, Lactated) Confirm Administered Dose 1,000 mls @ as directed .ROUTE .STK-MED ONE Stop: 12/09/20 14:05 Cefazolin Sodium/Dextrose 2 gm (/ Premix) 50 mls @ 100 mls/hr IV Q8H [facility] Stop: 12/10/20 13:59 Last Admin: 12/10/20 12:32 Dose: 100 mls/hr Documented by: Lidocaine/Sodium Bicarbonate (Lidocaine 1%/Sod Bicarbonate In Ns 8.4% 1 Ml Syringe) 0.25 ml IDERM ONETIME PRN PRN Reason: Prior to IV Start Stop: 12/09/20 23:00 Last Admin: 12/09/20 10:55 Dose: 0.25 ml Documented by: Losartan Potassium (Losartan 100 Mg Tab) 100 mg PO DAILY [facility] Last Admin: 12/10/20 08:12 Dose: 100 mg Documented by: Naloxone HCl (Naloxone 0.4 Mg/Ml Sdv) 0.1 mg IVPUSH Q5M PRN PRN Reason: Oversedation Ondansetron HCl (Ondansetron 4 Mg/2 Ml Sdv) 4 mg IVPUSH Q6H PRN PRN Reason: Nausea/Vomiting Last Admin: 12/09/20 21:03 Dose: 4 mg Documented by: Pantoprazole Sodium (Pantoprazole 40 Mg Tab.Cr) 40 mg PO DAILY [facility] Last Admin: 12/10/20 08:11 Dose: 40 mg Documented by: Propofol (Propofol 200 Mg/20 Ml Sdv) Confirm Administered Dose 200 mg .ROUTE .STK-MED ONE Stop: 12/09/20 11:33 Propofol (Propofol 200 Mg/20 Ml Sdv) Confirm Administered Dose 200 mg .ROUTE .STK-MED ONE Stop: 12/09/20 13:54 Propofol (Propofol 200 Mg/20 Ml Sdv) Confirm Administered Dose 200 mg .ROUTE .STK-MED ONE Stop: 12/09/20 13:56 Propofol (Propofol 200 Mg/20 Ml Sdv) Confirm Administered Dose 200 mg .ROUTE .ST K-MED ONE Stop: 12/09/20 15:00 Ropivacaine (Ropivacaine 0.5% 5 Mg/Ml 30 Ml Sdv) Confirm Administered Dose 30 ml .ROUTE .STK-MED ONE Stop: 12/09/20 08:21 Sodium Chloride (Sodium Chloride 0.9% 10 Ml Syringe) 10 ml FLUSH ASDIRECTED PRN PRN Reason: Keep Vein Open Stop: 12/09/20 23:00 Tramadol HCl (Tramadol 50 Mg Tab) 50 - 100 mg PO Q4H PRN PRN Reason: Pain Last Admin: 12/10/20 09:04 Dose: 50 mg Documented by: Tranexamic Acid (Tranexamic Acid 1,000 Mg/10 Ml Amp) Confirm Administered Dose 1,000 mg .ROUTE .STK-MED ONE Stop: 12/09/20 12:33 Last Admin: 12/09/20 14:45 Dose: 1,000 mg Documented by: Vancomycin HCl (Vancomycin 1 Gm Sdv) Confirm Administered Dose 1 gm .ROUTE .STK- MED ONE Stop: 12/09/20 12:33 Last Admin: 12/09/20 14:45 Dose: 1 gm Documented by: - Exam Wound/Incisions: Dressing Dry and Intact General: Alert, Cooperative, No Acute Distress Lungs: Normal Respiratory Effort Extremities: Other (Pt was able to sense touch at RLE. Ama's negative.) Sepsis Event Note - Evaluation Sepsis Screening Result: No Definite Risk - Focused Exam Vital Signs: Vital Signs Temp Temp Pulse Pulse Resp BP BP 12/10/20 12:00 97.9 F 66 18 125/62 12/10/20 08:16 72 12/10/20 08:13 98.1 F 71 20 124/97 H 12/10/20 08:12 124/97 H 12/10/20 07:27 97.0 F 68 20 155/90 H 12/10/20 06:25 Pulse Ox Pulse Ox 12/10/20 12:00 95 12/10/20 08:16 91 L 12/10/20 08:13 12/10/20 08:12 12/10/20 07:27 96 12/10/20 06:25 92 L - Problem List Review Problem List Initiated/Reviewed/Updated: Yes - My Orders Last 24 Hours: Active Orders 24 hr Category Date Time Status Patient Status [ADT] Routine ADT 12/09/20 19:52 Active Consult to Physician [CONS] Routine Cons 12/09/20 19:53 Active Resuscitation Status Routine Resus Stat 12/09/20 17:34 Ordered - Assessment Assessment (Free Text/Narrative):: POD#1 - s/p right TKA - Plan Plan (Free Text/Narrative):: 1. The pt was admitted to Hospital under observation status last evening due to HTN. The pt's blood pressures have significantly improved. 2. D/C to NH today for continued monitoring and rehabilitation. 3. 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 The pt's case was discussed with Dr. Doan.
--- NOTE | 2020-12-10 18:16 | PCM.DCSUM1 ---
Discharge Summary - Hospital Course Brief History: Swapna is an 85 yo female who underwent right TKA with Dr. Doan on 12-09-2020. The procedure was completed under spinal anesthesia with sedation. A post-operative regional anesthetic block was provided. The pt tolerated the procedure well and was transferred to the Medical-Surgical Unit for extended floor recovery. The pt was noted to be hypertensive post-operatively and decision was made to admit to Hospital under observation status. A Hospitalist consult was obtained and medical management was provided by the Hospitalist service. The pt's blood pressures improved. On POD#1, Eliquis PO BID was initiated for VTE prophylaxis due to personal and family hx VTE. SCDs and TEDs were also ordered. A Mepilex dressing was placed at the incision site at the time of surgery and remained clean and dry. The pt participated in P.T. and O.T. and progressed well. The pt was allowed to WBAT. On POD#1, the pt was deemed appropriate to discharge to the skilled nursing for continued monitoring and therapy. Diagnosis: Stroke: No - Discharge Data Discharge Date: 12/10/20 Discharge Disposition: Home, Self-Care 01 Condition: Good - Referral to Home Health Primary Care Physician: Miles Bautista MD - Patient Summary/Data Operative Procedure(s) Performed: right total knee arthroplasty with [employer] Consults: Consultations 12/09/20 08:00 Consult to Case Management/Sheetmetal Patternmaker [CONS] Routine 12/09/20 16:10 OT Evaluation and Treatment [CONS] Routine PT Evaluation and Treatment [CONS] Routine 12/09/20 19:53 Consult to Physician [CONS] Routine - Patient Instructions Diet: Usual Diet as Tolerated Activity: Apply Ice, As Tolerated, Elevate Extremity, Full Weight Bearing Driving: Do Not Drive Showering/Bathing: May Shower Wound/Incision Care: Keep Operative Site/Wound Site Clean and Dry, Do NOT Change Dressing Notify Provider of: Fever, Increased Pain, Swelling and Redness, Drainage, Nausea and/or Vomiting Other/Special Instructions: Please get up and moving around EVERY HOUR while awake. This helps to prevent blood clots. Please use your walker and have help with mobility as needed. Take a short walk in your home every hour while awake. Starting on 12-10-2020, please take Eliquis TWICE daily. The Eliquis is being used for blood clot prevention. At home, please complete the exercises that you learned after surgery. Schedule for physical therapy. Use the pain medication as needed. The medication may cause drowsiness and constipation. Contact your primary care provider for instructions if you are constipated. You may use a stool softener like docusate sodium or Colace 100mg twice daily and/or a laxative like Miralax daily for constipation. Increase your water and fiber intake while you are using the pain medication. Please discontinue use of the prescription pain medication as soon as able. The goal is to use the least amount of prescription pain medication as possible and to discontinue use of the prescription pain medication as soon as possible. Please do not use other medications that may cause drowsiness (other pain medications, anxiety pills, cold medications, sleeping pills, etc) while using the prescription pain medication. Do not use alcohol while using the pain medication. You may use acetaminophen or Tylenol for pain management, however, please ensure you are not using over 4000 mg or 4 grams of acetaminophen per day. At this time, please do not use ibuprofen (Motrin, Advil) or naproxen (Aleve) for pain management as you are using the Eliquis. When the Eliquis course is completed in 6 weeks, you could use ibuprofen or naproxen for pain management (if this is allowed by your primary care provider). On the day following surgery, you may remove the MICHELE bandage on the surgical limb and put on the MAYI hose. If you can tolerate use of the MAYI hose, wear them during the day and remove them at night. Elevate the limb to decrease swelling. Elevating the limb above the level of the heart will be most effective. Elevating the foot higher than the knee will help to decrease swelling in the foot. Place ice to the area often. Place a towel between your skin and the blue pad. Please keep the dressing in place until follow-up. As long as the dressing is sealed and without a hole, the dressing is water resistant and therefore, you may have a shower. Please do not soak that dressing in a tub, pool, whirlpool. Notify the Clinic if the dressing becomes saturated. Increase your protein intake while you are healing. It is normal to have swelling and bruising at the surgical site, as well as above and below the surgical site. If you have diabetes or have been instructed by your primary care provider to monitor your blood sugars, please closely monitor your sugars. Notify your primary care provider of the values. Elevated sugars can increase the risk of infection. If you have questions or concerns, please call [phone] and leave a message for the nurse. Your call will be returned. - Discharge Plan *PRESCRIPTION DRUG MONITORING PROGRAM REVIEWED*: No *COPY OF PRESCRIPTION DRUG MONITORING REPORT IN PATIENT GE: No Prescriptions/Med Rec: Apixaban [Eliquis] 2.5 mg PO BID #84 tablet traMADol [Ultram] 50 - 100 mg PO Q6H PRN #40 tab PRN Reason: Pain Home Medications: Home Meds Cyanocobalamin (Vitamin B-12) [Vitamin B-12] 1,000 mcg PO DAILY 01/14/17 [History] Cholecalciferol (Vitamin D3) [Vitamin D3] 5,000 units PO DAILY 10/01/18 [History] Losartan [Cozaar] 100 mg PO DAILY 10/01/18 [History] Pantoprazole Sodium [Protonix] 40 mg PO DAILY 12/17/18 [History] Melatonin 10 mg PO BEDTIME PRN 03/25/20 [History] Watson-3/DHA/Epa/Fish Oil [Watson 3 500 Softgel] 1 cap PO DAILY 03/25/20 [History] Acetaminophen [Tylenol Arthritis] 650 mg PO BID PRN 10/08/20 [History] dilTIAZem HCL [Cartia Xt] 240 mg PO BEDTIME 10/08/20 [History] Apixaban [Eliquis] 2.5 mg PO BID #84 tablet 12/06/20 [Rx] traMADol [Ultram] 50 - 100 mg PO Q6H PRN #40 tab 12/06/20 [Rx] Acetaminophen [Tylenol] 650 mg PO DAILY 12/10/20 [History] Referrals: Emma Vernon PA-C [Physician Sanitary Chemist] - 12/17/20 2:45 pm Miles Bautista MD [Primary Care Provider] - 12/16/20 2:30 pm (check in 2:15) - Discharge Summary/Plan Comment DC Time >30 min.: No - Patient Data Vitals - Most Recent: Last Vital Signs Temp 97.9 F 12/10/20 12:00 Pulse 66 12/10/20 12:00 Resp 18 12/10/20 12:00 BP 125/62 12/10/20 12:00 Pulse Ox 95 12/10/20 12:00 Weight - Most Recent: 151 lb 6.4 oz I&O - Last 24 hours: Intake & Output 12/10/20 12/10/20 12/10/20 06:59 14:59 22:59 Intake Total 900 770 0 Output Total 700 650 Balance 200 120 0 Lab Results - Last 24 hrs: Laboratory Results - last 24 hr 12/10/20 Range/Units 08:35 SARS-CoV-2 RNA (GISSEL) Negative (NEGATIVE) Med Orders - Current: Current Medications Discontinued Medications Acetaminophen (Acetaminophen 325 Mg Tab) 325 mg PO QID PRN PRN Reason: Pain Last Admin: 12/10/20 11:01 Dose: 325 mg Documented by: Apixaban (Apixaban 2.5 Mg Tab) 2.5 mg PO BID [facility] Last Admin: 12/10/20 08:21 Dose: 2.5 mg Documented by: Cefazolin Sodium (Cefazolin 1 Gm Vial) Confirm Administered Dose 2 gm .ROUTE .STK-MED ONE Stop: 12/09/20 11:33 Cholecalciferol (Cholecalciferol (Vitamin D3) 25 Mcg Tab) 50 mcg PO DAILY [facility] Last Admin: 12/10/20 08:11 Dose: 50 mcg Documented by: Morphine Sulfate 8 mg/Epinephrine HCl 0.3 mg/Cefuroxime Sodium 750 mg/Ketorolac Tromethamine 30 mg/Sodium Chloride 7.9 ml 0 mg .XX ASDIRECTED PRN PRN Reason: Pain Stop: 12/09/20 18:00 Last Admin: 12/09/20 14:45 Dose: 788.3 mg Documented by: Cyanocobalamin (Cyanocobalamin (Vitamin B12) 1,000 Mcg Tab) 1,000 mcg PO DAILY [facility] Last Admin: 12/10/20 08:11 Dose: 1,000 mcg Documented by: Diltiazem HCl (Diltiazem 240 Mg Cap.Er) 240 mg PO BEDTIME [facility] Last Admin: 12/09/20 20:23 Dose: 240 mg Documented by: Ephedrine Sulfate (Ephedrine 50 Mg/Ml Sdv) Confirm Administered Dose 50 mg .ROUTE .STK-MED ONE Stop: 12/09/20 13:46 Epinephrine HCl (Epinephrine 1 Mg/Ml Sdv) Confirm Administered Dose 1 mg .ROUTE .STK-MED ONE Stop: 12/09/20 08:21 Fentanyl (Fentanyl 100 Mcg/2 Ml Sdv) 50 mcg IVPUSH Q5M PRN PRN Reason: Pain Stop: 12/09/20 23:00 Last Admin: 12/09/20 15:41 Dose: 50 mcg Documented by: Fish Oil (Fish Oil/Watson-3 Fatty Acids 1 Gm Cap) 1 gm PO DAILY [facility] Last Admin: 12/10/20 08:10 Dose: 1 gm Documented by: Hydralazine HCl (Hydralazine 20 Mg/Ml Sdv) 10 mg IVPUSH Q4H PRN PRN Reason: Hypertension Last Admin: 12/09/20 21:09 Dose: 10 mg Documented by: Lactated Ringer's (Ringers, Lactated) 1,000 mls @ 125 mls/hr IV ASDIRECTED [facility] Stop: 12/09/20 23:00 Last Admin: 12/09/20 10:55 Dose: 125 mls/hr Documented by: Lidocaine HCl (Xylocaine-Mpf 1%) Confirm Administered Dose 4 mls @ as directed .ROUTE .STK-MED ONE Stop: 12/09/20 11:33 Lactated Ringer's (Ringers, Lactated) Confirm Administered Dose 1,000 mls @ as directed .ROUTE .STK-MED ONE Stop: 12/09/20 14:05 Cefazolin Sodium/Dextrose 2 gm (/ Premix) 50 mls @ 100 mls/hr IV Q8H [facility] Stop: 12/10/20 13:59 Last Admin: 12/10/20 12:32 Dose: 100 mls/hr Documented by: Lidocaine/Sodium Bicarbonate (Lidocaine 1%/Sod Bicarbonate In Ns 8.4% 1 Ml Syringe) 0.25 ml IDERM ONETIME PRN PRN Reason: Prior to IV Start Stop: 12/09/20 23:00 Last Admin: 12/09/20 10:55 Dose: 0.25 ml Documented by: Losartan Potassium (Losartan 100 Mg Tab) 100 mg PO DAILY [facility] Last Admin: 12/10/20 08:12 Dose: 100 mg Documented by: Naloxone HCl (Naloxone 0.4 Mg/Ml Sdv) 0.1 mg IVPUSH Q5M PRN PRN Reason: Oversedation Ondansetron HCl (Ondansetron 4 Mg/2 Ml Sdv) 4 mg IVPUSH Q6H PRN PRN Reason: Nausea/Vomiting Last Admin: 12/09/20 21:03 Dose: 4 mg Documented by: Pantoprazole Sodium (Pantoprazole 40 Mg Tab.Cr) 40 mg PO DAILY [facility] Last Admin: 12/10/20 08:11 Dose: 40 mg Documented by: Propofol (Propofol 200 Mg/20 Ml Sdv) Confirm Administered Dose 200 mg .ROUTE .STK-MED ONE Stop: 12/09/20 11:33 Propofol (Propofol 200 Mg/20 Ml Sdv) Confirm Administered Dose 200 mg .ROUTE .STK-MED ONE Stop: 12/09/20 13:54 Propofol (Propofol 200 Mg/20 Ml Sdv) Confirm Administered Dose 200 mg .ROUTE .STK-MED ONE Stop: 12/09/20 13:56 Propofol (Propofol 200 Mg/20 Ml Sdv) Confirm Administered Dose 200 mg .ROUTE .STK-MED ONE Stop: 12/09/20 15:00 Ropivacaine (Ropivacaine 0.5% 5 Mg/Ml 30 Ml Sdv) Confirm Administered Dose 30 ml .ROUTE .STK-MED ONE Stop: 12/09/20 08:21 Sodium Chloride (Sodium Chloride 0.9% 10 Ml Syringe) 10 ml FLUSH ASDIRECTED PRN PRN Reason: Keep Vein Open Stop: 12/09/20 23:00 Tramadol HCl (Tramadol 50 Mg Tab) 50 - 100 mg PO Q4H PRN PRN Reason: Pain Last Admin: 12/10/20 09:04 Dose: 50 mg Documented by: Tranexamic Acid (Tranexamic Acid 1,000 Mg/10 Ml Amp) Confirm Administered Dose 1,000 mg .ROUTE .STK-MED ONE Stop: 12/09/20 12:33 Last Admin: 12/09/20 14:45 Dose: 1,000 mg Documented by: Vancomycin HCl (Vancomycin 1 Gm Sdv) Confirm Administered Dose 1 gm .ROUTE .STK- MED ONE Stop: 12/09/20 12:33 Last Admin: 12/09/20 14:45 Dose: 1 gm Documented by:
--- NOTE | 2020-12-15 22:32 | OR ---
DATE OF OPERATION: 12/09/2020 SURGEON: Maged Doan MD OPERATION PERFORMED: Right total knee arthroplasty with [place] [employer] robot[employer]. PREOPERATIVE DIAGNOSIS: Right knee osteoarthrosis. POSTOPERATIVE DIAGNOSIS: Right knee osteoarthrosis. ANESTHESIA: Local MAC with spinal. ANESTHESIA PROVIDER: Angel Healy. ASSISTANTS: Emma Vernon PA-C and Veronica Martínez LPN. ESTIMATED BLOOD LOSS: 5 mL. COMPLICATIONS: None. CONDITION: Stable. IMPLANTS: 1. Alvaro size 1 cemented CR femur. 2. Alvaro size 1 cemented tibial baseplate. 3. Alvaro size 1, 10 mm CS polyethylene insert. 4. Alvaro size 29 x 9 mm cemented asymmetric patella. DESCRIPTION OF PROCEDURE: The patient was identified in the preop holding area. Proper site was marked and identified by the surgeon. The patient was taken back to the operating theater where after adequate anesthesia, the patient's right lower extremity had a nonsterile tourniquet applied and it was sterilely prepped and draped in the usual sterile fashion. OR time-out was performed. The patient received 2 g IV Ancef. Leg akhtar was then applied to the right lower extremity. At this time, the right lower extremity was exsanguinated. Tourniquet was insufflated to 250 mmHg. Standard anterior incision was made. Medial parapatellar arthrotomy was created. Deep fibers of the MCL were raised as well as anterior fat pad was resected. Attention was turned to the patella. Patella measured 19 mm ; it was resected to 13 mm for 29 x 9 mm patella. Drill holes were then drilled. Attention was then turned to the femur. Two 4.0 pins were placed intra-incisionally for the [place] [employer] robotic array and then 2 more were placed on the tibia 3 fingerbreadths below the tibial tubercle. The Alvar[employer] Seth robotic arrays were placed on both the femur and the tibia then at this time as well as checkpoints on the femur and tibia. Hip center rotation was then obtained. The medial and lateral malleoli were marked. At this time, 40 points were obtained off the femur and the tibia for the [employer] Seth robotic plan. The patient's knee was brought to full extension. Varus and valgus stresses were applied and then into 90 degrees of flexion with a curved osteotome. Varus and valgus stresses were applied. At this time, [employer] robotic plan was done to 19 mm gaps in both flexion and extension. Alvaro Mako robotic arm was then brought in. A straight saw blade was then used for the tibial cut, the anterior femoral cut, the anterior chamfer cut, and the posterior femoral cut. All bony fragments were removed. Saw blade was then switched out and the distal femoral cut as well as the posterior chamfer cut was completed. At this time, medial and lateral menisci were resected as well as any posterior osteophytes. A size 1 trial tibia was then placed, size 1 trial femur was placed, and a 10 mm polyethylene trial liner was placed. The patient's knee was brought to full extension and flexion. Varus and valgus stresses were applied, was found to be stable with no instability. No signs of liftoff or loosening were noted. At this time, box cut was completed on the femur. The pins were removed from the femur and the tibia as well as the arrays and the checkpoints. Cement was mixed on the back table. All cut surfaces were irrigated with pulse lavage irrigation with Ancef and then completely dried. Once the cement was ready, the Alvaro size 1 cemented [place] tibial base plate having been previously stamped and drilled, was then cemented in place on the tibia. The Alvaro size 1 cemented femur was cemented into place. The patient had a [place] size 10 mm polyethylene insert placed. The patient's knee was brought to full extension. Excess cement was removed. A [place] size 29 x 9 mm cemented asymmetric patella was then cemented into place. 1 L of pulse lavage irrigation with Ancef was irrigated through the knee along with 400 mL of Irrisept irrigation. Periarticular injection was completed. Topical tranexamic acid and vancomycin powder were applied. A #2 barbed suture was used for closure of the medial parapatellar arthrotomy in flexion. 2-0 Vicryl and Stratafix were used for subcutaneous closure. Prineo was used for cutaneous closure. The patient had a sterile soft dressing applied. The tibial holes were closed with nylon, and this was also covered with a sterile soft dressing. The patient had an MICHELE wrap applied and was sent to PACU in stable condition. The patient tolerated the procedure well. MMANTON /[id number]
== END 2020-12-10 12:56 | disposition home or self-care (01) ==
LOC: JD.SDS 10:01 → JD.MS 17:01 → JD.SDS 19:52
PROVIDERS: ADMIT Orthopaedic Surgery; ATTEND Orthopaedic Surgery
DX: M17.11 Unilateral primary osteoarthritis, right knee (principal); I25.10 Atherosclerotic heart disease of native coronary artery without angina pectoris; E78.5 Hyperlipidemia, unspecified; E55.9 Vitamin D deficiency, unspecified; M81.0 Age-related osteoporosis without current pathological fracture; G89.18 Other acute postprocedural pain; N18.9 Chronic kidney disease, unspecified; I12.9 Hypertensive chronic kidney disease with stage 1 through stage 4 chronic kidney disease, or unspecified chronic kidney disease; Z20.822 Contact with and (suspected) exposure to COVID-19; Z79.899 Other long term (current) drug therapy; Z88.5 Allergy status to narcotic agent; Z88.8 Allergy status to other drugs, medicaments and biological substances; Z98.890 Other specified postprocedural states
CPT/HCPCS: 27447; 73560; 94761; 97110; 97116; 97161; 97165; 97535; A9270; C1713; C1776; G0378; J0171; J0360; J0690; J0697; J1885; J2270; J2405; J2704; J2795; J3010; J3370; J7120; U0002; 01402; 64450; 76942; 99100

== ENCOUNTER 2021-08-20 12:13 | Emergency (ER) | payer MEDICARE, OTHER ==
[2021-08-20 12:21] VITALS: BP 93/43; PULSE 59
[2021-08-20] MEDS ORDERED: Sodium Chloride 0.9% 10 ML Syringe FLUSH PRN (12:25)
== END 2021-08-20 15:09 | disposition home or self-care (01) ==
LOC: JD.ED 12:13
DX: I13.0 Hypertensive heart and chronic kidney disease with heart failure and stage 1 through stage 4 chronic kidney disease, or unspecified chronic kidney disease (principal); N18.9 Chronic kidney disease, unspecified; I50.9 Heart failure, unspecified; I25.10 Atherosclerotic heart disease of native coronary artery without angina pectoris; E78.00 Pure hypercholesterolemia, unspecified; K21.9 Gastro-esophageal reflux disease without esophagitis; M19.90 Unspecified osteoarthritis, unspecified site; Z88.5 Allergy status to narcotic agent; Z79.899 Other long term (current) drug therapy; Z79.01 Long term (current) use of anticoagulants
CPT/HCPCS: 36415; 71045; 71045-26; 80053; 83735; 83880; 84484; 85025; 85610; 85730; 93005; 99285-25

== ENCOUNTER 2022-01-10 13:45 | Emergency (ER) | payer MEDICARE, OTHER ==
[2022-01-10 14:12] VITALS: BP 147/51; PULSE 69
[2022-01-10] MEDS ORDERED: HYDROmorphone 0.5 MG/0.5 ML Syringe IM ONE (14:23)
== END 2022-01-10 17:00 | disposition home or self-care (01) ==
LOC: JD.ED 13:45
DX: L03.116 Cellulitis of left lower limb (principal); I25.10 Atherosclerotic heart disease of native coronary artery without angina pectoris; E78.00 Pure hypercholesterolemia, unspecified; I12.9 Hypertensive chronic kidney disease with stage 1 through stage 4 chronic kidney disease, or unspecified chronic kidney disease; N18.9 Chronic kidney disease, unspecified; K21.9 Gastro-esophageal reflux disease without esophagitis; Z88.5 Allergy status to narcotic agent; Z88.8 Allergy status to other drugs, medicaments and biological substances; Z79.899 Other long term (current) drug therapy
CPT/HCPCS: 36415; 80053; 85025; 86140; 93971; 96372; 99284; J1170; 99283